=== PATIENT | male | born 1975 | race African-American/Black ===

== ENCOUNTER 2019-10-02 12:00 | Inpatient (IN) | payer SELFPAY ==
[2019-10-02] VITALS (16 sets, daily range): BP systolic 137–164; BP diastolic 86–110; PULSE 107–135; RESP 16–38; TEMP 36.7–37.4; O2SAT 91–99; BMI 24.0
--- NOTE | ~2019-10-02 | XR_ITS ---
EXAMINATION: XR chest 1V portable DATE: 10/13/2019 05:57 INDICATION: Pneumonia. Intubated. TECHNIQUE: A single frontal view of the chest was obtained. COMPARISON: Chest single view 10/12/2019 FINDINGS: There are airspace opacities throughout the lungs bilaterally with sparing of the lateral c ostophrenic angles and lung apices. No pleural effusion or pneumothorax. The heart size is normal. Th e endotracheal tube. There is 4.8 cm above the kellie. The nasogastric tube tip is beyond the inferio r margin of the radiograph, but at least to the stomach. IMPRESSION: 1. Stable diffuse lung disease, most likely pneumocystis pneumonia. Reviewed, dictated and finalized at location A.
--- NOTE | ~2019-10-02 | XR_ITS ---
EXAMINATION: XR chest 1V portable INDICATION: Pneumonia TECHNIQUE: Portable AP chest at 0840 hours COMPARISON: 10/18/2019 FINDINGS: Diffuse bilateral airspace opacities persist with slight improvement in the right mid and l ower lung zones. There is no pleural effusion or pneumothorax. The cardiomediastinal silhouette is no rmal. IMPRESSION: 1. Diffuse lung disease with mild improvement in the right mid and lower lung zones, consistent with pneumocystis pneumonia. Reviewed, dictated and finalized at location A. IMPRESSION: 1. Diffuse lung disease with mild improvement in the right mid and lower lung z ones, consistent with pneumocystis pneumonia.
--- NOTE | ~2019-10-02 | XR_ITS ---
EXAMINATION: XR abdomen obstructive series DATE: 10/15/2019 09:28 INDICATION: Abdominal distention TECHNIQUE: Upright and supine views of the abdomen were obtained. COMPARISON: 10/12/2019 FINDINGS: The nasogastric tube is in the stomach. There are no dilated loops of bowel. No free intrap eritoneal gas is identified. A right-sided femoral catheter ends with its tip projecting in a right c ommon iliac vessel. Diffuse opacities are again noted in the lung bases. IMPRESSION: 1. Nonobstructive bowel gas pattern. Reviewed, dictated and finalized at location A.
--- NOTE | ~2019-10-02 | XR_ITS ---
EXAMINATION: XR chest ET placement DATE: 10/14/2019 00:38 INDICATION: Intubation. TECHNIQUE: A single frontal view of the chest was obtained. COMPARISON: Chest single view 10/13/2019 FINDINGS: There are airspace opacities throughout the lungs with sparing of the lung apices and later al costophrenic angles. No pleural effusion or pneumothorax. The heart size is normal. The endotrache al tube tip is 3.5 cm above the kellie. The nasogastric tube tip is in the stomach. IMPRESSION: 1. Stable diffuse lung disease, most likely pneumocystis pneumonia. Reviewed, dictated and finalized at location A.
--- NOTE | ~2019-10-02 | XR_ITS ---
EXAMINATION: XR chest ET placement, XR abdomen NG/feed tube insert DATE: 10/12/2019 02:57 INDICATION: TECHNIQUE: 1. Frontal view of the chest was obtained. 2. AP view of the abdomen was obtained. COMPARISON: Chest radiograph dated 10/08/2019 FINDINGS: Endotracheal tube tip 4.6 cm above the kellie. Significant worsening of diffuse relatively uniform i nterstitial and hazy airspace opacities also relatively sparing the subpleural lungs consistent with worsening moderate pulmonary edema versus less likely pneumonia. No pleural effusion or pneumothorax. Cardiomediastinal silhouette is normal. Nasogastric tube tip in proximal side port in the body of the stomach. Gas-filled but not frankly dil ated small bowel in the abdomen. IMPRESSION: 1. Worsening moderate pulmonary edema versus less likely pneumonia. 2. Nonspecific bowel gas pattern with gas-filled but not frankly dilated small bowel which could repr esent ileus, early/partial small bowel obstruction or gaseous distention from back mask ventilation i n the appropriate clinical setting. Reviewed, dictated and finalized at location A. IMPRESSION: 1. Worsening moderate pulmonary edema versus less likely pneumonia. 2. Nonspecific bowel gas pattern with gas-filled but not frankly dilated small bowel which could represent ileus, early/partial small bowel obstruction or gas eous distention from back mask ventilation in the appropriate clinical setting.
--- NOTE | ~2019-10-02 | XR_ITS ---
EXAMINATION: XR chest 1V portable DATE: 10/18/2019 05:16 INDICATION: Respiratory failure. TECHNIQUE: A single frontal view of the chest was obtained. COMPARISON: Chest single view 10/17/2019 FINDINGS: There are airspace opacities throughout the lungs bilaterally with sparing of the lateral c ostophrenic angles and lung apices. No pleural effusion or pneumothorax. The heart size is normal. IMPRESSION: 1. Diffuse lung disease with slight improvement on the left, consistent with pneumocystis pneumonia. Reviewed, dictated and finalized at location A. IMPRESSION: 1. Diffuse lung disease with slight improvement on the left, consistent with pn eumocystis pneumonia.
--- NOTE | ~2019-10-02 | XR_ITS ---
EXAMINATION: XR chest 1V portable DATE: 10/16/2019 06:13 INDICATION: Respiratory failure. TECHNIQUE: A single frontal view of the chest was obtained. COMPARISON: Chest single view 10/15/2019 FINDINGS: There are airspace opacities at the lungs bilaterally with sparing of the lateral costophre betty angles and lung apices. No pleural effusion or pneumothorax. The heart size is normal. The endotr acheal tube tip is 4.5 cm above the kellie. The nasogastric tube tip is beyond the inferior margin of the radiograph, but at least to the stomach. IMPRESSION: 1. Stable diffuse lung disease, consistent with pneumocystis pneumonia. Reviewed, dictated and finalized at location A.
--- NOTE | ~2019-10-02 | XR_ITS ---
EXAMINATION: XR chest 1V portable DATE: 10/17/2019 06:12 INDICATION: Respiratory failure. TECHNIQUE: A single frontal view of the chest was obtained. COMPARISON: Chest single view 10/16/2019 FINDINGS: There are airspace opacities throughout the lungs bilaterally with sparing of the lateral c ostophrenic angles and lung apices. No pleural effusion or pneumothorax. The heart size is normal. Th e endotracheal tube tip is 3.8 cm above the kellie. The nasogastric tube tip is in the stomach. IMPRESSION: 1. Diffuse lung disease with slight worsening on the right, consistent with pneumocystis pneumonia. Reviewed, dictated and finalized at location A. IMPRESSION: 1. Diffuse lung disease with slight worsening on the right, consistent with pne umocystis pneumonia.
--- NOTE | ~2019-10-02 | XR_ITS ---
EXAMINATION: XR chest 1V portable DATE: 10/15/2019 06:13 INDICATION: Respiratory failure. TECHNIQUE: A single frontal view of the chest was obtained. COMPARISON: Chest single view 10/14/2019 FINDINGS: There are airspace opacities throughout the lungs bilaterally with sparing of the lateral c ostophrenic angles and lung apices. No pleural effusion or pneumothorax. The heart size is normal. Th e endotracheal tube tip is 4.2 cm above the kellie. The nasogastric tube tip is in the stomach. IMPRESSION: 1. Stable diffuse lung disease, most likely pneumocystis pneumonia. Reviewed, dictated and finalized at location A.
--- NOTE | ~2019-10-02 | CT_ITS ---
EXAMINATION: CTA chest PE protocol DATE: 10/04/2019 11:14 INDICATION: Shortness of breath, hypoxia and tachycardia TECHNIQUE: Computed tomography (CT) pulmonary angiogram of the chest was performed with 100 mL Omnipa que-350 intravenous contrast. Additional 3D reconstructions utilizing coronal maximum intensity proje ction (MIP) were performed. Automated exposure control and iterative reconstruction technique were em ployed. The dose-length product was 233.26 mGy-cm. COMPARISON: None FINDINGS: Excellent contrast opacification of the pulmonary arteries. There is mild streak artifact from dense contrast in the superior vena cava and right atrium. No significant respiratory motion living diagnos tic quality study which demonstrates no pulmonary embolism. Mild paraseptal emphysema at the apices. There are diffuse groundglass opacities throughout both lungs with sparing of the immediate subpleura l lung. No septal line thickening or pleural effusion. Heart size is normal. No pericardial effusion. No pathologically enlarged thoracic lymphadenopathy. Visualized upper abdomen is unremarkable. Mild thoracolumbar dextrocurvature. IMPRESSION: 1. No pulmonary embolism. 2. Diffuse groundglass opacities throughout both lungs sparing the immediate subpleural lung. Differe ntial would include pulmonary edema although there is no septal line thickening to more specifically suggest this, atypical pneumonia (pattern would be atypical for Covid 19 but can be seen with pneumoc ystis jiroveci or other viral pneumonias), hypersensitivity pneumonitis, lymphocytic interstitial pne umonitis or nonspecific interstitial pneumonia which can be drug-induced, autoimmune or connective ti ssue disorder related. 3. Mild emphysema at the apices. Reviewed, dictated and finalized at location A. IMPRESSION: 1. No pulmonary embolism. 2. Diffuse groundglass opacities throughout both lungs sparing the immediate colin bpleural lung. Differential would include pulmonary edema although there is no septal line thickening to more specifically suggest this, atypical pneumonia (p attern would be atypical for Covid 19 but can be seen with pneumocystis jirovec i or other viral pneumonias), hypersensitivity pneumonitis, lymphocytic interst itial pneumonitis or nonspecific interstitial pneumonia which can be drug-induc ed, autoimmune or connective tissue disorder related. 3. Mild emphysema at the apices.
--- NOTE | ~2019-10-02 | XR_ITS ---
EXAMINATION: XR chest 2V DATE: 10/08/2019 14:07 INDICATION: Shortness of breath. Pneumonia. TECHNIQUE: Frontal and lateral views of the chest were obtained. COMPARISON: Chest single view 10/02/2019, chest CT 10/04/2019 FINDINGS: There are hazy airspace opacities throughout the lungs bilaterally with sparing of the cost ophrenic angles. No pleural effusion or pneumothorax. The heart size is normal. IMPRESSION: 1. Stable diffuse lung disease, most likely pneumocystis pneumonia. Reviewed, dictated and finalized at location B.
--- NOTE | ~2019-10-02 | XR_ITS ---
EXAMINATION: XR chest 1V portable INDICATION: Cough TECHNIQUE: Portable AP chest at 1243 hours COMPARISON: None available FINDINGS: There are diffuse bilateral airspace opacities. No pleural effusion or pneumothorax is iden tified. The cardiomediastinal silhouette is normal. The visualized osseous structures are unremarkabl e. IMPRESSION: 1. Diffuse lung disease, likely pneumonia. Distribution of disease is concerning for COVID 19 pneumon ia. Reviewed, dictated and finalized at location A. IMPRESSION: 1. Diffuse lung disease, likely pneumonia. Distribution of disease is concernin g for COVID 19 pneumonia.
--- NOTE | ~2019-10-02 | XR_ITS ---
EXAMINATION: XR chest 1V portable DATE: 10/13/2019 08:37 INDICATION: Respiratory failure. TECHNIQUE: A single frontal view of the chest was obtained. COMPARISON: Chest single view at 5:39 AM FINDINGS: There are airspace opacities throughout the lungs bilaterally with sparing of the lateral c ostophrenic angles and lung apices. No pleural effusion or pneumothorax. The heart size is normal. Th e endotracheal tube tip is 4.0 cm above the kellie. The nasogastric tube tip is beyond the inferior m argin of the radiograph, but at least to the stomach. IMPRESSION: 1. Stable diffuse lung disease, most likely pneumocystis pneumonia. Reviewed, dictated and finalized at location A.
--- NOTE | 2019-10-02 12:08 | ECG_ITS ---
Measurements Intervals [place] Rate: 118 P: 59 [place]: 112 QRS: 67 QRSD: 84 T: 61 QT: 304 QTc: 426 Interpretive Statements SINUS TACHYCARDIA ABNORMAL ECG Electronically Signed On 10-02-2019 12:54:14 CDT by Daniel Ngo D.O.
[2019-10-02 12:38] LABS: Basophils Percent Auto 0.2 % (0.2-1.2); Eosinophils Absolute Auto 0.1 K/mm3 (0-0.3); Eosinophils Percent Auto 0.4 % (0-4.4); Hematocrit 45.3 % (42.0-52.0); Hemoglobin 15.4 g/dL (14.0-18.0); Immature Granulocyte Absolute 0.28 K/mm3 (0.00-0.031); Immature Granulocyte Percent A 1.8 % (0-0.5); Lymphocytes Absolute Auto 1.73 K/mm3 (0.9-3.2); Lymphocytes Percent Auto 11.1 % (18.3-44.2); Mean Corpuscular Hemoglobin 29.4 pg (26-34); Mean Corpuscular Volume 86.5 fl (80-100); Monocytes Absolute Auto 0.9 K/mm3 (0.1-0.6); Neutrophils Absolute Auto 12.5 K/mm3 (1.3-6.7); Neutrophils Percent Auto 80.5 % (45.5-73.1); Platelet Count Result 431 k/mm3 (150-375); Red Blood Count 5.24 M/mm3 (4.6-6.20); Red Cell Distribution Width 11.9 % (11.5-14.5); White Blood Count 15.6 K/mm3 (4.5-10.0)
[2019-10-02 13:04] LABS: Anion Gap 11.6 mmol/L (7-16); Blood Urea Nitrogen 17 mg/dL (9-20); Calcium 9.4 mg/dL (8.4-10.2); Carbon Dioxide 25 mmol/L (22-30); Chloride 100 mmol/L (98-107); Estimated CRCL calculation 97 ml/min; Estimated Glomerular Filt Rate > 60; Glucose 100 mg/dL (75-110); Potassium 4.6 mmol/L (3.4-5.0); Sodium 132 mmol/L (137-145)
[2019-10-02] MEDS: SODIUM CHLORIDE 0.9% IV 1,000 ML 999 ML IV CONT (13:09)
[2019-10-02 13:10] LABS: Lactic Acid Reflex 1.3 mmol/L (0.7-2.1)
[2019-10-02 13:15] LABS: Alanine Aminotransferase 16 U/L (4-50); Albumin Level 3.4 g/dL (3.5-5.1); Alkaline Phosphatase 86 U/L (38-126); Aspartate Amino Transferase 44 U/L (17-59); Bilirubin,Total 0.3 mg/dL (0.2-1.3)
[2019-10-02 13:29] LABS: CRP 23.5 mg/dL (<1.0)
[2019-10-02 13:36] LABS: D Dimer 0.31 ug/mL (<0.48)
--- NOTE | 2019-10-02 14:06 | ED.SOB ---
HPI - SOB/Dyspnea General Chief Complaint: Shortness of Breath/Dyspnea <BARBARA Cantrell Last Filed: 10/02/19 14:12> Stated Complaint: cough, trouble breathing <BARBARA Cantrell Last Filed: 10/02/19 14:12> Time Seen by Provider: 10/02/19 12:19 <BARBARA Cantrell Last Filed: 10/02/19 14:12> Source: patient and family <BARBARA Cantrell Last Filed: 10/02/19 14:12> Mode of arrival: ambulatory <BARBARA Cantrell Last Filed: 10/02/19 14:12> Limitations: no limitations <BARBARA Cantrell Filed: 10/02/19 14:12> History of Present Illness HPI Narrative: Patient is a 44-year-old male who presents to emergency department for evaluation of upper respiratory symptoms and shortness of breath patient notes sick contact with COVID positive individual patient notes that the symptoms have been present for the last 10 days and have progressed patient denies vomiting does note dyspnea worse with activity and movement <BARBARA Cantrell Last Filed: 10/02/19 14:12> Related Data Home Medications: Home Medications Medication Instructions Recorded Confirmed ascorbic acid (vitamin C) 500 mg PO DAILY 10/02/19 10/02/19 fish [id number]-5-vit C-vit E 1 g PO DAILY 10/02/19 10/02/19 ginseng 250 mg PO DAILY 10/02/19 10/02/19 vitamin B complex [B 1 tablet PO DAILY 10/02/19 10/02/19 Complex-Vitamin B12] vitamin E 1,000 unit PO DAILY 10/02/19 10/02/19 <BARBARA Cantrell Last Filed: 10/02/19 14:12> Allergies/Adverse Reactions: Allergies Allergy/AdvReac Type Severity Reaction Status Date / Time strawberry Allergy Swelling Verified 10/02/19 14:02 of Lip/Tongue/Throat tomato Allergy Swelling Verified 10/02/19 14:03 of Lip/Tongue/Throat zinc Allergy Rash Verified 10/02/19 14:02 <BARBARA Cantrell Last Filed: 10/02/19 14:12> Review of Systems Review of Systems: All systems reviewed & are unremarkable except as noted in HPI and below <Griffin Munoz PA-C - Last Filed: 10/02/19 14:12> PMFSH Family History Family History: Family History (Updated 10/02/19 @ 16:05 by Keke Harris RN) Mother Cancer COVID-19 Father COVID-19 Sibling Diabetes mellitus Hypertension <Griffin Munoz PA-C - Last Filed: 10/02/19 14:12> Social History Social History: Social History (Updated 10/02/19 @ 14:07 by Griffin Munoz PA-C) Years smoked: 5 Smoking status: Former smoker Tobacco type: cigars Smoking end date: 09/18/19 Additional smoking assessment comments: 1 cigar per day Alcohol intake: current Substance use type: marijuana Other substance usage details: medical marijuana, social drinker Gender identity (if verbalized by the patient): Male Spiritual care concerns: No <Griffin Munoz PA-C - Last Filed: 10/02/19 14:12> Exam Narrative: Exam Narrative: GENERAL: Well-appearing, well-nourished, and in no acute distress. HEAD: Normocephalic, atraumatic. EYES: PERRLA and EOMI. ENT: Nares clear, no rhinorrhea or epistaxis. Mucous membranes moist. Oropharynx without tonsillar hypertrophy exudate or other lesions. Bilateral TMs pearly lane nonbulging NECK: Supple. No adenopathy or masses. CHEST: Coarse breath sounds on auscultation auscultation. No respiratory distress. No wheezes rales or rhonchi HEART: Regular rate and rhythm. No murmur heard. EXTREMITIES: Normal range of motion. No edema. SKIN: Warm, dry, no rash. NEURO: No focal deficits. Alert and oriented x3. PSYCH: Normal mood and affect. <Griffin Munoz PA-C - Last Filed: 10/02/19 14:12> Course Course Emergency Course: Patient in the room at this time aware of case findings treatment plan and will be admitted to the hospital due to hypoxemia and pneumonia likely attributed to COVID which she was tested for patient given antibiotics and fluids in the emergency department. . <Griffin Quispe
[2019-10-02] MEDS: KETOROLAC 30 MG/ML VIAL (*BKC) IV PUSH (15:12)
[2019-10-02] MEDS: LACTATED RINGERS 1,000 ML 125 ML IV CONT ×2 (15:19→22:49)
--- NOTE | 2019-10-02 15:45 | ADMGEN ---
This patient, Kirt Ramos, was admitted to [facility] Surg Room 331-01. Patient/family oriented to hospital policies and general routines including ID bracelet, bed and alarms, visiting hours, pain management, procedures, bathroom and other care routines, personal items, smoking policy, room service/diet, and visiting hours. Valuables list has been completed. Information on how to activate the Rapid Response Team has been discussed. Patient/Family are encouraged to report perceived risks to care and to ask questions if they do not understand what they are told or what they should do.
[2019-10-02] MEDS: hydrALAZINE HCL 20 MG/ML VIAL 10 MG IV PUSH (18:30)
[2019-10-02] MEDS: FAMOTIDINE 20 MG/2 ML VIAL IV PUSH (20:00)
[2019-10-02] MEDS: LABETALOL HCL INJ 100 MG/20 ML VIAL 20 MG IV PUSH (20:50)
[2019-10-02] MEDS: MELATONIN 5 MG TABLET PO (22:46)
[2019-10-03] VITALS (31 sets, daily range): BP systolic 154–170; BP diastolic 90–110; PULSE 116–155; RESP 18–24; TEMP 37–39.4; O2SAT 86–100; BMI 24.0
[2019-10-03 00:24] LABS: SARS-CoV-2 RNA PCR Negative
[2019-10-03] MEDS: BENZOCAINE 20% HEMORRHOIDAL OINTMENT 28 GM 1 APPLIC TOPICAL (01:15)
--- NOTE | 2019-10-03 03:18 | ECG_ITS ---
Measurements Intervals [place] Rate: 136 P: 46 ID: 150 QRS: 41 QRSD: 85 T: 14 QT: 268 QTc: 404 Interpretive Statements SINUS TACHYCARDIA NONSPECIFIC T-WAVE ABNORMALITY- INFERIOR LEADS ABNORMAL ECG Electronically Signed On 10-03-2019 7:04:34 CDT by Daniel Ngo D.O.
[2019-10-03 06:09] LABS: Basophils Percent Auto 0.2 % (0.2-1.2); Eosinophils Absolute Auto 0.1 K/mm3 (0-0.3); Eosinophils Percent Auto 0.5 % (0-4.4); Hematocrit 39.6 % (42.0-52.0); Hemoglobin 13.6 g/dL (14.0-18.0); Immature Granulocyte Absolute 0.16 K/mm3 (0.00-0.031); Immature Granulocyte Percent A 1.3 % (0-0.5); Lymphocytes Absolute Auto 1.31 K/mm3 (0.9-3.2); Lymphocytes Percent Auto 10.7 % (18.3-44.2); Mean Corpuscular HGB Conc 34.3 g/dl (32-36); Mean Corpuscular Hemoglobin 29.3 pg (26-34); Mean Corpuscular Volume 85.3 fl (80-100); Mean Platelet Volume 9.5 fl (7.4-10.4); Monocytes Absolute Auto 0.9 K/mm3 (0.1-0.6); Neutrophils Absolute Auto 9.9 K/mm3 (1.3-6.7); Neutrophils Percent Auto 80.3 % (45.5-73.1); Platelet Count Result 429 k/mm3 (150-375); Red Blood Count 4.64 M/mm3 (4.6-6.20); Red Cell Distribution Width 11.7 % (11.5-14.5); White Blood Count 12.3 K/mm3 (4.5-10.0)
[2019-10-03] MEDS: LACTATED RINGERS 1,000 ML 125 ML IV CONT (06:13)
[2019-10-03 06:28] LABS: Alanine Aminotransferase 16 U/L (4-50); Alkaline Phosphatase 76 U/L (38-126); Anion Gap 9.6 mmol/L (7-16); Aspartate Amino Transferase 41 U/L (17-59); Bilirubin,Total 0.1 mg/dL (0.2-1.3); Blood Urea Nitrogen 12 mg/dL (9-20); Calcium 8.6 mg/dL (8.4-10.2); Carbon Dioxide 29 mmol/L (22-30); Chloride 101 mmol/L (98-107); Estimated CRCL calculation 97 ml/min; Estimated Glomerular Filt Rate > 60; Glucose 104 mg/dL (75-110); Potassium 4.6 mmol/L (3.4-5.0); Sodium 135 mmol/L (137-145)
[2019-10-03] MEDS: hydrALAZINE HCL 20 MG/ML VIAL 10 MG IV PUSH ×2 (06:48→20:07)
--- NOTE | 2019-10-03 07:36 | PC.NURSE ---
Called and notified Jolene CARRILLO that patient COIVD test was negative.
[2019-10-03] MEDS: FAMOTIDINE 20 MG/2 ML VIAL IV PUSH ×2 (08:20→20:07)
[2019-10-03 09:39] LABS: Creatine Kinase 22 U/L (55-170); Lactate Dehydrogenase 1160 U/L (313-618)
[2019-10-03] MEDS: guaiFENesin 12 HR 600 MG TABCR PO ×2 (10:00→20:07)
[2019-10-03] MEDS: ALBUTEROL SULFATE (*SP) INHALER 1 PUFF (12:07)
[2019-10-03] MEDS: ALBUTEROL SULFATE (*SP) AEROSOL 1 PUFF 2 PUFF INHALATION ×2 (12:07→16:05)
--- NOTE | 2019-10-03 13:24 | PM.IMHP ---
H&P: HPI History of Present Illness Date/Time: 10/03/19 13:24 <Jolene Clarke PA-C - Last Filed: 10/03/19 20:30> Chief complaint: pneumonia,hyoxemia <Jolene Clarke PA-C - Last Filed: 10/03/19 20:30> Narrative: Date of admission: 10/02/2019 Date of service: 10/03/2019 Kirt Ramos is a healthy 44 year old male with no significant past medical history who presented to the emergency department on 10/02/2019 with complaints of shortness of breath. He had been having symptoms of shortness of breath and congestion for approximately 2 weeks along with subjective fevers (although he did not check his temperature), chills, cough, and weakness. He had been taking Sudafed and NyQuil at home. His symptoms persisted and he felt very short of breath while walking around at work yesterday, and therefore he felt he needed to seek emergency care. He complains of productive cough with yellow to clear sputum as well as dyspnea on exertion with short distances. He denied any chest pain, wheezing, palpitations, sore throat. He did complain of chest congestion. He had not had nausea or vomiting. He feels fatigued and run down. He has poor appetite but denies loss of taste or smell. He also has a mild headache. 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 His mom, dad, brother, and uncle have all tested positive for COVID, but he denies any direct contact with them. He has not traveled. Additionally, he complains of 10/10 rectal pain secondary to a hemorrhoid. He noticed this about 1.5 weeks ago and he believes it is due to straining. He also noted that he has had looser stools the past week. <Jolene Clarke PA-C - Last Filed: 10/03/19 20:30> Review of Systems Review of Systems: Narrative: He 12 point review of systems was reviewed with pertinent positives and negatives as per HPI. Additionally, he denies any dizziness, lightheadedness, confusion, visual changes, dysphagia, dysuria, hematuria, bleeding, bruising, anxiety, or depression. <Jolene Clarke PA-C - Last Filed: 10/03/19 20:30> [facility] Past Medical History Medical History: Medical History Healthy adult male Hemorrhoids Unspecified asthma in childhood <Jolene Clarke PA-C - Last Filed: 10/03/19 20:30> Family History Family History: Family History Mother COVID-19 Carcinoma of colon Breast cancer Father , Oct 05, 2019 at [facility] an hour after intubation, age 68 COVID-19 Sibling Diabetes mellitus Hypertension <Jolene Clarke PA-C - Last Filed: 10/03/19 20:30> Social History Social History: Social History Social History: Mr. Ramos lives in an apartment with his aunt. 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 He designates his mom, Zeina, as his surrogate decision maker. He would like to be a full code. Years smoked: 4 Smoking status: Former smoker Tobacco type: cigars Smoking end date: 09/18/19 Additional smoking assessment comments: Smokes 2 cigars per day. Stopped 2 weeks ago when he became SOB. No vaping. 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 Gender identity (if verbalized by the patient): Male Spiritual care concerns: No <Jolene Clarke PA-C - Last Filed: 10/03/19 20:30> Meds Home Medications and Allergies Home medications: Home Medications Medication Instructions Recorded Confirmed Type ascorbic acid (vitamin C) 500 mg PO DAILY 10/02/19 10/02/19 History fish [id number]-[id number]-9-vit C-vit E 1 g PO DAILY 10/02/19 10/02/19 History ginsen
[2019-10-03] MEDS: METOPROLOL TARTRATE INJ 5 MG/5 ML VIAL IV PUSH (14:03)
[2019-10-03] MEDS: amLODIPine BESYLATE 5 MG TABLET PO (14:04)
[2019-10-03] MEDS: HYDROCORTISONE ACETATE 25 MG SUPPOSITORY RECTAL (14:31)
[2019-10-03] MEDS: ACETAMINOPHEN 325 MG TABLET 650 MG PO (14:31)
[2019-10-03 18:52] LABS: SARS-CoV-2 RNA PCR Negative
[2019-10-03] MEDS: DOCUSATE SODIUM 100 MG CAPSULE PO (20:07)
[2019-10-03] MEDS: MELATONIN 5 MG TABLET PO (20:09)
--- NOTE | 2019-10-03 22:01 | PM.EVENT ---
Event Note Event Note Event Note: The patient is desatting. So we put him on 6 L any still continue to saturate in 80s. We tried high-flow oxygen needs now 100%. The patient is diaphoretic and has a fever of 103. His blood pressure is up in his heart rate is up. With I ordered labetalol for him due to the high blood pressure and heart rate. I also ordered him IV Tylenol as a feel that his heart rate may go down once the temperature comes down. I discussed intubating the patient due to his tachypnea and the patient stated he does not want to be intubated. We will continue with the high-flow for now. But if he drops any further we may have to moved to the intensive care unit. I spoke with my collaborative so that he may monitor him closely through the night.
[2019-10-03] MEDS: LABETALOL HCL INJ 100 MG/20 ML VIAL IV PUSH (22:05)
[2019-10-03] MEDS: cloNIDine HCL 0.2 MG TABLET PO (23:23)
[2019-10-04] VITALS (15 sets, daily range): BP systolic 133–143; BP diastolic 75–103; PULSE 106–127; RESP 16–107; TEMP 36.8–37.9; O2SAT 90–96
[2019-10-04] MEDS: ACETAMINOPHEN 325 MG TABLET 650 MG PO (02:35)
[2019-10-04 07:21] LABS: Hematocrit 43.7 % (42.0-52.0); Hemoglobin 14.6 g/dL (14.0-18.0); Mean Corpuscular HGB Conc 33.4 g/dl (32-36); Mean Corpuscular Hemoglobin 29.3 pg (26-34); Mean Corpuscular Volume 87.8 fl (80-100); Platelet Count Result 448 k/mm3 (150-375); Red Blood Count 4.98 M/mm3 (4.6-6.20); Red Cell Distribution Width 11.9 % (11.5-14.5); White Blood Count 10.8 K/mm3 (4.5-10.0)
[2019-10-04 07:30] LABS: D Dimer 0.53 ug/mL (<0.48)
[2019-10-04 07:35] LABS: Alanine Aminotransferase 22 U/L (4-50); Albumin Level 3.1 g/dL (3.5-5.1); Alkaline Phosphatase 78 U/L (38-126); Anion Gap 11.5 mmol/L (7-16); Aspartate Amino Transferase 46 U/L (17-59); Bilirubin,Total 0.3 mg/dL (0.2-1.3); Blood Urea Nitrogen 16 mg/dL (9-20); Calcium 9.1 mg/dL (8.4-10.2); Carbon Dioxide 29 mmol/L (22-30); Chloride 97 mmol/L (98-107); Estimated CRCL calculation 86 ml/min; Estimated Glomerular Filt Rate > 60; Glucose 157 mg/dL (75-110); Lactate Dehydrogenase 1167 U/L (313-618); Potassium 4.5 mmol/L (3.4-5.0); Sodium 133 mmol/L (137-145)
--- NOTE | 2019-10-04 07:48 | PC.NURSE ---
Both of patient's covid tests have resulted as negative. Patient moved from rm [address] Gibson approved for patient to come off of isolation.
[2019-10-04 08:14] LABS: CRP 21.7 mg/dL (<1.0)
[2019-10-04] MEDS: ALBUTEROL SULFATE (*SP) AEROSOL 1 PUFF 2 PUFF INHALATION ×5 (08:55→19:50)
[2019-10-04] MEDS: amLODIPine BESYLATE 5 MG TABLET PO (09:39)
[2019-10-04] MEDS: DOCUSATE SODIUM 100 MG CAPSULE PO ×2 (09:39→21:22)
[2019-10-04] MEDS: FAMOTIDINE 20 MG/2 ML VIAL IV PUSH ×2 (09:39→21:22)
[2019-10-04] MEDS: guaiFENesin 12 HR 600 MG TABCR PO ×2 (09:40→21:22)
[2019-10-04 09:46] LABS: HIV 1/2 Ab P24 Ag 451
[2019-10-04 09:49] LABS: HIV 1/2 Ab P24 Ag Result Reactive (Negative)
--- NOTE | 2019-10-04 10:08 | PM.IMPN ---
Progress Note: A&P Assessment and Plan (1) Pneumonia: Qualifiers: Pneumonia type: due to unspecified organism Code(s): J18.9 - Pneumonia, unspecified organism Status: Acute Assessment and Plan: CXR shows diffuse lung disease, likely pneumonia. Initial CXR, labs, and clinical picture were highly suggestive of COVID-19, however patient had 2 negative tests. His symptoms have been ongoing approximately 2 weeks. His O2 requirements increased overnight to 6L high flow NC. He is now maintaining adequate oxygention on 2L high flow NC. Tmax 103.0. Continue IV rocephin Supportive care with supplemental O2, bronchodilators, incentive spirometer, cornet, mucinex, and acetaminophen as needed for fever. Monitor continuous pulse ox HIV screen drawn to evaluate for possible pneumonocystis pneumonia; found to be reactive Consult to infectious disease and recommendations are greatly appreciated. Sputum culture was inadequate for collection. Will attempt repeat sputum culture as well as fungal culture (2) Sinus tachycardia: Code(s): R00.0 - Tachycardia, unspecified Status: Acute Assessment and Plan: Review of telemetry reveals sinus tachycardia. On 10/01, HR elevated 120-130 and increased to 150s overnight. May be secondary to fever, infectious etiology, or pain. PE is considered given tachypnea, SOB, and hypoxia. TSH is wnl. HR is better controlled today in the 100-110s. He is not orthostatic. Continue to monitor HR on telemetry Chest CTA obtained today. Will await results. Continue Lovenox at this time. (3) Hypertension: Qualifiers: Hypertension type: essential hypertension Qualified Code(s): I10 - Essential (primary) hypertension Code(s): I10 - Essential (primary) hypertension Status: Acute Assessment and Plan: Blood pressure has been quite elevated since admission. He received IV hydralazine and labetalol with little improvement. He has no documented history of HTN but has not been evaluated in some time. Elevation may be exacerbated by pain. Continue amlodipine Continue prn hydralazine. Monitor blood pressures closely (4) Hemorrhoids: Qualifiers: Hemorrhoid type: unspecified Qualified Code(s): K64.9 - Unspecified hemorrhoids Code(s): K64.9 - Unspecified hemorrhoids Status: Acute Assessment and Plan: Secondary to straining. He has associated rectal pain but no rectal bleeding. Begin anusol suppository Begin colace to soften stool Continue benzocaine cream (5) Concern about sexually transmitted disease in male without diagnosis: Code(s): Z71.1 - Person with feared health complaint in whom no diagnosis is made Status: Acute Assessment and Plan: Reactive HIV screening 10/03. Patient has both receptive and penetrative sex with males. Approximately 8 months ago, he had protected sex using a condom with an HIV positive male who he reports had undetectable viral load. Reactive screening has been discussed with him. Check HIV RNA quantitative PCR, will await results Infectious disease consulted Subjective Date/time seen: 10/04/19 10:08 Interval history: Date of service: 10/04/2019 He is feeling better today. He has been coughing up clear sputum and feels that he is able to cough more readily. He got up and walked around his room this morning and did not have any HARRISON. He feels comfortable at rest. He felt feverish overnight but denies any fever or chills today. His appetite has been good. He denies dizziness, lightheadedness, weakness, chest pain, palpitations, abdominal pain, nausea, or vomiting. His pain related to his hemorrhoid has improved today. He had a soft BM this morning. Review of Systems Review of Systems: Narrative: A 12 point review of systems was reviewed with pertinent positives and negatives as per HPI. Exam Narrative: Exam Narrative: Mr. Ramos is ex
[2019-10-04] MEDS: ENOXAPARIN 60 MG/0.6 ML SYRINGE SUB-Q (10:30)
--- NOTE | 2019-10-04 14:04 | WPDINFPN2 ---
Progress Note: A&P Assessment and Plan (1) Concern about sexually transmitted disease in male without diagnosis: Code(s): Z71.1 - Person with feared health complaint in whom no diagnosis is made Status: Acute Assessment and Plan: + HIV screen, not a confirmed diagnosis, no AIDS. CAP REC Ctx and azithro. Await viral load confirmation Subjective Date/time seen: 10/04/19 14:04 Objective Data Vital Signs Vital Signs: Vital Signs - 24 hr 10/03/19 14:31 10/03/19 15:31 10/03/19 15:49 Temperature 38.7 C H 38.7 C H 38.2 C H Pulse Rate 123 H Respiratory Rate Blood Pressure 162/90 H Pulse Oximetry 10/03/19 16:00 10/03/19 18:00 10/03/19 20:00 Temperature 37.0 C 38.7 C H Pulse Rate 127 H 131 H 137 H Respiratory Rate 24 H 22 H Blood Pressure 160/100 H 164/109 H Pulse Oximetry 94 100 10/03/19 21:00 10/03/19 21:15 10/03/19 21:30 Temperature Pulse Rate 152 H 150 H Respiratory Rate Blood Pressure Pulse Oximetry 90 10/03/19 21:40 10/03/19 21:50 10/03/19 22:05 Temperature 39.4 C H Pulse Rate 150 H 150 H Respiratory Rate Blood Pressure Pulse Oximetry 100 86 L 100 10/03/19 22:06 10/03/19 22:36 10/03/19 23:00 Temperature 39.4 C H 38.7 C H Pulse Rate Respiratory Rate Blood Pressure 164/109 H Pulse Oximetry 10/03/19 23:20 10/04/19 00:00 10/04/19 02:35 Temperature 37.9 C H 37.6 C H Pulse Rate 127 H Respiratory Rate 18 Blood Pressure 138/75 Pulse Oximetry 96 96 10/04/19 03:35 10/04/19 04:00 10/04/19 04:02 Temperature 36.8 C 36.8 C Pulse Rate 106 H Respiratory Rate 20 107 H Blood Pressure 133/83 143/88 H Pulse Oximetry 96 10/04/19 04:04 10/04/19 06:19 10/04/19 08:00 Temperature 36.9 C Pulse Rate 108 H 110 H Respiratory Rate 18 Blood Pressure 143/90 H 137/103 H Pulse Oximetry 91 94 10/04/19 08:59 10/04/19 12:00 Temperature 37.1 C Pulse Rate 107 H Respiratory Rate 16 Blood Pressure 142/96 H Pulse Oximetry 94 94 Intake/Output Intake/Output: Intake & Output 10/01/19 10/02/19 10/03/19 10/04/19 23:59 23:59 23:59 23:59 Intake Total 2560 2180 150 Output Total 2400 500 Balance 2560 -220 -350 Meds/Results Medications: Active Medications Generic Name Dose Route Start Last Admin Trade Name Freq PRN Reason Stop Dose Admin Acetaminophen 650 mg 10/03/19 08:41 10/04/19 02:35 Tylenol Tablet PO 650 mg Q4H PRN Administration Fever, pain 1-3, OR MINER Albuterol 2 puff 10/03/19 12:00 10/04/19 08:58 Proventil Hfa INHALATION 2 puff QIDRT RASHAWN Administration Amlodipine Besylate 5 mg 10/03/19 13:20 10/04/19 09:39 Norvasc PO 5 mg QAM RASHAWN Administration Benzocaine 1 applic 10/03/19 01:09 10/03/19 01:15 Americaine Hemorrhoidal Ointment TOPICAL 1 applic Q4H PRN Administration Rectal Pain Docusate Sodium 100 mg 10/03/19 21:00 10/04/19 09:39 Colace Capsule PO 100 mg Q12HR RASHAWN Administration Enoxaparin Sodium 60 mg 10/04/19 09:00 Lovenox SUB-Q DAILY RASHAWN Famotidine 20 mg 10/02/19 21:00 10/04/19 09:39 Pepcid Iv IV PUSH 20 mg Q12HR RASHAWN Administration Guaifenesin 600 mg 10/03/19 09:00 10/04/19 09:40 Mucinex 12 Hr Tab PO 600 mg Q12HR RASHAWN Administration Hydralazine HCl 10 mg 10/03/19 19:41 10/03/19 20:07 Apresoline Hcl Inj IV PUSH 10 mg Q8H PRN Administration SBP >160 or DBP >105 Hydrocortisone Acetate 25 mg 10/03/19 13:44 10/03/19 14:31 Anusol-Hc Suppository RECTAL 25 mg Q12HR PRN Administration rectal pain Ceftriaxone Sodium/Dextrose 1 gm in 50 mls @ 100 mls/hr 10/03/19 15:00 10/03/19 14:46 Rocephin 1 Gm/D5w 50 Ml IVPB Infused Q24H RASHAWN Infusion Melatonin 5 mg 10/02/19 21:00 10/03/19 20:09 Melatonin PO 5 mg HS RASHAWN Administration Ondansetron HCl 4 mg 10/02/19 14:15 Zofran Inj IV PUSH Q4H PRN Nausea Radiology Results: ITS I
--- NOTE | 2019-10-04 15:18 | CONS_ITS ---
DATE OF CONSULTATION: 10/04/2019 REASON FOR CONSULTATION: Positive HIV screen. HISTORY OF PRESENT ILLNESS: The patient is a 44-year-old male who has had several sexual partners in the past. He reports a negative HIV screen about 4 months ago done just for his own reassurance and not due to any particular exposures. He is homosexual. He has never received blood transfusions, did not work in the healthcare field. His most recent sexual contact was with HIV-positive person, who reportedly was undetectable viral load. He began feeling ill about 2 weeks before admission with shortness of breath, nonproductive cough, followed by myalgias, fever sensation and generalized weakness. He presented to the emergency room and was admitted on the . His screen is not positive. Consultation requested. He has been on ceftriaxone and azithromycin is now being added. No other recent antibiotics. He has no pets at home. No wild animal exposures. No ill household contacts, although both parents have recently come down with drummond virus, but they have not been in contact with the patient. ALLERGIES: NO KNOWN DRUG ALLERGIES. HABITS: Stopped smoking at onset of his illness. Social drinker. PRESENT MEDICATIONS: As above. No immunosuppressants. PAST MEDICAL HISTORY: Denies any chronic medical illnesses. FAMILY HISTORY: Multiple cancers in his mother, also hypertension, diabetes. SOCIAL HISTORY: He is single. 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 REVIEW OF SYSTEMS: Constitutional, allergic, immunologic, respiratory, GI, and skin otherwise negative. PHYSICAL EXAMINATION: GENERAL: This is a middle-aged male, who appears his actual age, in no respiratory distress on supplemental O2. VITAL SIGNS: His temperature on arrival was normal. T-max yesterday afternoon up to 38.7 and lasting up to 39.4. 142/96, 107, 16, 94%. SKIN: No generalized rashes. EENT: The conjunctivae are normal. Oropharynx, oral mucosa normal, though nonspecific coating over his tongue, not suggestive of thrush. NECK: No masses. NODES: He has no axillary or cervical adenopathy. LUNGS: Clear to auscultation and percussion. CARDIAC: Tachycardic. Regular. No murmurs or gallops. ABDOMEN: Nontender, soft, scaphoid. No organomegaly. EXTREMITIES: Well perfused. No clubbing, cyanosis, edema. LABORATORY DATA: His HIV screen is as above. His white count was 12.3, now 10.8, hemoglobin 14.6, platelets are 448. Earlier differential showed minimal left shift. Sodium 133, down from 135. His glucose 137, but yesterday was 104. Ferritin is high. LDH 1167. CRP is 22. His COVID essay was nonreactive and urine Legionella pneumococcal antigens are in process. RADIOLOGY: I personally reviewed his chest x-ray, which shows a focal interstitial infiltrate in the right middle lobe. I also reviewed radiologist reading of his chest x-ray and chest CT. ASSESSMENT: 1. Dyspnea, cough, fever due to community-acquired pneumonia. His high ferritin does raise the possibility of drummond virus infection, although he has had a negative screen. 2. Positive HIV antibody, unconfirmed for diagnosis. Low suspicion for AIDS as a direct cause of #1. RECOMMENDATIONS: 1. Tobacco cessation. 2. Ceftriaxone and azithromycin. 3. Await viral load for the HIV before proceeding further. Thank you very much for asking me to see him. YAHAIRA DAVIS M.D. WEB OPERATIONS MANAGER WEB OPERATIONS MANAGER D I MT: Terri
[2019-10-04] MEDS: MELATONIN 5 MG TABLET PO (21:22)
[2019-10-04] MEDS: HYDROCORTISONE ACETATE 25 MG SUPPOSITORY RECTAL (21:22)
[2019-10-05] VITALS (17 sets, daily range): BP systolic 127–145; BP diastolic 77–98; PULSE 109–142; RESP 18–22; TEMP 37.1–37.8; O2SAT 84–99
[2019-10-05] MEDS: IBUPROFEN 600 MG TABLET PO ×2 (03:47→15:30)
[2019-10-05 06:10] LABS: Basophils Percent Auto 0.3 % (0.2-1.2); Eosinophils Percent Auto 0.3 % (0-4.4); Hematocrit 42.7 % (42.0-52.0); Hemoglobin 14.3 g/dL (14.0-18.0); Immature Granulocyte Absolute 0.29 K/mm3 (0.00-0.031); Immature Granulocyte Percent A 1.9 % (0-0.5); Lymphocytes Absolute Auto 1.45 K/mm3 (0.9-3.2); Lymphocytes Percent Auto 9.3 % (18.3-44.2); Mean Corpuscular HGB Conc 33.5 g/dl (32-36); Mean Corpuscular Hemoglobin 29.1 pg (26-34); Mean Platelet Volume 9.8 fl (7.4-10.4); Monocytes Absolute Auto 0.9 K/mm3 (0.1-0.6); Neutrophils Absolute Auto 12.9 K/mm3 (1.3-6.7); Neutrophils Percent Auto 82.2 % (45.5-73.1); Platelet Count Result 504 k/mm3 (150-375); Red Blood Count 4.91 M/mm3 (4.6-6.20); Red Cell Distribution Width 11.9 % (11.5-14.5); White Blood Count 15.6 K/mm3 (4.5-10.0)
[2019-10-05 06:28] LABS: Anion Gap 9.5 mmol/L (7-16); Blood Urea Nitrogen 23 mg/dL (9-20); CRP 8.1 mg/dL (<1.0); Calcium 9.2 mg/dL (8.4-10.2); Carbon Dioxide 29 mmol/L (22-30); Chloride 99 mmol/L (98-107); Estimated CRCL calculation 70 ml/min; Estimated Glomerular Filt Rate > 60; Glucose 116 mg/dL (75-110); Lactate Dehydrogenase 995 U/L (313-618); Potassium 4.5 mmol/L (3.4-5.0); Sodium 133 mmol/L (137-145)
[2019-10-05] MEDS: amLODIPine BESYLATE 5 MG TABLET PO (09:00)
[2019-10-05] MEDS: DOCUSATE SODIUM 100 MG CAPSULE PO ×2 (09:00→20:59)
[2019-10-05] MEDS: guaiFENesin 12 HR 600 MG TABCR PO ×2 (09:00→20:59)
[2019-10-05] MEDS: FAMOTIDINE 20 MG/2 ML VIAL IV PUSH ×2 (09:00→20:59)
[2019-10-05] MEDS: ENOXAPARIN 40 MG/0.4 ML SYRINGE SUB-Q (09:52)
[2019-10-05] MEDS: ALBUTEROL SULFATE (*SP) AEROSOL 1 PUFF 2 PUFF INHALATION ×4 (09:54→19:49)
[2019-10-05] MEDS: LORazepam 0.5 MG TABLET PO ×2 (10:16→20:59)
--- NOTE | 2019-10-05 11:25 | PM.IMPN ---
Progress Note: A&P Assessment and Plan (1) Pneumonia: Qualifiers: Pneumonia type: due to unspecified organism Code(s): J18.9 - Pneumonia, unspecified organism Status: Acute Assessment and Plan: CXR shows diffuse lung disease, likely pneumonia. Initial CXR, labs, and clinical picture were highly suggestive of COVID-19, however patient had 2 negative tests. His symptoms have been ongoing approximately 2 weeks. His O2 requirements have again increased overnight to 6L high flow NC. He has been fluctuating between 2-[address] showed diffuse groundglass opacities throughout bilateral lung jackman. Tmax 103.0. WBC 15.6. Continue IV rocephin and Azithromycin per ID recs Supportive care with supplemental O2, bronchodilators, incentive spirometer, cornet, mucinex, and acetaminophen as needed for fever. Monitor continuous pulse ox HIV screen drawn to evaluate for possible pneumonocystis pneumonia; found to be reactive Consult to infectious disease and recommendations are greatly appreciated. Sputum culture was inadequate for collection. Will attempt repeat sputum culture. Fungal culture and acid fast bacilli culture are pending. (2) Concern about sexually transmitted disease in male without diagnosis: Code(s): Z71.1 - Person with feared health complaint in whom no diagnosis is made Status: Acute Assessment and Plan: Reactive HIV screening 10/03. Patient has both receptive and penetrative sex with males. Approximately 8 months ago, he had protected sex using a condom with an HIV positive male who he reports had undetectable viral load. Reactive screening has been discussed with him. Check HIV RNA quantitative PCR, will await results Infectious disease consulted Will proceed with testing for additional STDs including hepatitis, gonorrhea, chlamydia, HSV, and RPR for syphilis (3) Sinus tachycardia: Code(s): R00.0 - Tachycardia, unspecified Status: Acute Assessment and Plan: Review of telemetry reveals sinus tachycardia. On 10/01, HR increased to 150s. Likely multifactorial given fever, infection, and pain. PE is considered given tachypnea, SOB, and hypoxia. TSH is wnl. HR is better controlled today in the 110s. He is not orthostatic. No pulmonary embolism seen on CTA. Continue to monitor HR on telemetry (4) Hypertension: Qualifiers: Hypertension type: essential hypertension Qualified Code(s): I10 - Essential (primary) hypertension Code(s): I10 - Essential (primary) hypertension Status: Acute Assessment and Plan: Blood pressure has been quite elevated since admission. He received IV hydralazine and labetalol with little improvement. He has no documented history of HTN but has not been evaluated in some time. BP seems to be improving with medication Continue amlodipine Continue prn hydralazine. He has not required any doses since 10/02. Monitor blood pressures closely (5) Hemorrhoids: Qualifiers: Hemorrhoid type: unspecified Qualified Code(s): K64.9 - Unspecified hemorrhoids Code(s): K64.9 - Unspecified hemorrhoids Status: Acute Assessment and Plan: Secondary to straining. He has associated rectal pain but no rectal bleeding. No evidence for thrombosis, abscess, or fissure. He has been having soft stools daily. Continue anusol suppository and benzocaine cream Continue colace to soften stool Will add lidocaine jelly (6) Emotional stress: Code(s): R45.7 - State of emotional shock and stress, unspecified Status: Acute Assessment and Plan: Unfortunately the patient's father today due to complications of COVID-19. The patient was informed by his family this morning. He feels sad but is handling the news as well as could be expected. Denies feeling depressed, hopeless, or suicidal ideation. He has spoken with his calender machine operator helper for support. He does feel this infor
[2019-10-05 11:56] LABS: Hepatitis B Surface Antigen Negative (Negative)
[2019-10-05 12:01] LABS: HAV RESULT Negative (Negative); Hepatitis B Core IgM Result Negative (Negative)
[2019-10-05 12:12] LABS: Hepatitis C Virus Antibody Reactive (Negative)
--- NOTE | 2019-10-05 14:15 | WPDINFPN2 ---
Progress Note: A&P Assessment and Plan (1) Concern about sexually transmitted disease in male without diagnosis: Code(s): Z71.1 - Person with feared health complaint in whom no diagnosis is made Status: Acute Assessment and Plan: 1. + HIV screen, not a confirmed diagnosis, no AIDS. 2. Hemorrhoids, with pain 3. CAP, still on O2, no + micro. 4. Hep C Ab + REC Ctx #4, and azithro #2, continue. Reorder ibuprofen for pain, and continue hydrocortisone suppository. Await viral load confirmation for both the HIV and the Hep C. Per patient wishes relayed to RN this AM, I did not discuss any personal health information with him today, due to visitors in the room. Subjective Date/time seen: 10/05/19 14:15 Interval history: hemorrhoid pain, not relieved with Tucks. Exam Narrative: Exam Narrative: afebrile Const: General: no acute distress Eyes: General: appearance normal, both eyes and all related structures Resp: Effort & Inspection: normal respiratory effort Auscultation: clear to auscultation bilaterally Cardio: Rate: regular rate Rhythm: regular rhythm Heart sounds: no murmurs GI: Inspection: non-distended GI Palp: Yes Soft to palpation and No Tenderness to palpation present (GI) Objective Data Vital Signs Vital Signs: Vital Signs - 24 hr 10/04/19 16:00 10/04/19 19:53 10/04/19 20:00 Temperature Pulse Rate 110 H 110 H Respiratory Rate 18 Blood Pressure Pulse Oximetry 90 94 10/04/19 22:00 10/05/19 00:00 10/05/19 02:00 Temperature 37.8 C H 37.7 C H Pulse Rate 110 H 114 H 115 H Respiratory Rate 18 18 Blood Pressure 140/90 145/96 H Pulse Oximetry 94 91 10/05/19 04:00 10/05/19 06:00 10/05/19 08:00 Temperature 37.2 C Pulse Rate 115 H 116 H 116 H Respiratory Rate 18 18 Blood Pressure 127/77 Pulse Oximetry 93 93 10/05/19 09:56 10/05/19 10:00 Temperature Pulse Rate Respiratory Rate Blood Pressure Pulse Oximetry 84 L 93 Intake/Output Intake/Output: Intake & Output 10/02/19 10/03/19 10/04/19 10/05/19 23:59 23:59 23:59 23:59 Intake Total 2560 2180 560 475 Output Total 2400 750 Balance 3571 -842 -334 335 Meds/Results Medications: Active Medications Generic Name Dose Route Start Last Admin Trade Name Freq PRN Reason Stop Dose Admin Acetaminophen 650 mg 10/03/19 08:41 10/04/19 02:35 Tylenol Tablet PO 650 mg Q4H PRN Administration Fever, pain 1-3, OR MINER Albuterol 2 puff 10/03/19 12:00 10/05/19 12:47 Proventil Hfa INHALATION 2 puff QIDRT RASHAWN Administration Amlodipine Besylate 5 mg 10/03/19 13:20 10/04/19 09:39 Norvasc PO 5 mg QAM RASHAWN Administration Benzocaine 1 applic 10/03/19 01:09 10/03/19 01:15 Americaine Hemorrhoidal Ointment TOPICAL 1 applic Q4H PRN Administration Rectal Pain Docusate Sodium 100 mg 10/03/19 21:00 10/04/19 21:22 Colace Capsule PO 100 mg Q12HR RASHAWN Administration Enoxaparin Sodium 40 mg 10/05/19 09:00 Lovenox SUB-Q DAILY RASHAWN Famotidine 20 mg 10/02/19 21:00 10/04/19 21:22 Pepcid Iv IV PUSH 20 mg Q12HR RASHAWN Administration Guaifenesin 600 mg 10/03/19 09:00 10/04/19 21:22 Mucinex 12 Hr Tab PO 600 mg Q12HR RASHAWN Administration Hydralazine HCl 10 mg 10/03/19 19:41 10/03/19 20:07 Apresoline Hcl Inj IV PUSH 10 mg Q8H PRN Administration SBP >160 or DBP >105 Hydrocortisone Acetate 25 mg 10/03/19 13:44 10/04/19 21:22 Anusol-Hc Suppository RECTAL 25 mg Q12HR PRN Administration rectal pain Ceftriaxone Sodium/Dextrose 1 gm in 50 mls @ 100 mls/hr 10/03/19 15:00 10/04/19 16:40 Rocephin 1 Gm/D5w 50 Ml IVPB Infused Q24H RASHAWN Infusion Azithromycin 500 mg in 250 mls @ 250 mls/hr 10/05/19 12:00 Zithromax IVPB Q24H RASHAWN Lidocaine HCl 1 applic 10/05/19 11:55 Lidocaine Jelly 2% MUCOUS MEM Q6H PRN Rectal pain Lorazepam 0.5 mg 10/05/19 09:41 10/05/19 10:16 Ativan T
[2019-10-05] MEDS: LIDOCAINE HCL 2% JELLY 30 ML TUBE 1 APPLIC MUCOUS MEM (15:55)
[2019-10-05] MEDS: MELATONIN 5 MG TABLET PO (20:59)
[2019-10-05] MEDS: ACETAMINOPHEN 325 MG TABLET 650 MG PO (21:00)
[2019-10-06] VITALS (13 sets, daily range): BP systolic 115–180; BP diastolic 57–108; PULSE 90–149; RESP 18–22; TEMP 36.7–38.7; O2SAT 90–97
--- NOTE | 2019-10-06 | ECHO_ITS ---
Patient Info Name: Kirt Ramos Age: 44 years : 1975 Gender: Male Ht: 64 in Wt: 139 lbs BSA: 1.70 m2 HR: 127 bpm BP: 120 / 62 mmHg Heart Rhythm: Tachycardia, Sinus Rhythm Technical Quality: Good Exam Date: 10/06/2019 7:09 AM Exam Location: [facility] Pul[facility] Patient Status: Inpatient Admit Date: 10/04/2019 Staff Ordering Physician: Le Bray DO Gear Cutter: Lauren Osman RDCS Attending Provider: Jolene Clarke PA-C Referring Physician: Asa GENAO; Exam Type: CA echo doppler color flow Study Info Complete two-dimensional, color flow and Doppler transthoracic echocardiogram is performed. Summary 1. Left ventricular systolic function is hyperdynamic, estimated at >70%, with cavity obliteration of the mid and distal left ventricle during systole. No focal wall motion abnormalities. Normal size with severe concentric hypertrophy. Diastolic dysfunction grade 1 is present. 2. There is elevated intraventricular velocity of 2.5 m/sec, up to 3 m/sec w/ Valsalva maneuver, with a corresponding gradient of 36 mmHg. This is consistent with outflow tract obstruction and possible HOCM, though can be seen with LVH + tachycardia + intravascular volume depletion. 3. Right ventricular size and function are normal. Right ventricular hypertrophy is present. 4. Mild pulmonary hypertension, estimated pulmonary arterial systolic pressure is 41 mmHg. 5. No significant valve disease. 6. A small atrial septal aneurysm is noted. 7. Sinus tachycardia present. Recommendations * Repeat Echo when pt is no longer tachycardic to re-evaluate for HOCM. Left Ventricle Left ventricular chamber dimension is normal. Left ventricular systolic function is hyperdynamic, estimated at >70%, with cavity obliteration of the mid and distal left ventricle during systole. No focal wall motion abnormalities. Normal size with severe concentric hypertrophy. Diastolic dysfunction grade 1 is present. There is severe concentric increased left ventricular wall thickness. Left ventricular septal wall motion is normal. The left ventricular diastolic function is grade I diastolic dysfunction. Right Ventricle Right ventricular size and function are normal. Right ventricular hypertrophy is present. Right ventricular systolic function is normal. Left Atria Left atrial chamber dimension is normal. Right Atria Right atrial chamber dimension is normal. Aortic Valve The aortic valve is trileaflet. There is no aortic valve sclerosis. There is no aortic valve stenosis. There is no aortic valve regurgitation. Pulmonic Valve The pulmonic valve is normal. There is no pulmonic valve stenosis. There is trace pulmonic regurgitation. Mitral Valve The mitral valve has normal leaflets. There is no mitral valve stenosis. There is trace mitral valve regurgitation. Tricuspid Valve The tricuspid valve leaflets are normal. There is no significant tricuspid valve stenosis. There is trace tricuspid valve regurgitation. Mild pulmonary hypertension, estimated pulmonary arterial systolic pressure is 41 mmHg. Pericardium/Pleural The pericardium appears normal. There is trivial pericardial effusion. Inferior Vena Cava Normal inferior vena cava with >50% collapse upon inspiration consistent with Empty right atrial pressure, 5 mmHg. Aorta The aortic root size at the sinus of Valsalva is normal. The prox ascending aorta size is normal. Left Ventricular Outflow Tract
[2019-10-06] MEDS: hydrALAZINE HCL 20 MG/ML VIAL 10 MG IV PUSH (01:50)
[2019-10-06] MEDS: ACETAMINOPHEN 325 MG TABLET 650 MG PO ×3 (01:50→23:41)
[2019-10-06] MEDS: IBUPROFEN 600 MG TABLET PO ×2 (02:00→18:53)
[2019-10-06] MEDS: SODIUM CHLORIDE 0.9% IV 1,000 ML 999 ML IV CONT (03:23)
--- NOTE | 2019-10-06 04:47 | ECG_ITS ---
Measurements Intervals [place] Rate: 126 P: 45 WV: 147 QRS: 27 QRSD: 84 T: 43 QT: 280 QTc: 407 Interpretive Statements SINUS TACHYCARDIA PEAKED T WAVES- CONSIDER HYPERKALEMIA OR ISCHEMIA ABNORMAL ECG Electronically Signed On 10-06-2019 8:10:12 CDT by Daniel Ngo D.O.
[2019-10-06] MEDS: SODIUM CHLORIDE 0.9% IV 1,000 ML 500 ML IV CONT (04:50)
[2019-10-06 06:35] LABS: Basophils Absolute Auto 0.1 K/mm3 (0.0-0.1); Basophils Percent Auto 0.3 % (0.2-1.2); Eosinophils Absolute Auto 0.1 K/mm3 (0-0.3); Eosinophils Percent Auto 0.5 % (0-4.4); Hematocrit 41.2 % (42.0-52.0); Hemoglobin 13.8 g/dL (14.0-18.0); Immature Granulocyte Absolute 0.35 K/mm3 (0.00-0.031); Immature Granulocyte Percent A 2.4 % (0-0.5); Lymphocytes Absolute Auto 1.39 K/mm3 (0.9-3.2); Lymphocytes Percent Auto 9.5 % (18.3-44.2); Mean Corpuscular HGB Conc 33.5 g/dl (32-36); Mean Corpuscular Hemoglobin 28.9 pg (26-34); Mean Corpuscular Volume 86.4 fl (80-100); Mean Platelet Volume 9.7 fl (7.4-10.4); Monocytes Absolute Auto 0.8 K/mm3 (0.1-0.6); Monocytes Percent Auto 5.6 % (2.6-8.5); Neutrophils Absolute Auto 11.9 K/mm3 (1.3-6.7); Neutrophils Percent Auto 81.7 % (45.5-73.1); Platelet Count Result 468 k/mm3 (150-375); Red Blood Count 4.77 M/mm3 (4.6-6.20); Red Cell Distribution Width 11.6 % (11.5-14.5); White Blood Count 14.6 K/mm3 (4.5-10.0)
[2019-10-06 07:02] LABS: D Dimer 0.58 ug/mL (<0.48)
[2019-10-06 07:04] LABS: Anion Gap 5 mmol/L (8-16); Blood Urea Nitrogen 18 mg/dL (9-20); CRP 12.6 mg/dL (<1.0); Calcium 8.4 mg/dL (8.4-10.2); Carbon Dioxide 27 mmol/L (22-30); Chloride 101 mmol/L (98-107); Estimated CRCL calculation 86 ml/min; Estimated Glomerular Filt Rate > 60; Glucose 108 mg/dL (75-110); Lactate Dehydrogenase 1196 U/L (313-618); Potassium 4.4 mmol/L (3.4-5.0); Sodium 133 mmol/L (137-145)
[2019-10-06] MEDS: ALBUTEROL SULFATE (*SP) AEROSOL 1 PUFF 2 PUFF INHALATION (08:47)
--- NOTE | 2019-10-06 09:48 | PM.IMPN ---
Progress Note: A&P Assessment and Plan (1) Pneumonia: Qualifiers: Pneumonia type: due to unspecified organism Laterality: bilateral Lung location: unspecified part of lung Qualified Code(s): J18.9 - Pneumonia, unspecified organism Code(s): J18.9 - Pneumonia, unspecified organism Status: Acute Assessment and Plan: CXR shows diffuse lung disease, likely pneumonia. Initial CXR, labs, and clinical picture were highly suggestive of COVID-19, however patient had 2 negative tests. His symptoms have been ongoing approximately 2 weeks. His O2 requirements have increased overnight to 7L high flow NC. He has been fluctuating between 2-[address] showed diffuse groundglass opacities throughout bilateral lung jackman. Tmax 103.0. WBC 14.6. Continue IV rocephin and Azithromycin per ID recs Supportive care with supplemental O2, bronchodilators, incentive spirometer, cornet, mucinex, and acetaminophen as needed for fever. Monitor continuous pulse ox HIV screen drawn to evaluate for possible pneumonocystis pneumonia; found to be reactive Consult to infectious disease and recommendations are greatly appreciated. Sputum culture was inadequate for collection. Will attempt repeat sputum culture. Fungal culture and acid fast bacilli culture are pending. Urine pneumococcal antigen not detected. (2) Concern about sexually transmitted disease in male without diagnosis: Code(s): Z71.1 - Person with feared health complaint in whom no diagnosis is made Status: Acute Assessment and Plan: Reactive HIV screening 10/03. Patient has both receptive and penetrative sex with males. Approximately 8 months ago, he had protected sex using a condom with an HIV positive male who he reports had undetectable viral load. Reactive screening has been discussed with him. Check HIV RNA quantitative PCR, will await results Infectious disease consulted Will proceed with testing for additional STDs including hepatitis, gonorrhea, chlamydia, HSV, and RPR for syphilis Hepatitis C was found to be reactive. Viral load pending. (3) Sinus tachycardia: Code(s): R00.0 - Tachycardia, unspecified Status: Acute Assessment and Plan: Review of telemetry reveals sinus tachycardia. On 10/01, HR increased to 150s. Likely multifactorial given fever, infection, and pain. PE is considered given tachypnea, SOB, and hypoxia. TSH is wnl. HR has increased today to the 130-140s. He is not orthostatic. No pulmonary embolism seen on CTA. Continue to monitor HR on telemetry Echo has been performed and will await results Begin cardizem 30 mg PO q6 (4) Hypertension: Qualifiers: Hypertension type: essential hypertension Qualified Code(s): I10 - Essential (primary) hypertension Code(s): I10 - Essential (primary) hypertension Status: Acute Assessment and Plan: Blood pressure has been quite elevated since admission. He received IV hydralazine and labetalol with little improvement. He has no documented history of HTN but has not been evaluated in some time. BP seems to be improving with medication Continue amlodipine Continue prn hydralazine. Monitor blood pressures closely (5) Hemorrhoids: Qualifiers: Hemorrhoid type: unspecified Qualified Code(s): K64.9 - Unspecified hemorrhoids Code(s): K64.9 - Unspecified hemorrhoids Status: Acute Assessment and Plan: Secondary to straining. He has associated rectal pain but no rectal bleeding. No evidence for thrombosis, abscess, or fissure. He has been having soft stools daily. Continue anusol suppository, benzocaine cream, and lidocaine jelly Continue colace to soften stool Acetaminophen as needed for pain (6) Emotional stress: Code(s): R45.7 - State of emotional shock and stress, unspecified Status: Acute Assessment and Plan: Unfortunately the patient's father yesterday due
[2019-10-06] MEDS: ENOXAPARIN 40 MG/0.4 ML SYRINGE SUB-Q (10:09)
[2019-10-06] MEDS: amLODIPine BESYLATE 5 MG TABLET PO (10:10)
[2019-10-06] MEDS: guaiFENesin 12 HR 600 MG TABCR PO ×2 (10:11→20:11)
[2019-10-06] MEDS: FAMOTIDINE 20 MG/2 ML VIAL IV PUSH ×2 (10:11→20:10)
[2019-10-06] MEDS: DOCUSATE SODIUM 100 MG CAPSULE PO ×2 (10:11→20:10)
[2019-10-06] MEDS: dilTIAZem HCL 30 MG TABLET PO ×3 (12:31→23:42)
[2019-10-06] MEDS: LEVALBUTEROL HFA (*SP) 15 GM INHALER 2 PUFF INHALATION ×2 (14:24→20:36)
[2019-10-06 14:52] LABS: Pneumococcal Antigen Urine Not Detected (Not Detected)
[2019-10-06 17:19] LABS: HIV 1 2 Ag Ab 4th Gen w Rflxs Reactive (Non-reactive); HIV 1 Ab Chg Test Yes; HIV 1 Antibody Positive (Negative); HIV 2 Ab Chg Test Yes; HIV 2 Antibody Negative (Negative)
--- NOTE | 2019-10-06 18:00 | PC.NURSE ---
Patient has been complaining of hemorrhoids all day, pain meds have been given. Patients finger has been in rectum upon every room round and med pass.
[2019-10-06] MEDS: MELATONIN 5 MG TABLET PO (20:11)
[2019-10-06] MEDS: LORazepam 0.5 MG TABLET PO (23:45)
[2019-10-06] MEDS: LIDOCAINE HCL 2% JELLY 30 ML TUBE 1 APPLIC MUCOUS MEM (23:47)
[2019-10-07] VITALS (18 sets, daily range): BP systolic 120–190; BP diastolic 75–98; PULSE 102–136; RESP 20–24; TEMP 37.1–38.5; O2SAT 90–98
[2019-10-07] MEDS: LEVALBUTEROL HFA (*SP) 15 GM INHALER 2 PUFF INHALATION ×4 (02:26→20:51)
[2019-10-07] MEDS: IBUPROFEN 600 MG TABLET PO ×3 (04:21→22:03)
[2019-10-07] MEDS: hydrALAZINE HCL 20 MG/ML VIAL 10 MG IV PUSH (04:44)
[2019-10-07] MEDS: dilTIAZem HCL 30 MG TABLET PO ×3 (05:06→17:41)
[2019-10-07] MEDS: SALINE 0.65% NAS SOLN 44 ML BTL 1 SPRAY NASAL (05:07)
[2019-10-07 06:32] LABS: Basophils Percent Auto 0.3 % (0.2-1.2); Eosinophils Absolute Auto 0.1 K/mm3 (0-0.3); Eosinophils Percent Auto 0.5 % (0-4.4); Hematocrit 39.2 % (42.0-52.0); Hemoglobin 13.1 g/dL (14.0-18.0); Immature Granulocyte Absolute 0.35 K/mm3 (0.00-0.031); Immature Granulocyte Percent A 2.3 % (0-0.5); Lymphocytes Absolute Auto 0.79 K/mm3 (0.9-3.2); Lymphocytes Percent Auto 5.1 % (18.3-44.2); Mean Corpuscular HGB Conc 33.4 g/dl (32-36); Mean Corpuscular Hemoglobin 28.6 pg (26-34); Mean Corpuscular Volume 85.6 fl (80-100); Mean Platelet Volume 9.8 fl (7.4-10.4); Monocytes Absolute Auto 0.6 K/mm3 (0.1-0.6); Monocytes Percent Auto 3.8 % (2.6-8.5); Neutrophils Absolute Auto 13.5 K/mm3 (1.3-6.7); Platelet Count Result 462 k/mm3 (150-375); Red Blood Count 4.58 M/mm3 (4.6-6.20); Red Cell Distribution Width 11.8 % (11.5-14.5); White Blood Count 15.4 K/mm3 (4.5-10.0)
[2019-10-07 07:24] LABS: Anion Gap 7 mmol/L (8-16); Blood Urea Nitrogen 15 mg/dL (9-20); CRP 24.7 mg/dL (<1.0); Calcium 8.8 mg/dL (8.4-10.2); Carbon Dioxide 25 mmol/L (22-30); Chloride 99 mmol/L (98-107); Estimated CRCL calculation 97 ml/min; Estimated Glomerular Filt Rate > 60; Glucose 102 mg/dL (75-110); Potassium 4.3 mmol/L (3.4-5.0); Sodium 131 mmol/L (137-145)
--- NOTE | 2019-10-07 07:24 | PC.NURSE ---
Rn walked in the room this morning to find the patient sitting with his finger placed in his rectum. Patient says that it makes it feel better
[2019-10-07] MEDS: ENOXAPARIN 40 MG/0.4 ML SYRINGE SUB-Q (08:09)
[2019-10-07] MEDS: amLODIPine BESYLATE 5 MG TABLET PO (08:09)
[2019-10-07] MEDS: FAMOTIDINE 20 MG/2 ML VIAL IV PUSH ×2 (08:09→21:52)
[2019-10-07] MEDS: DOCUSATE SODIUM 100 MG CAPSULE PO ×2 (08:09→21:52)
[2019-10-07] MEDS: guaiFENesin 12 HR 600 MG TABCR PO ×2 (08:09→21:52)
[2019-10-07] MEDS: ACETAMINOPHEN 325 MG TABLET 650 MG PO ×2 (08:16→17:44)
--- NOTE | 2019-10-07 12:18 | PM.IMPN ---
Progress Note: A&P Assessment and Plan (1) Pneumonia: Qualifiers: Laterality: bilateral Lung location: unspecified part of lung Pneumonia type: due to unspecified organism Qualified Code(s): J18.9 - Pneumonia, unspecified organism <Jolene CowanEsteban Clarke PA-C - Last Filed: 10/08/19 11:21> Code(s): J18.9 - Pneumonia, unspecified organism <Jolene Cagle AYSHA ClarkeC - Last Filed: 10/08/19 11:21> Status: Acute <Jolene AndrewsLORENA sanchez-C - Last Filed: 10/08/19 11:21> Assessment and Plan: CXR shows diffuse lung disease, likely pneumonia. Initial CXR, labs, and clinical picture were highly suggestive of COVID-19, however patient had 2 negative tests. His symptoms have been ongoing approximately 2 weeks. His O2 requirements remain at 7L high flow NC. CT showed diffuse groundglass opacities throughout bilateral lung jackman. Tmax 103.0. WBC 15.4. Continue IV rocephin and Azithromycin per ID recs Supportive care with supplemental O2, bronchodilators, incentive spirometer, cornet, mucinex, and acetaminophen as needed for fever. Monitor continuous pulse ox HIV screen drawn to evaluate for possible pneumonocystis pneumonia; found to be reactive Consult to infectious disease and recommendations are greatly appreciated. Sputum culture was inadequate for collection. Repeat sputum culture is pending. Aacid fast bacilli culture are pending. Urine pneumococcal antigen not detected. Fungal culture with Poonam albicans. Will obtain repeat chest x-ray. <Jolene CowanEsteban Clarke PA-C - Last Filed: 10/08/19 11:21> (2) Concern about sexually transmitted disease in male without diagnosis: Code(s): Z71.1 - Person with feared health complaint in whom no diagnosis is made <AYSHA BabbC - Last Filed: 10/08/19 11:21> Status: Acute <Jolene JEsteban Clarke PA-C - Last Filed: 10/08/19 11:21> Assessment and Plan: Reactive HIV screening 10/03. Patient has both receptive and penetrative sex with males. Approximately 8 months ago, he had protected sex using a condom with an HIV positive male who he reports had undetectable viral load. Reactive screening has been discussed with him. Check HIV RNA quantitative PCR, will await results. HIV 1 antibodies are positive. Infectious disease consulted Will proceed with testing for additional STDs including hepatitis, gonorrhea, chlamydia, HSV, and RPR for syphilis Hepatitis C was found to be reactive. Viral load pending. <Jolene CowanEsteban Clarke PA-C - Last Filed: 10/08/19 11:21> (3) Sinus tachycardia: Code(s): R00.0 - Tachycardia, unspecified <Jolene CowanEsteban Clarke PA-C - Last Filed: 10/08/19 11:21> Status: Acute <Jolene CowanEsteban DarrylBARBARA sanchez - Last Filed: 10/08/19 11:21> Assessment and Plan: Review of telemetry reveals sinus tachycardia. Likely multifactorial given fever, infection, and pain. PE is considered given tachypnea, SOB, and hypoxia. TSH is wnl. HR has increased today to the 130-140s. He is not orthostatic. No pulmonary embolism seen on CTA. Echo performed on 10/05 with EF >70%, no wall abnormality, severe concentric hypertrophy, and possible HOCM. Continue to monitor HR on telemetry Cardizem 30 mg PO q6 He will need repeat echo upon resolution of tachycardia to re-evaluate for HOCM per cardiology recs on echo <Jolene Clarke PA-C - Last Filed: 10/08/19 11:21> (4) Hypertension: Qualifiers: Hypertension type: essential hypertension Qualified Code(s): I10 - Essential (primary) hypertension <Jolene Clarke PA-C - Last Filed: 10/08/19 11:21> Code(s): I10 - Essential (primary) hypertension <Jolene Clarke PA-C - Last Filed: 10/08/19 11:21> Status: Acute <Jolene Clarke PA-C - Last Filed: 10/08/19 11:21> Assessment and Plan: Blood pressure has been quite elevated since admission. He received IV hydralazine and labetalol with lit
[2019-10-07] MEDS: MELATONIN 5 MG TABLET PO (21:52)
[2019-10-07] MEDS: LORazepam 0.5 MG TABLET PO (22:39)
[2019-10-08] VITALS (15 sets, daily range): BP systolic 133–160; BP diastolic 70–94; PULSE 105–144; RESP 20–24; TEMP 36.9–39.2; O2SAT 90–96
[2019-10-08] MEDS: dilTIAZem HCL 30 MG TABLET PO ×4 (00:16→19:01)
[2019-10-08] MEDS: IBUPROFEN 600 MG TABLET PO ×2 (05:40→15:30)
[2019-10-08 06:18] LABS: Basophils Percent Auto 0.2 % (0.2-1.2); Eosinophils Absolute Auto 0.1 K/mm3 (0-0.3); Eosinophils Percent Auto 0.5 % (0-4.4); Hematocrit 41.9 % (42.0-52.0); Hemoglobin 14.1 g/dL (14.0-18.0); Immature Granulocyte Absolute 0.28 K/mm3 (0.00-0.031); Immature Granulocyte Percent A 1.6 % (0-0.5); Lymphocytes Absolute Auto 0.86 K/mm3 (0.9-3.2); Mean Corpuscular HGB Conc 33.7 g/dl (32-36); Mean Corpuscular Hemoglobin 28.8 pg (26-34); Mean Corpuscular Volume 85.7 fl (80-100); Monocytes Absolute Auto 0.6 K/mm3 (0.1-0.6); Monocytes Percent Auto 3.4 % (2.6-8.5); Neutrophils Absolute Auto 15.4 K/mm3 (1.3-6.7); Neutrophils Percent Auto 89.3 % (45.5-73.1); Platelet Count Result 500 k/mm3 (150-375); Red Blood Count 4.89 M/mm3 (4.6-6.20); Red Cell Distribution Width 11.9 % (11.5-14.5); White Blood Count 17.3 K/mm3 (4.5-10.0)
[2019-10-08 06:31] LABS: Alanine Aminotransferase 20 U/L (4-50); Alkaline Phosphatase 86 U/L (38-126); Anion Gap 7 mmol/L (8-16); Aspartate Amino Transferase 42 U/L (17-59); Bilirubin,Total 0.2 mg/dL (0.2-1.3); Blood Urea Nitrogen 19 mg/dL (9-20); Calcium 8.9 mg/dL (8.4-10.2); Carbon Dioxide 27 mmol/L (22-30); Chloride 98 mmol/L (98-107); Estimated CRCL calculation 97 ml/min; Estimated Glomerular Filt Rate > 60; Glucose 109 mg/dL (75-110); Potassium 4.4 mmol/L (3.4-5.0); Sodium 132 mmol/L (137-145)
[2019-10-08] MEDS: LEVALBUTEROL HFA (*SP) 15 GM INHALER 2 PUFF INHALATION ×2 (08:08→21:20)
[2019-10-08] MEDS: amLODIPine BESYLATE 5 MG TABLET PO (09:02)
[2019-10-08] MEDS: ACETAMINOPHEN 325 MG TABLET 650 MG PO ×2 (09:02→19:00)
[2019-10-08] MEDS: guaiFENesin 12 HR 600 MG TABCR PO ×2 (09:02→20:16)
[2019-10-08] MEDS: DOCUSATE SODIUM 100 MG CAPSULE PO ×2 (09:02→20:16)
[2019-10-08] MEDS: FAMOTIDINE 20 MG/2 ML VIAL IV PUSH ×2 (09:06→20:16)
[2019-10-08] MEDS: ENOXAPARIN 40 MG/0.4 ML SYRINGE SUB-Q (09:06)
[2019-10-08 10:03] LABS: Rapid Plasma Reagin Non-Reactive (NonReactive)
--- NOTE | 2019-10-08 11:09 | PCNFU ---
Nutrition Follow-Up Complete: Inadequate Oral Intake as related to pneumonia as evidenced by poor po intake and weight loss of 23 ibs. Goal: Adequate Intake of at least 75% of meals/supplements Patient had met current goal. No new goal. Pt current nutrition is Regular. Nutrition recommendation: Agree Last recorded weight is 63.4 kg. Bowel Motility:+BM reported 10/04 Labs Reviewed:Na 132,Alb 3.0 Meds Noted:Lovenox, Pepcid Additional Notes:Patient seen today for nutrition follow up. Oral Intake has been good 75-100% of meals. Agree with regular diet orders. Patient also has diet supplements of Ensure Compact BID providing an additional 220 kcals and 9 gms protein. No further nutritional interventions needed. Monitoring: Will monitor every 7 days.
--- NOTE | 2019-10-08 11:21 | PM.IMPN ---
Progress Note: A&P Assessment and Plan (1) Pneumonia: Qualifiers: Laterality: bilateral Lung location: unspecified part of lung Pneumonia type: due to unspecified organism Qualified Code(s): J18.9 - Pneumonia, unspecified organism <Jolene Clarke PA-C - Last Filed: 10/08/19 17:04> Code(s): J18.9 - Pneumonia, unspecified organism <AYSHA BbabC - Last Filed: 10/08/19 17:04> Status: Acute <LORENA Babb-C - Last Filed: 10/08/19 17:04> Assessment and Plan: CXR shows diffuse lung disease, likely pneumonia. Initial CXR, labs, and clinical picture were highly suggestive of COVID-19, however patient had 2 negative tests. His symptoms had been ongoing approximately [address] showed diffuse groundglass opacities throughout bilateral lung jackman. HIV screen drawn to evaluate for possible pneumonocystis pneumonia; found to be reactive. Tmax 103.0. WBC increased to 17.3 today. Repeat CXR shows stable diffuse lung disease concerning for pneumocystis pneumonia. Will begin IV Bactrim 5 mg/kg q6h (TMP). Discussed with ID. Continue IV Rocephin and Azithromycin per ID recs Supportive care with supplemental O2, bronchodilators, incentive spirometer, cornet, mucinex, and acetaminophen as needed for fever. Monitor continuous pulse ox Consult to infectious disease and recommendations are greatly appreciated. Repeat preliminary sputum culture shows mixed bacterial kinsey. Acid fast bacilli culture are negative. Urine pneumococcal antigen not detected. Fungal culture with Poonam albicans. O2 requirements increased to 8L high flow. Will check ABG to ensure no CO2 retention. <Jolene Clarke PA-C - Last Filed: 10/08/19 17:04> (2) Concern about sexually transmitted disease in male without diagnosis: Code(s): Z71.1 - Person with feared health complaint in whom no diagnosis is made <Jolene Clarke PA-C - Last Filed: 10/08/19 17:04> Status: Acute <AYSHA BabbC - Last Filed: 10/08/19 17:04> Assessment and Plan: Reactive HIV screening 10/03. Patient has both receptive and penetrative sex with males. Approximately 8 months ago, he had protected sex using a condom with an HIV positive male who he reports had undetectable viral load. Reactive screening has been discussed with him. Check HIV RNA quantitative PCR, will await results. HIV 1 antibodies are positive. Infectious disease consulted he was evaluated for additional STDs. RPR nonreactive. HSV not detected. Will repeat gonorrhea and chlamydia testing as these were not collected for unknown reason. Hepatitis C was found to be reactive. Viral load pending. <Jolene Clarke PA-C - Last Filed: 10/08/19 17:04> (3) Sinus tachycardia: Code(s): R00.0 - Tachycardia, unspecified <Jolene Clarke PA-C - Last Filed: 10/08/19 17:04> Status: Acute <Jolene Clarke PA-C - Last Filed: 10/08/19 17:04> Assessment and Plan: Review of telemetry reveals sinus tachycardia. Likely multifactorial given fever, infection, and pain. TSH is wnl. He is not orthostatic. No pulmonary embolism seen on CTA. Echo performed on 10/05 with EF >70%, no wall abnormality, severe concentric hypertrophy, and possible HOCM. Continue to monitor HR on telemetry Cardizem 30 mg PO q6 He will need repeat echo upon resolution of tachycardia to re-evaluate for HOCM per cardiology recs on echo <Jolene Clarke PA-C - Last Filed: 10/08/19 17:04> (4) Hypertension: Qualifiers: Hypertension type: essential hypertension Qualified Code(s): I10 - Essential (primary) hypertension <Jolene Clarke PA-C - Last Filed: 10/08/19 17:04> Code(s): I10 - Essential (primary) hypertension <Jolene Clarke PA-C - Last Filed: 10/08/19 17:04> Status: Acute <Jolene Clarke PA-C - Last Filed: 10/08/19 17:04> Assessment and Plan:
[2019-10-08 12:19] LABS: Herpes Simplex Type 1 DNA PCR Not Detected (Not Detected); Herpes Simplex Type 2 DNA PCR Not Detected (Not Detected)
[2019-10-08 17:13] LABS: Base Excess ABG 2.7 mEq/l (+/-2.0); Fractional Inspired Oxygen 60 %; HCO3 ABG 25.9 mEq/l (22.0-26.0); Oxygen Content ABG 18.5 %vol (16.0-22.0); Oxygen Saturation ABG 95.3 % (95.0-100.0); Oxyhemoglobin 92.7 % THb (90.0-100.0); PCO2 ABG 35.7 mmHg (35.0-45.0); PO2 ABG 70.5 mmHg (80.0-100.0); PO2 FiO2 Ratio Arterial Blood 1.17 %; Total Hemoglobin 14.2 g/dL (12.0-18.0); pH ABG 7.479 (7.350-7.450)
[2019-10-08 17:17] LABS: Device HIGH FLOW NASAL CANN; Site Drawn LEFT BRACHIAL
[2019-10-08 20:18] LABS: Legionella pneumophila Ag Ur Not Detected (Not Detected)
[2019-10-08] MEDS: MELATONIN 5 MG TABLET PO (21:41)
[2019-10-09] VITALS (22 sets, daily range): BP systolic 128–154; BP diastolic 67–81; PULSE 102–139; RESP 18–34; TEMP 36.6–39.1; O2SAT 72–100
[2019-10-09] MEDS: dilTIAZem HCL 30 MG TABLET PO ×5 (00:14→22:52)
[2019-10-09] MEDS: LEVALBUTEROL HFA (*SP) 15 GM INHALER 2 PUFF INHALATION ×4 (02:15→20:41)
[2019-10-09] MEDS: IBUPROFEN 600 MG TABLET PO ×2 (06:12→22:04)
[2019-10-09 06:14] LABS: Basophils Absolute Auto 0.1 K/mm3 (0.0-0.1); Basophils Percent Auto 0.5 % (0.2-1.2); Eosinophils Absolute Auto 0.2 K/mm3 (0-0.3); Eosinophils Percent Auto 1.3 % (0-4.4); Hematocrit 40.6 % (42.0-52.0); Hemoglobin 13.8 g/dL (14.0-18.0); Immature Granulocyte Absolute 0.26 K/mm3 (0.00-0.031); Lymphocytes Absolute Auto 1.51 K/mm3 (0.9-3.2); Lymphocytes Percent Auto 11.5 % (18.3-44.2); Mean Corpuscular Hemoglobin 28.9 pg (26-34); Mean Corpuscular Volume 85.1 fl (80-100); Mean Platelet Volume 10.4 fl (7.4-10.4); Monocytes Absolute Auto 0.5 K/mm3 (0.1-0.6); Monocytes Percent Auto 3.9 % (2.6-8.5); Neutrophils Absolute Auto 10.6 K/mm3 (1.3-6.7); Neutrophils Percent Auto 80.8 % (45.5-73.1); Platelet Count Result 498 k/mm3 (150-375); Red Blood Count 4.77 M/mm3 (4.6-6.20); Red Cell Distribution Width 11.7 % (11.5-14.5); White Blood Count 13.1 K/mm3 (4.5-10.0)
[2019-10-09 06:33] LABS: Potassium 4.2 mmol/L (3.4-5.0)
[2019-10-09 07:19] LABS: Alanine Aminotransferase 19 U/L (4-50); Albumin Level 2.9 g/dL (3.5-5.1); Alkaline Phosphatase 83 U/L (38-126); Anion Gap 6 mmol/L (8-16); Aspartate Amino Transferase 48 U/L (17-59); Bilirubin,Total 0.1 mg/dL (0.2-1.3); Blood Urea Nitrogen 17 mg/dL (9-20); CRP 17.4 mg/dL (<1.0); Calcium 8.8 mg/dL (8.4-10.2); Carbon Dioxide 29 mmol/L (22-30); Chloride 95 mmol/L (98-107); Estimated CRCL calculation 86 ml/min; Estimated Glomerular Filt Rate > 60; Glucose 107 mg/dL (75-110); Sodium 130 mmol/L (137-145)
[2019-10-09] MEDS: guaiFENesin 12 HR 600 MG TABCR PO ×2 (08:23→22:05)
[2019-10-09] MEDS: FAMOTIDINE 20 MG/2 ML VIAL IV PUSH ×2 (08:23→22:05)
[2019-10-09] MEDS: amLODIPine BESYLATE 5 MG TABLET PO (08:23)
[2019-10-09] MEDS: DOCUSATE SODIUM 100 MG CAPSULE PO ×2 (08:23→22:05)
[2019-10-09] MEDS: ENOXAPARIN 40 MG/0.4 ML SYRINGE SUB-Q (08:24)
--- NOTE | 2019-10-09 09:23 | PM.IMPN ---
Progress Note: A&P Assessment and Plan (1) Pneumonia: Qualifiers: Laterality: bilateral Lung location: unspecified part of lung Pneumonia type: due to unspecified organism Qualified Code(s): J18.9 - Pneumonia, unspecified organism Code(s): J18.9 - Pneumonia, unspecified organism Status: Acute Assessment and Plan: CXR shows diffuse lung disease, likely pneumonia. Initial CXR, labs, and clinical picture were highly suggestive of COVID-19, however patient had 2 negative tests. His symptoms had been ongoing approximately [address] showed diffuse groundglass opacities throughout bilateral lung jackman. HIV screen drawn to evaluate for possible pneumonocystis pneumonia; found to be reactive. Tmax 103.0. WBC down to 13.1k today. Repeat CXR yesterday shows stable diffuse lung disease concerning for pneumocystis pneumonia. Will begin IV Bactrim 5 mg/kg q6h (TMP). Discussed with ID. Continue IV Rocephin and Azithromycin per ID recs Supportive care with supplemental O2, bronchodilators, incentive spirometer, cornet, mucinex, and acetaminophen as needed for fever. Monitor continuous pulse ox Consult to infectious disease and recommendations are greatly appreciated. Repeat preliminary sputum culture shows mixed bacterial kinsey. Acid fast bacilli culture are negative. Urine pneumococcal antigen not detected. Fungal culture with Poonam albicans. O2 requirements down to 7L high flow (2) Concern about sexually transmitted disease in male without diagnosis: Code(s): Z71.1 - Person with feared health complaint in whom no diagnosis is made Status: Acute Assessment and Plan: Reactive HIV screening 10/03. Patient has both receptive and penetrative sex with males. Approximately 8 months ago, he had protected sex using a condom with an HIV positive male who he reports had undetectable viral load. Reactive screening has been discussed with him. Check HIV RNA quantitative PCR, will await results. HIV 1 antibodies are positive. Infectious disease consulted He was evaluated for additional STDs. RPR nonreactive. HSV not detected. Will repeat gonorrhea and chlamydia testing pending Hepatitis C was found to be reactive. Viral load pending. (3) Sinus tachycardia: Code(s): R00.0 - Tachycardia, unspecified Status: Acute Assessment and Plan: Review of telemetry reveals sinus tachycardia, short run of vent bigeminy this morning, although asymptomatic. Likely multifactorial given fever, infection, and pain. TSH is wnl. He is not orthostatic. No pulmonary embolism seen on CTA. Echo performed on 10/05 with EF >70%, no wall abnormality, severe concentric hypertrophy, and possible HOCM. Continue to monitor HR on telemetry Cardizem 30 mg PO q6 He will need repeat echo upon resolution of tachycardia to re-evaluate for HOCM per cardiology recs on echo (4) Hypertension: Qualifiers: Hypertension type: essential hypertension Qualified Code(s): I10 - Essential (primary) hypertension Code(s): I10 - Essential (primary) hypertension Status: Acute Assessment and Plan: Blood pressure has been quite elevated since admission. He received IV hydralazine and labetalol with little improvement. He has no documented history of HTN but has not been evaluated in some time. BP seems to be improving with medication. He has had episodes of elevation which may correspond with episodes of pain; patient believes this is the case. Continue amlodipine, cardizem Continue prn hydralazine. Monitor blood pressures closely (5) Hemorrhoids: Qualifiers: Hemorrhoid type: unspecified Qualified Code(s): K64.9 - Unspecified hemorrhoids Code(s): K64.9 - Unspecified hemorrhoids Status: Acute Assessment
--- NOTE | 2019-10-09 13:33 | WPDINFPN2 ---
Progress Note: A&P Assessment and Plan (1) Concern about sexually transmitted disease in male without diagnosis: Code(s): Z71.1 - Person with feared health complaint in whom no diagnosis is made Status: Acute Assessment and Plan: 1. + HIV screen, not a confirmed diagnosis, no AIDS. 2. Hemorrhoids 3. CAP, on higher flow O2, no + micro. I personally reviewed his CXR: very overpenetrated film, thus I cannot make a reasonable comparison to prior film. I think his current Xray shoes no infiltrates, but I also note the radiologist interpretation. 4. Hep C Ab + REC Ctx #8, and azithro #5, also on empiric TMP-SMX IV #2, continue. His HIV viral load was mishandled, and it appears the entire order was canceled (should have been re-drawn without a new order). Will thus reorder. CD4 panel in process, especially since his total lymph count has dropped markedly. Await viral load confirmation for the Hep C. Per his wishes, I did not provide him a comprehensive update on the above, due to a visitor in the room. Subjective Date/time seen: 10/09/19 13:33 Interval history: more dyspneic Exam Narrative: Exam Narrative: afebrile Const: General: no acute distress Resp: Effort & Inspection: normal respiratory effort Auscultation: clear to auscultation bilaterally and diminished lung sounds Cardio: Rate: regular rate Rhythm: regular rhythm Heart sounds: no murmurs GI: Inspection: non-distended GI Palp: Yes Soft to palpation and No Tenderness to palpation present (GI) Skin: General skin exam: normal color and no rashes or lesions noted Objective Data Vital Signs Vital Signs: Vital Signs - 24 hr 10/08/19 14:00 10/08/19 15:17 10/08/19 19:40 Temperature 37.1 C Pulse Rate 130 H Respiratory Rate 24 H Blood Pressure 139/94 H Pulse Oximetry 91 91 91 10/08/19 20:00 10/08/19 21:21 10/08/19 22:00 Temperature 36.9 C Pulse Rate 113 H 105 H Respiratory Rate 22 H Blood Pressure 133/75 Pulse Oximetry 90 90 10/09/19 00:00 10/09/19 04:00 10/09/19 06:00 Temperature 38.6 C H Pulse Rate 102 H 116 H 139 H Respiratory Rate 20 Blood Pressure 147/80 H Pulse Oximetry 100 10/09/19 06:12 10/09/19 07:10 10/09/19 07:56 Temperature 38.6 C H 39.1 C H Pulse Rate 128 H Respiratory Rate 20 Blood Pressure Pulse Oximetry 92 10/09/19 08:00 10/09/19 10:47 10/09/19 12:00 Temperature 37.1 C Pulse Rate 128 H 109 H Respiratory Rate Blood Pressure Pulse Oximetry 92 Intake/Output Intake/Output: Intake & Output 10/06/19 10/07/19 10/08/19 10/09/19 23:59 23:59 23:59 23:59 Intake Total 2200 880 1959 1288 Output Total 800 1150 1050 400 Balance 1400 -270 909 888 Meds/Results Medications: Active Medications Generic Name Dose Route Start Last Admin Trade Name Freq PRN Reason Stop Dose Admin Acetaminophen 650 mg 10/03/19 08:41 10/08/19 19:00 Tylenol Tablet PO 650 mg Q4H PRN Administration Fever, pain 1-3, OR MINER Amlodipine Besylate 5 mg 10/03/19 13:20 10/09/19 08:23 Norvasc PO 5 mg QAM RASHAWN Administration Benzocaine 1 applic 10/03/19 01:09 10/03/19 01:15 [place] Hemorrhoidal Ointment TOPICAL 1 applic Q4H PRN Administration Rectal Pain Diltiazem HCl 30 mg 10/06/19 10:10 10/09/19 12:21 Cardizem Tab PO 30 mg Q6HR RASHAWN Administration Docusate Sodium 100 mg 10/03/19 21:00 10/09/19 08:23 Colace Capsule PO 100 mg Q12HR RASHAWN Administration Enoxaparin Sodium 40 mg 10/05/19 09:00 10/09/19 08:24 Lovenox SUB-Q 40 mg DAILY RASHAWN Administration Famotidine 20 mg 10/02/19 21:00 10/09/19 08:23 Pepcid Iv IV PUSH 20 mg Q12HR RASHAWN Administration Guaifenesin 600 mg 10/03/19 09:00 10/09/19 08:23 Mucinex 12 Hr Tab PO 600 mg Q12HR RASHAWN Administration Hydralazine HCl 10 mg 10/03/19 19:41 10/07/19 04:44 Apresoline Hcl Inj IV PUSH 10 mg Q8H PRN Administration SBP >160 or DBP >105
--- NOTE | 2019-10-09 17:55 | PC.NURSE ---
Pt has been encouraged multiple times in the last two days I have had him as a pt, to sit up, get out of bed, and try to do tasks for himself. Pt refuses to sit up in a chair or even on the side of the bed. Pt does not try to help himself complete daily tasks.
[2019-10-09 20:52] LABS: Alveolar/Arterial O2 Gradient 614.8 mmHg; Base Excess ABG 0.9 mEq/l (+/-2.0); Fractional Inspired Oxygen 100 %; HCO3 ABG 23.3 mEq/l (22.0-26.0); Oxygen Content ABG 17.7 %vol (16.0-22.0); Oxygen Saturation ABG 95.1 % (95.0-100.0); Oxyhemoglobin 91.6 % THb (90.0-100.0); PCO2 ABG 30.7 mmHg (35.0-45.0); PO2 ABG 67.5 mmHg (80.0-100.0); PO2 FiO2 Ratio Arterial Blood 0.68 %; Total Hemoglobin 13.7 g/dL (12.0-18.0); pH ABG 7.498 (7.350-7.450)
[2019-10-09 20:53] LABS: Device NON-REBREATHER MASK; Modified Allen's Test Pass; Site Drawn LEFT RADIAL
--- NOTE | 2019-10-09 21:12 | PC.NURSE ---
2034 pt's spo2 dropped to 71% on 8l hi flow o2, increased to 10 liters and notified RT. RT to bedside placed pt on nonrebreather and gave neb treatment, RRR called team arrives, abgs ordered and sent. pt is alert, calm, and cooperative. lung sounds are clear and diminished throughout. no cough present, states i just felt like i couldn't breathe . pt feels better now and plan to move to IMU once abg results back.
--- NOTE | 2019-10-09 21:31 | PM.CCN ---
Critical Care Event Note Summary Code activated: No Narrative: 10/09/2019 at 8:40 p.m. Subjective: a rapid response was called as patient was desatting to the mid to low 70s on 7 L high-flow nasal cannula. The patient's high-flow nasal cannula was increased to 10 L and his oxygen saturations still remained in the upper 70s. Patient was switched to a non-rebreather with improvement in his oxygen saturations to the low 90s. GENERAL: Thin body habitus, acutely ill-appearing HEENT: normocephalic atraumatic, pupils are equal and reactive, mucous membranes are tacky CARDIOVASCULAR: sinus tachycardia with heart rates in the 130s, 2+ radial and pedal pulses RESPIRATORY: mild tachypnea, no accessory muscle use, clear to auscultation bilaterally ABDOMEN: soft, nontender, positive bowel sounds INTEGUMENT: no jaundice, no pallor, normal temperature NEUROLOGIC: alert oriented, speech is clear, no facial asymmetry PSYCHIATRIC: appropriate mood and affect, anxious, judgment and insight intact EXTREMITIES: no clubbing, cyanosis or edema 10/08/19 10/09/19 17:06 20:48 Puncture Site Left brachial Left radial ABG pH 7.479 H 7.498 H ABG pCO2 35.7 30.7 L ABG pO2 70.5 L 67.5 L ABG PO2/FiO2 Ratio 1.17 0.68 ABG HCO3 25.9 23.3 ABG O2 Saturation 95.3 95.1 ABG O2 Content 18.5 17.7 ABG Base Excess 2.7 0.9 A-a Gradient 318.0 614.8 Oxyhemoglobin 92.7 91.6 Total Hemoglobin 14.2 13.7 O2 Delivery Device High flow nasal soraya Non-rebreather mask O2 Liters/Min 7.0 15.0 FiO2 60 100 Assessment and plan: 1. 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 The patient now satting 93% on non-rebreather. ABG correlates with the patient's clinical condition. given the patient's continuing deterioration and increasing oxygen demand the patient will be transferred to IMU for closer monitoring. Orders for BiPAP 10/5 have been provided as needed the patient needs more support than non-rebreather. 30 minutes spent in critical care activities. This case had a high probability of a clinically significant, sudden, or life threatening deterioration of this patient's condition which required my full and direct attention, intervention and personal management. Critical care time: 30 - 74 mins
[2019-10-09] MEDS: MELATONIN 5 MG TABLET PO (22:05)
[2019-10-09] MEDS: SODIUM CHLORIDE NASAL GEL 14.1 GM 1 APPLIC NASAL (22:06)
--- NOTE | 2019-10-09 22:22 | PC.NURSE ---
2100 bed assigned [id number], [id number] gave report to meme grover IMU
[2019-10-10] VITALS (18 sets, daily range): BP systolic 125–148; BP diastolic 71–93; PULSE 102–124; RESP 20–26; TEMP 36.4–38.6; O2SAT 94–100
[2019-10-10] MEDS: LEVALBUTEROL HFA (*SP) 15 GM INHALER 2 PUFF INHALATION ×4 (02:42→21:04)
[2019-10-10 04:55] LABS: Basophils Percent Auto 0.3 % (0.2-1.2); Eosinophils Absolute Auto 0.1 K/mm3 (0-0.3); Eosinophils Percent Auto 0.8 % (0-4.4); Hematocrit 36.3 % (42.0-52.0); Hemoglobin 12.8 g/dL (14.0-18.0); Immature Granulocyte Absolute 0.23 K/mm3 (0.00-0.031); Lymphocytes Absolute Auto 1.09 K/mm3 (0.9-3.2); Lymphocytes Percent Auto 9.4 % (18.3-44.2); Mean Corpuscular HGB Conc 35.3 g/dl (32-36); Mean Corpuscular Hemoglobin 29.3 pg (26-34); Mean Corpuscular Volume 83.1 fl (80-100); Mean Platelet Volume 9.9 fl (7.4-10.4); Monocytes Absolute Auto 0.4 K/mm3 (0.1-0.6); Monocytes Percent Auto 3.8 % (2.6-8.5); Neutrophils Absolute Auto 9.7 K/mm3 (1.3-6.7); Neutrophils Percent Auto 83.7 % (45.5-73.1); Platelet Count Result 461 k/mm3 (150-375); Red Blood Count 4.37 M/mm3 (4.6-6.20); Red Cell Distribution Width 11.4 % (11.5-14.5); White Blood Count 11.6 K/mm3 (4.5-10.0)
[2019-10-10 05:21] LABS: Alanine Aminotransferase 21 U/L (4-50); Albumin Level 2.7 g/dL (3.5-5.1); Alkaline Phosphatase 76 U/L (38-126); Anion Gap 8 mmol/L (8-16); Aspartate Amino Transferase 60 U/L (17-59); Bilirubin,Total < 0.1 mg/dL (0.2-1.3); Blood Urea Nitrogen 16 mg/dL (9-20); CRP 12.7 mg/dL (<1.0); Calcium 8.3 mg/dL (8.4-10.2); Carbon Dioxide 26 mmol/L (22-30); Chloride 94 mmol/L (98-107); Estimated CRCL calculation 70 ml/min; Estimated Glomerular Filt Rate > 60; Glucose 103 mg/dL (75-110); Magnesium 1.8 mg/dL (1.6-2.3); Potassium 3.9 mmol/L (3.4-5.0); Sodium 128 mmol/L (137-145)
[2019-10-10] MEDS: dilTIAZem HCL 30 MG TABLET PO ×4 (05:24→23:30)
--- NOTE | 2019-10-10 10:31 | PM.IMPN ---
Progress Note: A&P Assessment and Plan (1) Pneumonia: Qualifiers: Laterality: bilateral Lung location: unspecified part of lung Pneumonia type: due to unspecified organism Qualified Code(s): J18.9 - Pneumonia, unspecified organism Code(s): J18.9 - Pneumonia, unspecified organism Status: Acute Assessment and Plan: Initial CXR shows diffuse lung disease, likely pneumonia. Initial CXR, labs, and clinical picture were highly suggestive of COVID-19, however patient had 2 negative tests. His symptoms had been ongoing approximately [address] showed diffuse groundglass opacities throughout bilateral lung jackman. HIV screen drawn to evaluate for possible pneumonocystis pneumonia; found to be reactive. Tmax 103.0. WBC down to 11.6k today. Afebrile since morning of 10/08. Repeat CXR 10/07 shows stable diffuse lung disease concerning for pneumocystis pneumonia. Continue IV Bactrim 5 mg/kg q6h (TMP), Rocephin, and azithromycin per ID recs. Supportive care with supplemental O2, bronchodilators, incentive spirometer, cornet, mucinex, and acetaminophen as needed for fever. Monitor continuous pulse ox Consult to infectious disease and recommendations are greatly appreciated. Consult to Pulmonology obtained yesterday for evaluation of possible bronchoscopy. Rec greatly appreciated Repeat preliminary sputum culture shows mixed bacterial kinsey. Acid fast bacilli culture are negative. Urine pneumococcal antigen not detected. Fungal culture with Poonam albicans. O2 requirements increased to 14 L nonrebreather; 15L overnight Await further rec from Pulmonology and ID (2) Concern about sexually transmitted disease in male without diagnosis: Code(s): Z71.1 - Person with feared health complaint in whom no diagnosis is made Status: Acute Assessment and Plan: Reactive HIV screening 10/03. Patient has both receptive and penetrative sex with males. Approximately 8 months ago, he had protected sex using a condom with an HIV positive male who he reports had undetectable viral load. Reactive screening has been discussed with him. Check HIV RNA quantitative PCR, will await results. HIV 1 antibodies are positive. Infectious disease consulted He was evaluated for additional STDs. RPR nonreactive. HSV not detected. Will repeat gonorrhea and chlamydia testing pending Hepatitis C was found to be reactive. Viral load pending. (3) Sinus tachycardia: Code(s): R00.0 - Tachycardia, unspecified Status: Acute Assessment and Plan: Review of telemetry reveals sinus tachycardia, short run of vent bigeminy this morning, although asymptomatic. Likely multifactorial given fever, infection, and pain. TSH is wnl. He is not orthostatic. No pulmonary embolism seen on CTA. Echo performed on 10/05 with EF >70%, no wall abnormality, severe concentric hypertrophy, and possible HOCM. Continue to monitor HR on telemetry Cardizem 30 mg PO q6 He will need repeat echo upon resolution of tachycardia to re-evaluate for HOCM per cardiology recs on echo (4) Hypertension: Qualifiers: Hypertension type: essential hypertension Qualified Code(s): I10 - Essential (primary) hypertension Code(s): I10 - Essential (primary) hypertension Status: Acute Assessment and Plan: Blood pressure has been quite elevated since admission. He received IV hydralazine and labetalol with little improvement. He has no documented history of HTN but has not been evaluated in some time. BP seems to be improving with medication. He has had episodes of elevation which may correspond with episodes of pain; patient believes this is the case. Continue amlodipine, cardizem Continue prn hydralazine. Monitor blood pressures closely (5) Hemorrhoids: Qualifier
[2019-10-10] MEDS: guaiFENesin 12 HR 600 MG TABCR PO ×2 (11:44→20:38)
[2019-10-10] MEDS: amLODIPine BESYLATE 5 MG TABLET PO (11:44)
[2019-10-10] MEDS: DOCUSATE SODIUM 100 MG CAPSULE PO ×2 (11:44→20:38)
[2019-10-10] MEDS: FAMOTIDINE 20 MG/2 ML VIAL IV PUSH ×2 (11:45→20:38)
[2019-10-10] MEDS: ENOXAPARIN 40 MG/0.4 ML SYRINGE SUB-Q (11:45)
[2019-10-10] MEDS: WITCH HAZEL 40 PADS 1 PAD TOPICAL (11:45)
[2019-10-10] MEDS: IBUPROFEN 600 MG TABLET PO ×2 (11:47→20:39)
[2019-10-10] MEDS: ACETAMINOPHEN 325 MG TABLET 650 MG PO ×2 (13:09→20:39)
--- NOTE | 2019-10-10 13:37 | PM.CNPUL ---
Assessment and Plan Assessment and plan (1) Pneumonia: Qualifiers: Laterality: bilateral Lung location: unspecified part of lung Pneumonia type: due to unspecified organism Qualified Code(s): J18.9 - Pneumonia, unspecified organism Code(s): J18.9 - Pneumonia, unspecified organism Status: Acute Assessment and Plan: This patient has HIV (+) antibody and pneumonia, being treated with ceftriaxone, azithromycin and sulfamethoxazole for the usual CAP microbes and Pneumocystis jirovecii; he is need ing increased amount of O2, now with a higher A-a gradient overnight. He is able to tolerate being prone with saturation 97% on his stomach. He may benefit by positional therapy to improve V/Q matching, continuing antibiotics. We discussed bronchoscopy. At this point, if he has a bronch, his saturation will likely decrease enough that he might require a short period of vent support due to the usual hypoxemia that is involved with using saline for the lavage. He does not want to take this chance, and does not want to have a bronch at this point. I agree with him. If he worsens and gets intubated, he will already be on a vent, and proceeding with a bronch would not add to his problems. I will continue to follow with you; thanks. Positional therapy does seem to work, and I recommended that he spens 2 hours prone and 1 hour supine or head up; this may improve oxygenation and avoid need for intubation. d/w LORENA Pierre History of Present Illness History of Present Illness Consult date: 10/10/19 Requesting physician: Hever Mohan PA-C Reason for consult: abnormal CXR/CT (pneumonia) Chief complaint: pneumonia,hyoxemia Narrative: NEW: Hever CARRILLO consulted me to see this 44 yo man with HIV with worsening pneumonia, suspected Pneumocystis pneumonia. He worsened last night, was moved from Room 312 to IMU 231.He is now on 100% NRM, sat is 97%. he was just diagnosed with HIV this admission, had sex with condom failure 4 months ago, and had sex 8 months before that. He has had increasing shortness of breath x 3 weeks, increased coughing, and on the day of admission, increased shortness of breath. He does not have sputum. Has had 2 negative COVID tests. CXR has diffuse infiltrates. WBC is high today 11.6, has been as high as 17.3K; high CRP 24.7; increased D-dimer 0.58, A-a gradient increased to 614 overnight, now on 100% with pO2 in the 60s. Had childhood asthma. Not smoking now, quit. No vaping. no history of recurrent infections. Review of Systems Review of Systems: All systems reviewed & are unremarkable except as noted in HPI and below (HPI. weight loss 11 lb in 2 months. ) Eyes: Eyes: Reports no additional eye complaints ENT: Comments: no problems swallowing; Cardiovascular: Cardiovascular: Denies chest pain and Denies pedal edema Respiratory: Respiratory: Reports cough, Denies hemoptysis and Reports dyspnea Gastrointestinal: Gastrointestinal: Denies change in bowel habits, Denies dysphagia and Denies vomiting Genitourinary: Genitourinary: Denies genital pain [facility] Past Medical History Medical History (Updated 10/10/19 @ 14:53 by Corry Antoine MD) Healthy adult male Hemorrhoids Unspecified asthma in childhood Family History Family History (Updated 10/10/19 @ 14:56 by Corry Antoine MD) Mother COVID-19 Carcinoma of colon Breast cancer Father , Oct 05, 2019 at [facility] an hour after intubation, age 68 COVID-19 Sibling Diabetes mellitus Hypertension Social History Social History (Updated 10/10/19 @ 14:55 by Corry Antoine MD) Social History: Mr. Ramos lives in an apartment with his aunt. 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 He designates his mom, Zeina, as his surrogate decision maker. He would like to be a full code. Years smoked: 4 Smoking status: Former smoker Tobacco type: cigars Smoking end date: 09/18/19 Additional smoking assessment co
--- NOTE | 2019-10-10 13:38 | WPDINFPN2 ---
Progress Note: A&P Assessment and Plan (1) Concern about sexually transmitted disease in male without diagnosis: Code(s): Z71.1 - Person with feared health complaint in whom no diagnosis is made Status: Acute Assessment and Plan: 1. + HIV screen, not a confirmed diagnosis, no AIDS. Total lymph count back to to 1090 2. Hemorrhoids 3. CAP, on higher flow O2, no + micro. 4. Hep C Ab + REC Ctx #9, and azithro #6, also on empiric TMP-SMX IV #3, continue. Await viral load and CD4 panel. Await viral load confirmation for the Hep C. Dr. Antoine to see and if she agrees then micro sampling via bronchoscopy would be very helpful (routine fungal afb silver stain histopath) Subjective Date/time seen: 10/10/19 13:38 Interval history: dyspnea, no sputum Exam Narrative: Exam Narrative: t max 38.6 Const: General: no acute distress Neck: Neck: supple Resp: Effort & Inspection: normal respiratory effort Auscultation: rales and no wheezes Cardio: Rate: tachycardic Rhythm: regular rhythm Heart sounds: no murmurs GI: Inspection: non-distended GI Palp: Yes Soft to palpation, No Tenderness to palpation present (GI) and No Guarding due to palpation present (GI) Objective Data Vital Signs Vital Signs: Vital Signs - 24 hr 10/09/19 14:00 10/09/19 14:11 10/09/19 16:00 Temperature 37.0 C Pulse Rate 112 H 107 H 117 H Respiratory Rate 18 20 Blood Pressure 128/70 Pulse Oximetry 91 10/09/19 17:46 10/09/19 20:00 10/09/19 20:30 Temperature 36.9 C Pulse Rate 130 H Respiratory Rate 26 H Blood Pressure 133/81 Pulse Oximetry 85 L 72 L 72 L 10/09/19 20:43 10/09/19 20:44 10/09/19 20:45 Temperature 36.6 C Pulse Rate 128 H 105 H Respiratory Rate 34 H 24 H Blood Pressure 148/77 H Pulse Oximetry 94 97 10/09/19 20:50 10/09/19 22:00 10/09/19 22:45 Temperature 36.9 C 37.0 C Pulse Rate 130 H 131 H Respiratory Rate 25 H 24 H Blood Pressure 154/80 H 149/67 H Pulse Oximetry 94 96 98 10/09/19 23:17 10/10/19 00:00 10/10/19 02:00 Temperature Pulse Rate 131 H 112 H 103 H Respiratory Rate 22 H Blood Pressure Pulse Oximetry 98 10/10/19 02:44 10/10/19 04:00 10/10/19 06:00 Temperature 36.6 C Pulse Rate 104 H 102 H 105 H Respiratory Rate 24 H Blood Pressure 148/77 H Pulse Oximetry 96 97 10/10/19 08:00 10/10/19 09:27 10/10/19 12:00 Temperature 36.4 C L 38.6 C H Pulse Rate 106 H 104 H 122 H Respiratory Rate 22 H 26 H Blood Pressure 128/75 144/93 H Pulse Oximetry 95 96 94 10/10/19 13:09 Temperature 38.6 C H Pulse Rate Respiratory Rate Blood Pressure Pulse Oximetry Intake/Output Intake/Output: Intake & Output 10/07/19 10/08/19 10/09/19 10/10/19 23:59 23:59 23:59 23:59 Intake Total 880 1959 3076 1288 Output Total 1150 1050 1400 525 Balance -891 828 3090 763 Meds/Results Medications: Active Medications Generic Name Dose Route Start Last Admin Trade Name Freq PRN Reason Stop Dose Admin Acetaminophen 650 mg 10/03/19 08:41 10/10/19 13:09 Tylenol Tablet PO 650 mg Q4H PRN Administration Fever, pain 1-3, OR MINER Amlodipine Besylate 5 mg 10/03/19 13:20 10/10/19 11:44 Norvasc PO 5 mg QAM RASHAWN Administration Benzocaine 1 applic 10/03/19 01:09 10/03/19 01:15 Americaine Hemorrhoidal Ointment TOPICAL 1 applic Q4H PRN Administration Rectal Pain Diltiazem HCl 30 mg 10/06/19 10:10 10/10/19 11:44 Cardizem Tab PO 30 mg Q6HR RASHAWN Administration Docusate Sodium 100 mg 10/03/19 21:00 10/10/19 11:44 Colace Capsule PO 100 mg Q12HR RASHAWN Administration Enoxaparin Sodium 40 mg 10/05/19 09:00 10/10/19 11:45 Lovenox SUB-Q 40 mg DAILY RASHAWN Administration Famotidine 20 mg 10/02/19 21:00 10/10/19 11:45 Pepcid Iv IV PUSH 20 mg Q12HR RASHAWN Administration Guaifenesin 600 mg 10/03/19 09:00 10/10/19 11:44 Mucinex 12 Hr Tab PO 600 mg Q12HR RASHAWN Administration Hydralaz
[2019-10-10] MEDS: MELATONIN 5 MG TABLET PO (20:38)
[2019-10-10] MEDS: SODIUM CHLORIDE NASAL GEL 14.1 GM 1 APPLIC NASAL (20:41)
[2019-10-10 22:46] LABS: Absolute CD4 Count 120 cells/uL (490-1740); Lymphocytes, Absolute 769 cells/uL (850-3900); Percent CD4 Cells 16 % (30-61)
[2019-10-11] VITALS (23 sets, daily range): BP systolic 124–167; BP diastolic 64–81; PULSE 100–148; RESP 18–22; TEMP 36.1–37.6; O2SAT 86–99
[2019-10-11] MEDS: ONDANSETRON INJ 4 MG/2 ML VIAL IV PUSH ×2 (00:48→21:28)
[2019-10-11] MEDS: LEVALBUTEROL HFA (*SP) 15 GM INHALER 2 PUFF INHALATION ×4 (02:37→21:22)
[2019-10-11] MEDS: dilTIAZem HCL 30 MG TABLET PO ×2 (05:08→12:53)
[2019-10-11 05:13] LABS: Basophils Percent Auto 0.3 % (0.2-1.2); Eosinophils Absolute Auto 0.1 K/mm3 (0-0.3); Eosinophils Percent Auto 0.7 % (0-4.4); Hematocrit 35.6 % (42.0-52.0); Hemoglobin 12.5 g/dL (14.0-18.0); Immature Granulocyte Absolute 0.27 K/mm3 (0.00-0.031); Immature Granulocyte Percent A 1.8 % (0-0.5); Lymphocytes Absolute Auto 0.98 K/mm3 (0.9-3.2); Lymphocytes Percent Auto 6.6 % (18.3-44.2); Mean Corpuscular HGB Conc 35.1 g/dl (32-36); Mean Corpuscular Hemoglobin 28.9 pg (26-34); Mean Corpuscular Volume 82.2 fl (80-100); Mean Platelet Volume 9.8 fl (7.4-10.4); Monocytes Absolute Auto 0.3 K/mm3 (0.1-0.6); Monocytes Percent Auto 2.2 % (2.6-8.5); Neutrophils Absolute Auto 13.1 K/mm3 (1.3-6.7); Neutrophils Percent Auto 88.4 % (45.5-73.1); Platelet Count Result 507 k/mm3 (150-375); Red Blood Count 4.33 M/mm3 (4.6-6.20); Red Cell Distribution Width 11.3 % (11.5-14.5); White Blood Count 14.8 K/mm3 (4.5-10.0)
[2019-10-11 05:25] LABS: Potassium 4.6 mmol/L (3.4-5.0)
[2019-10-11 05:31] LABS: Alanine Aminotransferase 22 U/L (4-50); Albumin Level 2.7 g/dL (3.5-5.1); Alkaline Phosphatase 93 U/L (38-126); Anion Gap 7 mmol/L (8-16); Aspartate Amino Transferase 65 U/L (17-59); Bilirubin,Total < 0.1 mg/dL (0.2-1.3); Blood Urea Nitrogen 13 mg/dL (9-20); Calcium 8.7 mg/dL (8.4-10.2); Carbon Dioxide 27 mmol/L (22-30); Chloride 92 mmol/L (98-107); Estimated CRCL calculation 86 ml/min; Estimated Glomerular Filt Rate > 60; Glucose 99 mg/dL (75-110); Magnesium 1.9 mg/dL (1.6-2.3); Sodium 126 mmol/L (137-145)
[2019-10-11 05:41] LABS: CRP 17.8 mg/dL (<1.0)
--- NOTE | 2019-10-11 08:45 | PM.IMPN ---
Progress Note: A&P Assessment and Plan (1) Pneumonia: Qualifiers: Laterality: bilateral Lung location: unspecified part of lung Pneumonia type: due to unspecified organism Qualified Code(s): J18.9 - Pneumonia, unspecified organism Code(s): J18.9 - Pneumonia, unspecified organism Status: Acute Assessment and Plan: Initial CXR shows diffuse lung disease, likely pneumonia. Initial CXR, labs, and clinical picture were highly suggestive of COVID-19, however patient had 2 negative tests. His symptoms had been ongoing approximately [address] showed diffuse groundglass opacities throughout bilateral lung jackman. HIV screen drawn to evaluate for possible pneumonocystis pneumonia; found to be reactive. Tmax 103.0. WBC down to 14.8k today. Fever yesterday afternoon, afebrile since then. Repeat CXR 10/07 shows stable diffuse lung disease concerning for pneumocystis pneumonia. Continue IV Bactrim 5 mg/kg q6h (TMP), Rocephin, and azithromycin per ID recs. Supportive care with supplemental O2, bronchodilators, incentive spirometer, cornet, mucinex, and acetaminophen as needed for fever. Monitor continuous pulse ox Consult to infectious disease and recommendations are greatly appreciated. Pulmonology consulted and appreciate recommendations Will continue to have patient prone as tolerated during the day per Pulm recs Repeat preliminary sputum culture shows mixed bacterial kinsey. Acid fast bacilli culture are negative. Urine pneumococcal antigen not detected. Fungal culture with Poonam albicans Await further rec from Pulmonology and ID (2) Concern about sexually transmitted disease in male without diagnosis: Code(s): Z71.1 - Person with feared health complaint in whom no diagnosis is made Status: Acute Assessment and Plan: Reactive HIV screening 10/03. Patient has both receptive and penetrative sex with males. Approximately 8 months ago, he had protected sex using a condom with an HIV positive male who he reports had undetectable viral load. Reactive screening has been discussed with him. CD4 absolute is 120 today. Check HIV RNA quantitative PCR, will await results. HIV 1 antibodies are positive. Infectious disease consulted He was evaluated for additional STDs. RPR nonreactive. HSV not detected. Will repeat gonorrhea and chlamydia testing pending Hepatitis C was found to be reactive. Viral load pending. (3) Sinus tachycardia: Code(s): R00.0 - Tachycardia, unspecified Status: Acute Assessment and Plan: Review of telemetry reveals sinus tachycardia, no alarms overnight; asymptomatic. Likely multifactorial given fever, infection, and pain. TSH is wnl. He is not orthostatic. No pulmonary embolism seen on CTA. Echo performed on 10/05 with EF >70%, no wall abnormality, severe concentric hypertrophy, and possible HOCM. Continue to monitor HR on telemetry Cardizem 30 mg PO q6 He will need repeat echo upon resolution of tachycardia to re-evaluate for HOCM per cardiology recs on echo (4) Hypertension: Qualifiers: Hypertension type: essential hypertension Qualified Code(s): I10 - Essential (primary) hypertension Code(s): I10 - Essential (primary) hypertension Status: Acute Assessment and Plan: Blood pressure more reasonable past 24 hours. He received IV hydralazine and labetalol with little improvement in ER. He has no documented history of HTN but has not been evaluated in some time. BP seems to be improving with medication. He has had episodes of elevation which may correspond with episodes of pain; patient believes this is the case. Continue amlodipine, cardizem Continue prn hydralazine. Monitor blood pressures closely (5) Hemorrhoids: Qualifiers: Hemorrhoid type:
[2019-10-11] MEDS: DOCUSATE SODIUM 100 MG CAPSULE PO ×2 (09:54→23:51)
[2019-10-11] MEDS: guaiFENesin 12 HR 600 MG TABCR PO ×2 (09:54→23:51)
[2019-10-11] MEDS: FAMOTIDINE 20 MG/2 ML VIAL IV PUSH ×2 (09:54→21:27)
[2019-10-11] MEDS: ENOXAPARIN 40 MG/0.4 ML SYRINGE SUB-Q (09:54)
[2019-10-11] MEDS: SODIUM CHLORIDE 0.9% IV 1,000 ML 75 ML IV CONT (09:54)
[2019-10-11] MEDS: amLODIPine BESYLATE 5 MG TABLET PO (09:54)
[2019-10-11] MEDS: IBUPROFEN 600 MG TABLET PO (12:53)
[2019-10-11] MEDS: hydrALAZINE HCL 20 MG/ML VIAL 10 MG IV PUSH ×2 (12:55→23:56)
[2019-10-11] MEDS: BENZOCAINE 20% HEMORRHOIDAL OINTMENT 28 GM 1 APPLIC TOPICAL (12:55)
[2019-10-11] MEDS: LIDOCAINE HCL 2% JELLY 30 ML TUBE 1 APPLIC MUCOUS MEM (12:57)
[2019-10-11] MEDS: WITCH HAZEL 40 PADS 1 PAD TOPICAL (12:58)
[2019-10-11] MEDS: dilTIAZem HCL 60 MG TABLET PO ×2 (18:35→23:51)
[2019-10-11] MEDS: MELATONIN 5 MG TABLET PO (22:26)
[2019-10-12] VITALS (48 sets, daily range): BP systolic 70–213; BP diastolic 43–123; PULSE 70–165; RESP 13–42; TEMP 35.9–40.4; O2SAT 80–100; BMI 24.0
--- NOTE | 2019-10-12 00:51 | PM.EVENT ---
Event Note Event Note Event Note: RAPID RESPONSE NOTE This is a 44 year old male who is being treated for pneumonia who tonight suddenly desaturated down to the 70s. Rapid response was called and on my arrival to bedside the patient was placed on Bipap by respiratory therapist. The patient complains of shortness of breath. Auscultation demonstrated good breath sounds bilaterally with coarse rales+. The patient was given 0.5 mg IV Ativan for anxiety as he was breathing >40 rpm and appeared very anxious. He verbalized to the nursing staff that he does not want to be intubated and placed on mechanical ventilation under any circumstances. He confirmed this with me. The patient's oxgyen saturations came up to 93% on Bipap with an FiO2 of 100%, 15/8 settings. Approximately 45 minutes later the patient alerted the nurses that he felt very short of breath. On my encounter with the patient he decided that he now wants to be intubated and placed on mechanical ventilation. The patient's respiratory rate is now in the 50s and he appears fatigued. We will transfer the patient to the ICU and prepare for emergent rapid sequence intubation and mechanical ventilation. I will consult out Metallurgical Specialist, Dr. Caruso. Total Critical Care time overnight exceeded 32 minutes.
[2019-10-12 01:43] LABS: Alveolar/Arterial O2 Gradient 621.1 mmHg; Base Excess ABG -2.1 mEq/l (+/-2.0); Device NON-INVASIVE VENT; Fractional Inspired Oxygen 100 %; HCO3 ABG 21.8 mEq/l (22.0-26.0); Modified Allen's Test Pass; Oxygen Content ABG 17.2 %vol (16.0-22.0); Oxygen Saturation ABG 90.4 % (95.0-100.0); Oxyhemoglobin 87.3 % THb (90.0-100.0); PCO2 ABG 34.7 mmHg (35.0-45.0); PO2 ABG 57.2 mmHg (80.0-100.0); PO2 FiO2 Ratio Arterial Blood 0.57 %; Site Drawn LEFT RADIAL; pH ABG 7.416 (7.350-7.450)
[2019-10-12 01:44] LABS: Non-Invasive Expiratory Pressure 8 CMH2O; Non-Invasive Inspiratory Pressure 15 CMH2O; Non-Invasive Vent Rate 4 /MIN
--- NOTE | 2019-10-12 03:01 | ADMIMU ---
10/12/19 0230 -This patient, Kirt Ramos, was transferred to ICU-12 Patient/family oriented to hospital policies and general routines including ID bracelet, bed and alarms, visiting hours, pain management, procedures, bathroom and other care routines, personal items, smoking policy, room service/diet, and visiting hours. Valuables list has been completed. Report given to MELODIE Nunez. Information on how to activate the Rapid Response Team has been discussed. Patient/Family are encouraged to report perceived risks to care and to ask questions if they do not understand what they are told or what they should do. 10/12/19 0245-Pt's brother, Kyung called and updated with the Pt's condition and the need for ICU transfer for intubation.
[2019-10-12] MEDS: ROCURONIUM BROMIDE 50 MG/5 ML VIAL 30 MG IV PUSH (03:07)
[2019-10-12] MEDS: MIDAZOLAM HCL 2 MG/2 ML VIAL IV PUSH ×2 (03:07→13:24)
[2019-10-12] MEDS: PROPOFOL IV EMULSION 100 ML 1.9 MG IV CONT (03:10)
--- NOTE | 2019-10-12 03:44 | WPDPROCEDUR ---
Procedures Intubation Intubation Date: 10/12/19 Intubation Time: 02:15 A pre-procedural Time-Out was completed immediately before starting the procedure and confirmed: Patient Identification, Site, Procedure, Patient Position and the Availability of Requisite Equipment: Yes Sedative: etomidate Mg given: 15 Paralytic: succinylcholine Mg given: 100 Laryngoscope: fiber optic video scope ET tube size: 8 Tube secured depth (cm): 25 Tube secured location: teeth Tube placement confirmation: visualized tube passing through cords, equal breath sounds bilaterally, no breath sounds over epigastrium and confirmation by capnometry Patient tolerated procedure: well Intubation complications: none Additional comments: Date of service was 10/12/2019 at 02:15 hrs.
[2019-10-12] MEDS: KETOROLAC 30 MG/ML VIAL (*BKC) IV PUSH (03:52)
[2019-10-12 04:28] LABS: Alveolar/Arterial O2 Gradient 387.7 mmHg; Base Excess ABG -1.6 mEq/l (+/-2.0); Carboxyhemoglobin 0.3 % THb (0-2.0); Fractional Inspired Oxygen 90 %; HCO3 ABG 23.1 mEq/l (22.0-26.0); Oxygen Content ABG 17.3 %vol (16.0-22.0); Oxygen Saturation ABG 99.4 % (95.0-100.0); Oxyhemoglobin 97.2 % THb (90.0-100.0); PCO2 ABG 38.7 mmHg (35.0-45.0); PO2 ABG 214.3 mmHg (80.0-100.0); PO2 FiO2 Ratio Arterial Blood 2.38 %; Reduced Hemoglobin 1.5 %THb (0-5.0); Total Hemoglobin 12.3 g/dL (12.0-18.0); pH ABG 7.393 (7.350-7.450)
[2019-10-12 04:29] LABS: Arterial Blood Gas PEEP 10 cmH2O; Arterial Blood Gas Tidal Volume 500 ml; Arterial Blood Gas Vent Mode CMV; Arterial Blood Gas Ventilator rate 15 /MIN; Device VENTILATOR; Modified Allen's Test Pass; Site Drawn RIGHT RADIAL
[2019-10-12 04:38] LABS: Basophils Absolute Auto 0.1 K/mm3 (0.0-0.1); Basophils Percent Auto 0.3 % (0.2-1.2); Eosinophils Percent Auto 0.1 % (0-4.4); Hematocrit 32.3 % (42.0-52.0); Hemoglobin 11.3 g/dL (14.0-18.0); Immature Granulocyte Absolute 0.39 K/mm3 (0.00-0.031); Immature Granulocyte Percent A 2.5 % (0-0.5); Lymphocytes Percent Auto 1.3 % (18.3-44.2); Mean Corpuscular Hemoglobin 29.4 pg (26-34); Mean Corpuscular Volume 83.9 fl (80-100); Mean Platelet Volume 9.9 fl (7.4-10.4); Monocytes Absolute Auto 0.3 K/mm3 (0.1-0.6); Monocytes Percent Auto 1.6 % (2.6-8.5); Neutrophils Absolute Auto 14.9 K/mm3 (1.3-6.7); Neutrophils Percent Auto 94.2 % (45.5-73.1); Platelet Count Result 510 k/mm3 (150-375); Red Blood Count 3.85 M/mm3 (4.6-6.20); Red Cell Distribution Width 11.8 % (11.5-14.5); White Blood Count 15.8 K/mm3 (4.5-10.0)
[2019-10-12] MEDS: SODIUM CHLORIDE 0.9% IV 500 ML IV CONT (05:00)
[2019-10-12 05:09] LABS: Alanine Aminotransferase 20 U/L (4-50); Albumin Level 2.5 g/dL (3.5-5.1); Alkaline Phosphatase 87 U/L (38-126); Anion Gap 8 mmol/L (8-16); Aspartate Amino Transferase 76 U/L (17-59); Bilirubin,Total < 0.1 mg/dL (0.2-1.3); Blood Urea Nitrogen 19 mg/dL (9-20); Calcium 8.3 mg/dL (8.4-10.2); Carbon Dioxide 25 mmol/L (22-30); Chloride 90 mmol/L (98-107); Estimated CRCL calculation 54 ml/min; Estimated Glomerular Filt Rate > 60; Glucose 110 mg/dL (75-110); Magnesium 1.8 mg/dL (1.6-2.3); Potassium 4.9 mmol/L (3.4-5.0); Sodium 123 mmol/L (137-145)
--- NOTE | 2019-10-12 05:12 | PC.NURSE ---
This patient, Kirt Ramos, was received from [IMU Room 231 ] on 10/12/19 at 0230. Personal belongings list checked and signed. Patient/family oriented to unit policies and routines
[2019-10-12 05:31] LABS: CRP 16.6 mg/dL (<1.0)
[2019-10-12] MEDS: NOREPINEPHRINE 8 MG/D5W 250 ML 8 MG/250 ML BAG 9.4 MG IV CONT (06:45)
--- NOTE | 2019-10-12 06:50 | WPDPROCEDUR ---
Procedures Central Line Placement Right Femoral: Central Line Date: 10/12/19 Central Line Time: 06:50 Discussed w/ the patient/family/POA,the placement of a central venous catheter, including its clinical necessity/indication & associated potential risks, benifits and alternatives.: Yes Time Out Performed: Yes Patient Position: supine Patient placed on monitor/pulse ox: Yes Provider Prep: mask, sterile gown, sterile gloves, Max. sterile barrier precautions, cap, hand hygiene with conventional soap/water or alcohol based hand rub and emergent ? sterile barriers not used Central line prep: 2% Chlorhexidine scrub and sterile full body sheet applied Local anesthesia used: lidocaine 1% Amount of anesthesia used (ml): 5 Sterile US Technique with sterile gel/sterile probe covers: Yes Central line lumen inserted: triple Pashto: 7 Length (cm): 20 Depth of Insertion (cm): 20 Post procedure: sutured in place, good blood return, all ports aspirated, flushed, capped, tegaderm, hemostatic disc, antimicrobial disc and aseptic technique maintained throughout procedure Patient tolerated procedure: well Complications: none Additional comments: Date of service of procedure was 10/12/2019 at 06:30 hrs.
[2019-10-12 07:44] LABS: Glucose Point of Care 99 (65-105)
[2019-10-12] MEDS: ENOXAPARIN 40 MG/0.4 ML SYRINGE SUB-Q (08:54)
[2019-10-12] MEDS: amLODIPine BESYLATE 5 MG TABLET PO (08:55)
[2019-10-12] MEDS: FAMOTIDINE 20 MG/2 ML VIAL IV PUSH ×2 (08:55→22:06)
[2019-10-12] MEDS: guaiFENesin 12 HR 600 MG TABCR PO (08:56)
[2019-10-12] MEDS: SODIUM CHLORIDE 0.9% IV 1,000 ML 75 ML IV CONT (09:15)
--- NOTE | 2019-10-12 10:54 | PCDIET ---
Nutrition Follow-Up Complete: Nutrition Diagnosis: Inadequate oral intake related to pneumonia as evidenced by poor po intake and weight loss of 23 lbs. Nutrition Goal: Intake of at least 75% of meals/supplements Goal not met, as patient transferred to ICU and intubated. Plan for bronchoscopy later today, then possible start on tube feedings. KUB noted. Would suggest slow advancement of enteral feedings in the event patient does have early obstruction or ileus: Vital 1.5 beginning at 20mL/hr and advancing by 10mL/hr every 8 hours, as tolerated, to goal of 50mL/hr. This will provide 1650kcal (1750kcal with Propofol at current rate), 74g protein and 840mL free water over 22 hours daily. Recommend 30mL water flush every 4-6 hours. If medically appropriate, would also consider medication to promote BM. Last recorded weight is 63.4 kg. Recommend daily weights. Bowel Motility: Last BM on 10/05/19? OG to suction without significant reported output, per RN. Labs Reviewed: Hgb (11.3), Hct (32.3), Na (123), Alb (2.5), Molly Ca (9.5) Meds Noted: Colace, Pepcid, Zofran, NS at 75mL/hr, Zithromax, Fentanyl, Versed, Propofol (rate of 3.8mL/hr), Rocephin, Xopenex, Septra Additional Notes: No documented skin breakdown. Will continue to monitor with same goal. Nutrition Monitoring and Evaluation: Follow up in 3 days.
--- NOTE | 2019-10-12 11:16 | WPDCNINT ---
Assessment and Plan Assessment and plan (1) Acute respiratory failure with hypoxia: Code(s): J96.01 - Acute respiratory failure with hypoxia Status: Acute Assessment and Plan: Acute Respiratory failure secondary to pneumonia in an immunocompromised patient, ?PJP pneumonia Continue full mechanical ventilation support to prevent hypoxemia/hypercarbia and end organ damage. ABG and PCXR reviewed and will repeat in am. Ventilator settings reviewed Bronchodilators Discussed with Dr. Antoine and requested a bronchoscopy for Gram stain and culture. She will plan to do it today patient on empiric Bactrim, azithromycin and Rocephin per Infectious Disease specialist (2) Pneumonia: Qualifiers: Laterality: bilateral Lung location: unspecified part of lung Pneumonia type: due to unspecified organism Qualified Code(s): J18.9 - Pneumonia, unspecified organism Code(s): J18.9 - Pneumonia, unspecified organism Status: Acute (3) Septic shock: Code(s): A41.9 - Sepsis, unspecified organism; R65.21 - Severe sepsis with septic shock Status: Acute Assessment and Plan: patient has received significant amount of fluid since admission continue cautious amount IV fluid Levophed infusion to maintain mean arterial pressure more than 65 add stress dose hydrocortisone (4) Suspected COVID-19 virus infection: Code(s): Z20.828 - Contact with and (suspected) exposure to other viral communicable diseases Status: Acute Assessment and Plan: COVID-19 ruled out. SARS-CoV-2 PCR was negative x 2 Patient was on Airborne, Droplet and Contact Isolation which now has been discontinued. (5) AIDS: Code(s): B20 - Human immunodeficiency virus [HIV] disease Status: Acute Assessment and Plan: New diagnosis HIV antibody screen positive viral load is pending CD4 count is 120 Per infectious disease (6) DVT prophylaxis: Code(s): Z29.9 - Encounter for prophylactic measures, unspecified Status: Acute Assessment and Plan: Lovenox Additional Plan DVT prophylaxis - Lovenox subcutaneous Stress ulcer prophylaxis - Pepcid Nutrition - will start Tube Feeds after bronchoscope Code Status - Full Code No family at bedside. I called Dr. Antoine this morning and discussed case with her Total Critical Care Time - 40 minutes Due to a high probability of clinically significant, life threatening deterioration, the patient required my highest level of preparedness to intervene emergently and I personally spent this critical care time directly and personally managing the patient. This critical care time included obtaining a history; examining the patient; pulse oximetry; ordering and review of studies; arranging urgent treatment with development of a management plan; evaluation of patient's response to treatment; frequent reassessment; and discussions with other providers. It was exclusive of separately billable procedures and treating other patients and teaching time. Please see Assessment and Plan section and the rest of the note for further information on patient assessment and treatment [employer] Consult Note Consult date: 10/12/19 Time Seen: 11:20 HPI: Kirt Ramos is a 44 year old male with no significant past medical history who presented to the emergency department on 10/02/2019 with complaints of shortness of breath. he was having symptoms for 2 weeks prior to presentation. He also complained of productive cough on presentation. It had relatives who were tested positive for COVID but denied any direct contact with them at that time. chest x-ray showed diffuse bilateral infiltrates. He was admitted as a COVID-19 PUI and was later tested twice and was negative. COVID-19 PCR 10/01 and 10/02 Negative CTA 10/03 IMPRESSION: 1. No pulmonary embolism. 2. Diffuse groundglass opacities throughout both lungs sparing the immediate subpleural lung. Different
--- NOTE | 2019-10-12 11:49 | WPDINFPN2 ---
Progress Note: A&P Assessment and Plan (1) Concern about sexually transmitted disease in male without diagnosis: Code(s): Z71.1 - Person with feared health complaint in whom no diagnosis is made Status: Acute Assessment and Plan: 1. + HIV screen, very likely AIDS with depressed CD4. But his CD4 may be depressed due to his acute illness, and his baseline CD4 may in fact be much higher. Still await viral load 2. Hemorrhoids 3. CAP, usual bacterial pathogens or PJP. 4. Hep C Ab + 5. Resp. failure. 6. R femoral TLC placed 10/11 REC Ctx #11, and azithro #8, also on empiric TMP-SMX IV #5, continue. Appreciate Dr. Antoine's assistance. Await viral load confirmation for the Hep C. 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 Subjective Date/time seen: 10/12/19 11:49 Interval history: events noted Exam Narrative: Exam Narrative: t max 40.4 Const: General: no acute distress Resp: Effort & Inspection: normal respiratory effort Auscultation: clear to auscultation bilaterally and diminished lung sounds Cardio: Rate: regular rate Rhythm: regular rhythm Heart sounds: no gallops and no murmurs GI: Inspection: non-distended GI Palp: Yes Soft to palpation and No Tenderness to palpation present (GI) Urinary Catheter: Urinary Catheter: patent and draining Skin: General skin exam: normal color and no rashes or lesions noted Objective Data Vital Signs Vital Signs: Vital Signs - 24 hr 10/11/19 12:00 10/11/19 13:07 10/11/19 13:15 Temperature 37.6 C H Pulse Rate 126 H 128 H Respiratory Rate 18 Blood Pressure 167/81 H Pulse Oximetry 98 93 10/11/19 14:00 10/11/19 15:28 10/11/19 16:00 Temperature Pulse Rate 132 H 148 H 143 H Respiratory Rate Blood Pressure Pulse Oximetry 10/11/19 17:19 10/11/19 18:00 10/11/19 19:28 Temperature 36.2 C L 36.5 C Pulse Rate 125 H 108 H 109 H Respiratory Rate 20 20 Blood Pressure 124/64 129/68 Pulse Oximetry 94 97 10/11/19 20:00 10/11/19 22:00 10/11/19 23:47 Temperature 36.1 C L Pulse Rate 109 H 105 H 114 H Respiratory Rate 20 20 Blood Pressure 162/69 H Pulse Oximetry 97 97 10/12/19 00:00 10/12/19 02:00 10/12/19 02:25 Temperature Pulse Rate 114 H 159 H 159 H Respiratory Rate 25 H Blood Pressure Pulse Oximetry 97 99 10/12/19 02:30 10/12/19 02:45 10/12/19 02:46 Temperature 39.1 C H Pulse Rate 157 H 165 H 165 H Respiratory Rate 28 H 37 H 35 H Blood Pressure 213/123 H Pulse Oximetry 80 L 10/12/19 03:00 10/12/19 03:08 10/12/19 03:10 Temperature 39.1 C H Pulse Rate 165 H 164 H Respiratory Rate 13 15 Blood Pressure 148/93 H Pulse Oximetry 98 10/12/19 03:30 10/12/19 04:00 10/12/19 04:30 Temperature 40.4 C H 40.4 C H 40.2 C H Pulse Rate 159 H 135 H 126 H Respiratory Rate 30 H 25 H 21 H Blood Pressure 133/85 92/79 L 77/51 L Pulse Oximetry 99 99 98 10/12/19 04:33 10/12/19 04:50 10/12/19 05:00 Temperature 39.6 C H Pulse Rate 131 H 130 H 114 H Respiratory Rate 24 H 21 H Blood Pressure 70/43 L Pulse Oximetry 99 99 10/12/19 05:30 10/12/19 06:00 10/12/19 06:30 Temperature 39.5 C H 38.3 C H 37.8 C H Pulse Rate 102 H 99 97 Respiratory Rate 19 18 20 Blood Pressure 76/44 L 81/47 L 99/53 L Pulse Oximetry 99 98 97 10/12/19 06:45 10/12/19 07:15 10/12/19 07:30 Temperature Pulse Rate 91 84 83 Respiratory Rate 18 Blood Pressure 85/49 L 88/51 L Pulse Oximetry 10/12/19 07:45 10/12/19 08:00 10/12/19 08:15 Temperature 37.0 C Pulse Rate 80 80 80 Respiratory Rate 18 18 Blood Pressure 89/51 L 90/53 L Pulse Oximetry 98 10/12/19 08:24 10/12/19 09:15 10/12/19 10:00 Temperature Pulse Rate 80 77 74 Respiratory Rate 15 18 Blood Pressure 90/53 L Pulse Oximetry 98 98 10/12/19 10:31 Temperature Pulse Rate 77 Respiratory Rate Blood Pressure Pulse Oximetry 98 Intake/Output Intake
[2019-10-12 12:21] LABS: Glucose Point of Care 105 (65-105)
--- NOTE | 2019-10-12 14:20 | PM.OP ---
Procedure Note - Brief Procedure Note - Brief Date of procedure: 10/12/19 Pre-op diagnosis: pneumonia,hyoxemia Surgeon: Bronchoscopy job #[id number] Indication: persistent pneumonia, HIV, failure to respond to treatment please see report Endoprose was not working at the time, so dictation was required to complete documentation, Corry Antoine MD
[2019-10-12] MEDS: LIDOCAINE HCL 2% LOCAL INJ 20 ML VIAL 4 ML INFILTRATE (14:31)
[2019-10-12] MEDS: HYDROCORTISONE SODIUM SUCCINATE 100 MG/2 ML VIAL IV PUSH ×2 (14:32→22:07)
[2019-10-12 15:18] LABS: Hepatitis C RNA, Quant PCR 412000 IU/mL
--- NOTE | 2019-10-12 15:55 | OP_ITS ---
DATE OF PROCEDURE: 10/12/2019 REASON FOR THE BRONCHOSCOPY: Persistent infiltrate, HIV patient, now with respiratory failure. HISTORY: This patient is a 44-year-old gentleman recently admitted with progressive bilateral pneumonia. He has been covered with multiple antibiotics and is failing to respond. Overnight, he was intubated in the intensive care unit. Dr. Caruso, called me about performing a bronchoscopy. I did speak with the patient about a bronchoscopy, but he did not want to do it unless he did compensate and was already on a ventilator for fear that he would get worse, that has now happened. Informed consent was obtained from his family members. Risks, benefits, alternatives, and complications were discussed and they agreed for us to proceed. The patient was in ICU room 12 on mechanical ventilator. Time-out was performed. A bronchoscope was inserted through an adapter through the endotracheal tube. The kellie was sharp with clear mild secretions. The left lung was entered first. BAL was performed in the lateral segment of the left lower lobe. A total of 150 mL of saline was instilled and 72 mL return. This was cloudy with small white particles. All the airways were inspected and they were patent. Next, the right lung was inspected. He had some foamy light nonviscous secretions. These were suctioned. Small amounts of saline were used to cleanse and aspirate these airway segments. The patient tolerated the procedure well. Start time 1321. End time 1330. The patient tolerated procedure well. He was given Versed 2 mg and fentanyl 50 mcg IV push, and he was on IV sedation simultaneously. D I MT: Terri
--- NOTE | 2019-10-12 17:26 | PM.IMPN ---
Progress Note: A&P Assessment and Plan (1) Pneumonia: Qualifiers: Laterality: bilateral Lung location: unspecified part of lung Pneumonia type: due to unspecified organism Qualified Code(s): J18.9 - Pneumonia, unspecified organism Code(s): J18.9 - Pneumonia, unspecified organism Status: Acute Assessment and Plan: Initial CXR shows diffuse lung disease, likely pneumonia. Initial CXR, labs, and clinical picture were highly suggestive of COVID-19, however patient had 2 negative tests. His symptoms had been ongoing approximately [address] showed diffuse groundglass opacities throughout bilateral lung jackman. HIV screen drawn to evaluate for possible pneumonocystis pneumonia; found to be reactive. fever, elevated wcc. Repeat CXR 10/07 shows stable diffuse lung disease concerning for pneumocystis pneumonia. from previous notes unfortunately pt intubated last night due to respiratory failure. Sp bronchoschopy today. wcc high fever coming down (2) Concern about sexually transmitted disease in male without diagnosis: Code(s): Z71.1 - Person with feared health complaint in whom no diagnosis is made Status: Acute Assessment and Plan: Reactive HIV screening 10/03. Patient has both receptive and penetrative sex with males. Approximately 8 months ago, he had protected sex using a condom with an HIV positive male who he reports had undetectable viral load. Reactive screening has been discussed with him. CD4 absolute is 120. (3) Sinus tachycardia: Code(s): R00.0 - Tachycardia, unspecified Status: Acute Assessment and Plan: Review of telemetry reveals sinus tachycardia, no alarms overnight; asymptomatic. Likely multifactorial given fever, infection, and pain. TSH is wnl. He is not orthostatic. No pulmonary embolism seen on CTA. Echo performed on 10/05 with EF >70%, no wall abnormality, severe concentric hypertrophy, and possible HOCM. (4) Hypertension: Qualifiers: Hypertension type: essential hypertension Qualified Code(s): I10 - Essential (primary) hypertension Code(s): I10 - Essential (primary) hypertension Status: Acute Assessment and Plan: Monitor blood pressures closely (5) Hemorrhoids: Qualifiers: Hemorrhoid type: unspecified Qualified Code(s): K64.9 - Unspecified hemorrhoids Code(s): K64.9 - Unspecified hemorrhoids Status: Acute Assessment and Plan: Secondary to straining. (6) Emotional stress: Code(s): R45.7 - State of emotional shock and stress, unspecified Status: Acute Assessment and Plan: Unfortunately the patient's father on 10/04 due to complications of COVID-19 and he was informed by his family while hospitalized. depressed breavement. Subjective Date/time seen: 10/12/19 17:26 Interval history: Patient is a 44 yo M with history of hemorrhoids who is here for likely PCP PNA and reactive HIV ab, and CD4 of 120. pt intubated due to respiratory failure, pt had bronchoscopy today Review of Systems Review of Systems: ROS unobtainable: Yes unobtainable due to endotracheal tube Exam Narrative: Exam Narrative: younger male sedated on ventilator abdo soft legs non edematous Objective Data Vital Signs Vital Signs: Vital Signs - 24 hr 10/11/19 18:00 10/11/19 19:28 10/11/19 20:00 Temperature 36.5 C Pulse Rate 108 H 109 H 109 H Respiratory Rate 20 20 Blood Pressure 129/68 Pulse Oximetry 97 97 10/11/19 22:00 10/11/19 23:47 10/12/19 00:00 Temperature 36.1 C L Pulse Rate 105 H 114 H 114 H Respiratory Rate 20 25 H Blood Pressure 162/69 H Pulse Oximetry 97 97 10/12/19 02:00 10/12/19 02:25 08
--- NOTE | 2019-10-12 17:52 | PM.PNPUL ---
Progress Note: A&P Assessment and Plan (1) Pneumonia: Qualifiers: Laterality: bilateral Lung location: unspecified part of lung Pneumonia type: due to unspecified organism Qualified Code(s): J18.9 - Pneumonia, unspecified organism Code(s): J18.9 - Pneumonia, unspecified organism Status: Acute Assessment and Plan: Her has persistent infiltrates, HIV (+) antibody, on treatment with ceftriaxone, azithromycin and sulfamethoxazole for the usual community acquired microbes and Pneumocystis jirovecii; He worsened, required intubation overnight, and completed bronch today with a good yield on BAL, 150 ml instilled, 72 ml returned, so a 50% return consistent with an alveolar filling process. his FiO2 was stable at 60%; we will await his BAL samples which were sent for cell count, Gram stain C&S, fungal and AFB. Continue antibiotics. (2) Acute respiratory failure with hypoxia: Code(s): J96.01 - Acute respiratory failure with hypoxia Status: Acute Assessment and Plan: As above, intubated overnight; O2 requirement is still significant with 60% and PEEP 10 cm. Acid base status is normal. Subjective Date/time seen: 10/12/19 17:52 Hospital day # 9; ICU day #1 Admitted October 02 with increased shortness of breath This 44 yo man was seen earlier today in ICU Room 12 when he underwent bronchoscopy for persistent infiltrates with HIV, failure to respond to treatment. He was intubated overnight, required a central line for shock. Initially, he said that he did not want to proceed with a bronchoscopy if he might deteriorate, however since intubation, he was stable to proceed without risk of making him any worse. He is comfortably sedated on Versed & Fentanyl;, not in distress. ABG: after intubation on 90% pH 7.39 / 38.7 / 214 /23 /97% TV 500 90%/PEEP 10 Hep C antibody (+) Low Total lymphocyte count 769. Low % CD4 is 16%. Low CD4 count 120. WBC = 15.3K today, Na+ 123 low, CXR today 10/11 1. Worsening moderate pulmonary edema versus less likely pneumonia. 2. Nonspecific bowel gas pattern with gas-filled but not frankly dilated small bowel which could represent ileus, early/partial small bowel obstruction or gaseous distention from back mask ventilation in the appropriate clinical setting. Review of Systems Review of Systems: ROS unobtainable: Yes unobtainable due to endotracheal tube Exam Narrative: Exam Narrative: Febrile 38.6 C Const: General: no acute distress (intubated) HENMT: Head: normal to inspection General nose exam: Normal external nose present Face and sinus: normal facial exam Eyes: General: appearance normal, both eyes and all related structures Neck: Neck: no JVD Lymphatic: lymphadenopathy not noted Resp: Auscultation: diminished lung sounds Cardio: Rate: regular rate Rhythm: regular rhythm Heart sounds: S1 normal heart sound present, S2 normal heart sound present, no gallops, no murmurs and no rubs GI: Auscultation: Hypoactive bowel sounds present Skin: General skin exam: normal color and no rashes or lesions noted Psych: Mental Status: other ( sedated, nonverbal) Objective Data Vital Signs Vital Signs: Vital Signs - 24 hr 10/11/19 18:00 10/11/19 19:28 10/11/19 20:00 Temperature 36.5 C Pulse Rate 108 H 109 H 109 H Respiratory Rate 20 20 Blood Pressure 129/68 Pulse Oximetry 97 97 10/11/19 22:00 10/11/19 23:47 10/12/19 00:00 Temperature 36.1 C L Pulse Rate 105 H 114 H 114 H Respiratory Rate 20 25 H Blood Pressure 162/69 H Pulse Oximetry 97 97 10/12/19 02:00 10/12/19 02:25 10/12/19 02:30 Temperature 39.1 C H Pulse Rate 159 H 159 H 157 H Respiratory Rate 28 H Blood Pressure 213/123 H Pulse Oximetry 99 80 L 10/12/19 02:45 10/12/19 02:46 10/12/19 03:00 Temperature Pulse Ra
[2019-10-12 18:42] LABS: Source Bronchial Fluid Bronchial Washings
[2019-10-12 18:43] LABS: Appearance Bronchial Fluid Hazy; Color Bronchial Fluid Colorless; Lymphocytes Bronchial Fluid 49 %; Monocytes Bronchial Fluid 3 %; Neutrophils Bronchial Fluid 48 %
[2019-10-12 18:44] LABS: Eosinophils Bronchial Fluid 0 %; Macrophages Bronchial Fluid 0; Other Cells Bronchial Fluid 0 %
[2019-10-12] MEDS: NOREPINEPHRINE 8 MG/D5W 250 ML 8 MG/250 ML BAG 7.5 MG IV CONT (22:04)
[2019-10-13] VITALS (32 sets, daily range): BP systolic 102–127; BP diastolic 64–84; PULSE 78–93; RESP 18–20; TEMP 36.4–37.3; O2SAT 96–100
[2019-10-13] MEDS: SODIUM CHLORIDE 0.9% IV 1,000 ML 75 ML IV CONT (02:22)
[2019-10-13 05:39] LABS: Alveolar/Arterial O2 Gradient 193.5 mmHg; Base Excess ABG -0.1 mEq/l (+/-2.0); Carboxyhemoglobin 0.5 % THb (0-2.0); Fractional Inspired Oxygen 45 %; HCO3 ABG 25.1 mEq/l (22.0-26.0); Methemoglobin ABG 0.4 %THb (0-1.5); Oxygen Content ABG 16.6 %vol (16.0-22.0); Oxygen Saturation ABG 95.5 % (95.0-100.0); Oxyhemoglobin 93.2 % THb (90.0-100.0); PCO2 ABG 42.8 mmHg (35.0-45.0); PO2 ABG 78.7 mmHg (80.0-100.0); PO2 FiO2 Ratio Arterial Blood 1.75 %; Reduced Hemoglobin 5.9 %THb (0-5.0); Total Hemoglobin 12.6 g/dL (12.0-18.0); pH ABG 7.386 (7.350-7.450)
[2019-10-13 05:40] LABS: Arterial Blood Gas Vent Mode CMV; Arterial Blood Gas Ventilator rate 18 /MIN; Device VENTILATOR; Modified Allen's Test Pass; Site Drawn LEFT RADIAL
[2019-10-13 05:41] LABS: Arterial Blood Gas PEEP 10 cmH2O; Arterial Blood Gas Tidal Volume 500 ml
[2019-10-13] MEDS: HYDROCORTISONE SODIUM SUCCINATE 100 MG/2 ML VIAL IV PUSH ×2 (06:12→18:46)
[2019-10-13 06:19] LABS: Glucose Point of Care 116 (65-105)
[2019-10-13] MEDS: FAMOTIDINE 20 MG/2 ML VIAL IV PUSH ×2 (08:06→20:24)
[2019-10-13] MEDS: ENOXAPARIN 40 MG/0.4 ML SYRINGE SUB-Q (08:06)
--- NOTE | 2019-10-13 09:00 | WPDINTPN ---
Progress Note: A&P Assessment and Plan (1) Acute respiratory failure with hypoxia: Code(s): J96.01 - Acute respiratory failure with hypoxia Status: Acute Assessment and Plan: Acute Respiratory failure secondary to pneumonia in an immunocompromised patient, ?PJP pneumonia Continue full mechanical ventilation support to prevent hypoxemia/hypercarbia and end organ damage. ABG and PCXR reviewed and will repeat in am. Ventilator settings reviewed. Decrease PEEP to 8 Bronchodilators Patient underwent diagnostic bronchoscopy yesterday which she tolerated well. BAL was collected and sent for stains and culture patient on empiric Bactrim, azithromycin and Rocephin per Infectious Disease specialist PJP smear was sent yesterday and is pending but since patient has confirmed AIDS, I will start empiric steroids to supplement Bactrim treatment (2) Pneumonia: Qualifiers: Laterality: bilateral Lung location: unspecified part of lung Pneumonia type: due to unspecified organism Qualified Code(s): J18.9 - Pneumonia, unspecified organism Code(s): J18.9 - Pneumonia, unspecified organism Status: Acute (3) Septic shock: Code(s): A41.9 - Sepsis, unspecified organism; R65.21 - Severe sepsis with septic shock Status: Acute Assessment and Plan: patient has received significant amount of fluid since admission patient fairly positive on his balance hence will discontinue further fluids Levophed infusion to maintain mean arterial pressure more than 65. turned off this morning Wean stress dose hydrocortisone (4) Suspected COVID-19 virus infection: Code(s): Z20.828 - Contact with and (suspected) exposure to other viral communicable diseases Status: Acute Assessment and Plan: COVID-19 ruled out. SARS-CoV-2 PCR was negative x 2 Patient was on Airborne, Droplet and Contact Isolation which now has been discontinued. (5) AIDS: Code(s): B20 - Human immunodeficiency virus [HIV] disease Status: Acute Assessment and Plan: New diagnosis HIV antibody screen positive viral load 412K CD4 count is 120 Per infectious disease (6) DVT prophylaxis: Code(s): Z29.9 - Encounter for prophylactic measures, unspecified Status: Acute Assessment and Plan: Lovenox Additional Plan DVT prophylaxis - Lovenox subcutaneous Stress ulcer prophylaxis - Pepcid Nutrition - Start tube Feeds Code Status - Full Code No family at bedside. Total Critical Care Time - 30 minutes Due to a high probability of clinically significant, life threatening deterioration, the patient required my highest level of preparedness to intervene emergently and I personally spent this critical care time directly and personally managing the patient. This critical care time included obtaining a history; examining the patient; pulse oximetry; ordering and review of studies; arranging urgent treatment with development of a management plan; evaluation of patient's response to treatment; frequent reassessment; and discussions with other providers. It was exclusive of separately billable procedures and treating other patients and teaching time. Please see Assessment and Plan section and the rest of the note for further information on patient assessment and treatment Subjective Date/time seen: 10/13/19 0830 Overnight events reviewed Afebrile Continues to be on mechanical ventilation Levophed was weaned off this morning Vitals acceptable Propofol discontinued and patient on Versed and fentanyl infusions Patient had diagnostic bronchoscopy done yesterday Review of Systems Review of Systems: ROS unobtainable: Yes unobtainable due to endotracheal tube Exam Narrative: Exam Narrative: General: Pt is sedated, intubated and on mechanical ventilation Lungs/Chest: Trachea central Coarse BS B/L, No crackles or wheezing. Cardiac: RRR. Normal S1 S2. No murmurs Circulation:
--- NOTE | 2019-10-13 10:18 | PM.EVENT ---
Event Note Event Note Event Note: spoke to microbiology lab and I was told that Pneumocystis smear is a send out test and will not be back for 7-10 days. I have requested pneumocystis PCR which may come back earlier as per [employer] labor relations director. I have placed the order in the chart and have confirmed that they have sample from yesterday which they will send out.
[2019-10-13 10:44] LABS: Basophils Percent Auto 0.2 % (0.2-1.2); Hematocrit 28.5 % (42.0-52.0); Immature Granulocyte Absolute 0.11 K/mm3 (0.00-0.031); Immature Granulocyte Percent A 1.8 % (0-0.5); Lymphocytes Absolute Auto 0.57 K/mm3 (0.9-3.2); Lymphocytes Percent Auto 9.5 % (18.3-44.2); Mean Corpuscular HGB Conc 35.1 g/dl (32-36); Mean Corpuscular Hemoglobin 29.2 pg (26-34); Mean Corpuscular Volume 83.3 fl (80-100); Mean Platelet Volume 9.7 fl (7.4-10.4); Monocytes Absolute Auto 0.1 K/mm3 (0.1-0.6); Monocytes Percent Auto 2.2 % (2.6-8.5); Neutrophils Absolute Auto 5.2 K/mm3 (1.3-6.7); Neutrophils Percent Auto 86.3 % (45.5-73.1); Platelet Count Result 430 k/mm3 (150-375); Red Blood Count 3.42 M/mm3 (4.6-6.20); Red Cell Distribution Width 11.9 % (11.5-14.5)
[2019-10-13] MEDS: methylPREDNISolone SOD SUCC 40 MG VIAL 30 MG IV PUSH ×2 (10:49→20:23)
[2019-10-13 10:57] LABS: Alanine Aminotransferase 17 U/L (4-50); Albumin Level 2.3 g/dL (3.5-5.1); Alkaline Phosphatase 77 U/L (38-126); Anion Gap 5 mmol/L (8-16); Aspartate Amino Transferase 47 U/L (17-59); Bilirubin,Total 0.1 mg/dL (0.2-1.3); Blood Urea Nitrogen 15 mg/dL (9-20); Calcium 8.1 mg/dL (8.4-10.2); Carbon Dioxide 26 mmol/L (22-30); Chloride 93 mmol/L (98-107); Estimated CRCL calculation 77 ml/min; Estimated Glomerular Filt Rate > 60; Glucose 100 mg/dL (75-110); Potassium 5.1 mmol/L (3.4-5.0); Sodium 124 mmol/L (137-145)
--- NOTE | 2019-10-13 16:12 | PM.PNPUL ---
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 FiO2 is lower, 45%, PEEP 8, Appreciate Dr Caruso sending PCP PCR; other specimens are pending. Samples which were sent for cell count, Gram stain C&S, fungal and AFB. Continue antibiotics. (2) Acute respiratory failure with hypoxia: Code(s): J96.01 - Acute respiratory failure with hypoxia Status: Acute Assessment and Plan: As above, O2 requirement is still significant with 45% and PEEP 8 cm. Acid base status is normal. A-a gradient is better. He is turning the corner and may be able to extubate tomorrow. Subjective Date/time seen: 10/13/19 16:12 This 44 yo man is seen in follow up for bilateral pneumonia with progressive hypoxemic respiratory failure, bronch yesterday, lower FiO2 requirements today. He had tube feeds started today Vital 1.5. His WBC is now normal, no fever, O2 requirements are lower. His bronch washings are unremarkable, clear, half neutrophils, half lymphocytes and smears for fungus, AFB pending. PCP PCR was requested today by Dr Caruso. Review of Systems Review of Systems: ROS unobtainable: Yes unobtainable due to endotracheal tube Exam Narrative: Exam Narrative: lightly sedated, responds to voice, opens his eyes Const: General: no acute distress (intubated) Orientation/consciousness: patient oriented x3 HENMT: Head: normal to inspection Face and sinus: normal facial exam Mouth: Yes Normal oral and palatal mucosa present Eyes: General: appearance normal, both eyes and all related structures Neck: Neck: no JVD Lymphatic: lymphadenopathy not noted Resp: Auscultation: diminished lung sounds Cardio: Rate: regular rate Rhythm: regular rhythm Heart sounds: S1 normal heart sound present, S2 normal heart sound present, no gallops, no murmurs and no rubs GI: Auscultation: Hypoactive bowel sounds present Skin: General skin exam: normal color and no rashes or lesions noted Extrem: General: no clubbing, cyanosis or edema Psych: Mental Status: other ( sedated, nonverbal) Objective Data Vital Signs Vital Signs: Vital Signs - 24 hr 10/12/19 17:14 10/12/19 18:00 10/12/19 18:07 Temperature 37.1 C =99.6 F Pulse Rate 90 90 90 Respiratory Rate 18 18 Blood Pressure 113/69 113/69 Pulse Oximetry 98 98 10/12/19 18:41 10/12/19 20:00 10/12/19 20:16 Temperature 37.1 C Pulse Rate 89 92 90 Respiratory Rate 18 Blood Pressure 112/70 111/66 Pulse Oximetry 99 99 10/12/19 22:00 10/12/19 22:04 10/12/19 22:52 Temperature Pulse Rate 85 87 88 Respiratory Rate 18 Blood Pressure 109/70 101/67 Pulse Oximetry 99 100 10/13/19 00:00 10/13/19 00:22 10/13/19 00:27 Temperature 37.3 C = 99.14 Pulse Rate 89 90 88 Respiratory Rate 18 18 Blood Pressure 112/73 110/69 Pulse Oximetry 100 10/13/19 01:52 10/13/19 02:00 10/13/19 02:20 Temperature 36.8 C Pulse Rate 85 85 85 Respiratory Rate 18 18 Blood Pressure 112/68 Pulse Oximetry 99 98 10/13/19 04:00 10/13/19 04:45 08/15/20 05:15 Temperature 36.6 C Pulse Rate 79 81 91 Respiratory Rate 18 Blood Pressure 113/74 127/81 Pulse Oximetry 99 96 10/13/19 06:00 08
--- NOTE | 2019-10-13 18:35 | PM.IMPN ---
Progress Note: A&P Assessment and Plan (1) Pneumonia: Qualifiers: Laterality: bilateral Lung location: unspecified part of lung Pneumonia type: due to unspecified organism Qualified Code(s): J18.9 - Pneumonia, unspecified organism Code(s): J18.9 - Pneumonia, unspecified organism Status: Acute Assessment and Plan: Initial CXR shows diffuse lung disease, likely pneumonia. Initial CXR, labs, and clinical picture were highly suggestive of COVID-19, however patient had 2 negative tests. His symptoms had been ongoing approximately [address] showed diffuse groundglass opacities throughout bilateral lung jackman. HIV screen drawn to evaluate for possible pneumonocystis pneumonia; found to be reactive. fever, elevated wcc. Repeat CXR 10/07 shows stable diffuse lung disease concerning for pneumocystis pneumonia. from previous notes unfortunately pt intubated last night due to respiratory failure. Sp bronchoschopy yesterday. wcc high fever coming down, weaning off the vent possible extubation tomorrow. pt is on IV rocephin, bactri and IV azithromycin (2) Concern about sexually transmitted disease in male without diagnosis: Code(s): Z71.1 - Person with feared health complaint in whom no diagnosis is made Status: Acute Assessment and Plan: Reactive HIV screening 10/03. Patient has both receptive and penetrative sex with males. Approximately 8 months ago, he had protected sex using a condom with an HIV positive male who he reports had undetectable viral load. Reactive screening has been discussed with him. CD4 absolute is 120. (3) Sinus tachycardia: Code(s): R00.0 - Tachycardia, unspecified Status: Acute Assessment and Plan: Review of telemetry reveals sinus tachycardia, no alarms overnight; asymptomatic. Likely multifactorial given fever, infection, and pain. TSH is wnl. He is not orthostatic. No pulmonary embolism seen on CTA. Echo performed on 10/05 with EF >70%, no wall abnormality, severe concentric hypertrophy, and possible HOCM. (4) Hypertension: Qualifiers: Hypertension type: essential hypertension Qualified Code(s): I10 - Essential (primary) hypertension Code(s): I10 - Essential (primary) hypertension Status: Acute Assessment and Plan: Monitor blood pressures closely (5) Hemorrhoids: Qualifiers: Hemorrhoid type: unspecified Qualified Code(s): K64.9 - Unspecified hemorrhoids Code(s): K64.9 - Unspecified hemorrhoids Status: Acute Assessment and Plan: Secondary to straining. (6) Emotional stress: Code(s): R45.7 - State of emotional shock and stress, unspecified Status: Acute Assessment and Plan: Unfortunately the patient's father on 10/04 due to complications of COVID-19 and he was informed by his family while hospitalized. depressed breavement. Subjective Date/time seen: 10/13/19 18:35 Interval history: Patient is a 44 yo M with history of hemorrhoids who is here for likely PCP PNA and reactive HIV ab, and CD4 of 120. pt intubated due to respiratory failure, pt had bronchoscopy yesterday, doing better no fever, weaning off the vent possible extubation tomorrow. Review of Systems Review of Systems: ROS unobtainable: Yes unobtainable due to endotracheal tube Exam Narrative: Exam Narrative: younger male sedated on ventilator abdo soft legs non edematous Objective Data Vital Signs Vital Signs: Vital Signs - 24 hr 10/12/19 18:41 10/12/19 20:00 10/12/19 20:16 Temperature 37.1 C Pulse Rate 89 92 90 Respiratory Rate 18 Blood Pressure 112/70 111/66 Pulse Oximetry 99 99 10/12/19 22:00 10/12/19 22:04
[2019-10-13 19:09] LABS: HIV 1 RNA PCR 187000 Copies/mL; HIV 1 RNA PCR 5.27 Log cps/mL
[2019-10-13] MEDS: IPRATROPIUM BR 0.02% INH SOLN 0.5 MG/2.5 ML VIAL INHALATION (20:48)
[2019-10-13] MEDS: ALBUTEROL SULFATE NEB 2.5 MG/0.5 ML INH INHALATION (20:49)
[2019-10-13 23:53] LABS: Glucose Point of Care 121 (65-105)
[2019-10-14] VITALS (37 sets, daily range): BP systolic 104–136; BP diastolic 64–93; PULSE 78–102; RESP 17–19; TEMP 36.2–36.8; O2SAT 91–100
[2019-10-14] MEDS: ROCURONIUM BROMIDE 50 MG/5 ML VIAL 30 MG IV PUSH (00:05)
[2019-10-14] MEDS: MIDAZOLAM HCL 2 MG/2 ML VIAL IV PUSH ×2 (00:08)
--- NOTE | 2019-10-14 00:50 | P.PCNBED_ITS ---
Procedures Intubation Intubation Date: 10/14/19 Intubation Time: 00:10 A pre-procedural Time-Out was completed immediately before starting the procedure and confirmed: Patient Identification, Site, Procedure, Patient Position and the Availability of Requisite Equipment: Yes Sedative: versed Mg given: 2 Paralytic: rocuronium Mg given: 30 Laryngoscope: fiber optic video scope Assist device used: Bougie ET tube size: 8 Tube secured depth (cm): 26 Tube secured location: teeth Tube placement confirmation: visualized tube passing through cords, equal breath sounds bilaterally, no breath sounds over epigastrium and confirmation by capnom etry Patient tolerated procedure: well Intubation complications: none Additional comments: ETT tube was changed out secondary to a blown cuff. Date of service was 10/14/2019 at 00:10 hrs.
[2019-10-14] MEDS: GLYCOPYRROLATE INJ (*SP) 0.2 MG/ML VIAL IV PUSH (01:56)
[2019-10-14 04:32] LABS: Alveolar/Arterial O2 Gradient 139.3 mmHg; Base Excess ABG 1.5 mEq/l (+/-2.0); Carboxyhemoglobin 0.1 % THb (0-2.0); Fractional Inspired Oxygen 40 %; Methemoglobin ABG 0.5 %THb (0-1.5); Oxygen Content ABG 17.7 %vol (16.0-22.0); Oxygen Saturation ABG 97.6 % (95.0-100.0); Oxyhemoglobin 96.1 % THb (90.0-100.0); PCO2 ABG 40.5 mmHg (35.0-45.0); PO2 ABG 99.3 mmHg (80.0-100.0); PO2 FiO2 Ratio Arterial Blood 2.48 %; Reduced Hemoglobin 3.3 %THb (0-5.0); pH ABG 7.425 (7.350-7.450)
[2019-10-14 04:33] LABS: Arterial Blood Gas PEEP 8 cmH2O; Arterial Blood Gas Vent Mode CMV; Arterial Blood Gas Ventilator rate 18 /MIN; Device VENTILATOR; Site Drawn LEFT BRACHIAL
[2019-10-14 04:34] LABS: Arterial Blood Gas Tidal Volume 500 ml
[2019-10-14] MEDS: HYDROCORTISONE SODIUM SUCCINATE 100 MG/2 ML VIAL IV PUSH (05:43)
[2019-10-14 06:04] LABS: Hematocrit 29.3 % (42.0-52.0); Hemoglobin 10.2 g/dL (14.0-18.0); Mean Corpuscular HGB Conc 34.8 g/dl (32-36); Mean Corpuscular Hemoglobin 29.1 pg (26-34); Mean Corpuscular Volume 83.7 fl (80-100); Mean Platelet Volume 9.7 fl (7.4-10.4); Platelet Count Result 475 k/mm3 (150-375); White Blood Count 7.5 K/mm3 (4.5-10.0)
[2019-10-14 06:18] LABS: Alanine Aminotransferase 22 U/L (4-50); Albumin Level 2.3 g/dL (3.5-5.1); Alkaline Phosphatase 79 U/L (38-126); Anion Gap 6 mmol/L (8-16); Aspartate Amino Transferase 46 U/L (17-59); Bilirubin,Total < 0.1 mg/dL (0.2-1.3); Blood Urea Nitrogen 16 mg/dL (9-20); Calcium 8.3 mg/dL (8.4-10.2); Carbon Dioxide 28 mmol/L (22-30); Chloride 93 mmol/L (98-107); Estimated CRCL calculation 86 ml/min; Estimated Glomerular Filt Rate > 60; Glucose 131 mg/dL (75-110); Potassium 4.6 mmol/L (3.4-5.0); Sodium 127 mmol/L (137-145)
--- NOTE | 2019-10-14 07:00 | WPDINTPN ---
Progress Note: A&P Assessment and Plan (1) Acute respiratory failure with hypoxia: Code(s): J96.01 - Acute respiratory failure with hypoxia Status: Acute Assessment and Plan: Acute Respiratory failure secondary to pneumonia in an immunocompromised patient, ?PJP pneumonia Continue full mechanical ventilation support to prevent hypoxemia/hypercarbia and end organ damage. ABG and PCXR reviewed and will repeat in am. Chest x-ray continues to show diffuse bilateral infiltrates hypoxia has improved significantly with FiO2 down to 40% will decrease PEEP to 5 Ventilator settings reviewed. continue Bronchodilators Lasix 20 mg IV x1 Patient underwent diagnostic bronchoscopy 10/11. BAL was collected and sent for stains and culture PJP smear and PCR pending continue empiric Bactrim, azithromycin and Rocephin per Infectious Disease specialist Solu-Medrol started 10/12 (2) Pneumonia: Qualifiers: Laterality: bilateral Lung location: unspecified part of lung Pneumonia type: due to unspecified organism Qualified Code(s): J18.9 - Pneumonia, unspecified organism Code(s): J18.9 - Pneumonia, unspecified organism Status: Acute Assessment and Plan: see above (3) Septic shock: Code(s): A41.9 - Sepsis, unspecified organism; R65.21 - Severe sepsis with septic shock Status: Acute Assessment and Plan: resolved and now off of Levophed IV fluids discontinue as patient has received significant amount of fluid since admission patient fairly positive on his balance hence will discontinue further fluids Wean stress dose hydrocortisone (4) Suspected COVID-19 virus infection: Code(s): Z20.828 - Contact with and (suspected) exposure to other viral communicable diseases Status: Acute Assessment and Plan: COVID-19 ruled out. SARS-CoV-2 PCR was negative x 2 Patient was on Airborne, Droplet and Contact Isolation which now has been discontinued. (5) AIDS: Code(s): B20 - Human immunodeficiency virus [HIV] disease Status: Acute Assessment and Plan: New diagnosis HIV antibody screen positive Viral load 187K CD4 count is 120 Patient also positive for hepatitis-C Management per infectious disease (6) DVT prophylaxis: Code(s): Z29.9 - Encounter for prophylactic measures, unspecified Status: Acute Assessment and Plan: Lovenox Additional Plan DVT prophylaxis - Lovenox subcutaneous Stress ulcer prophylaxis - Pepcid Nutrition - continue tube Feeds Code Status - Full Code No family at bedside. Total Critical Care Time - 31 minutes Due to a high probability of clinically significant, life threatening deterioration, the patient required my highest level of preparedness to intervene emergently and I personally spent this critical care time directly and personally managing the patient. This critical care time included obtaining a history; examining the patient; pulse oximetry; ordering and review of studies; arranging urgent treatment with development of a management plan; evaluation of patient's response to treatment; frequent reassessment; and discussions with other providers. It was exclusive of separately billable procedures and treating other patients and teaching time. Please see Assessment and Plan section and the rest of the note for further information on patient assessment and treatment Subjective Date/time seen: 10/14/19 0700 Overnight events reviewed. ET tube was changed due to blown cuff Afebrile Continues to be on mechanical ventilation Continues to be on vasopressors Vitals acceptable Review of Systems Review of Systems: ROS unobtainable: Yes unobtainable due to endotracheal tube Exam Narrative: Exam Narrative: General: Pt is sedated, intubated and on mechanical ventilation Lungs/Chest: Trachea central Coarse BS B/L, No crackles or wheezing. Cardiac: RRR. Normal S1 S2. No murmurs Circulati
[2019-10-14] MEDS: FUROSEMIDE INJ 40 MG/4 ML VIAL 20 MG IV PUSH (07:58)
[2019-10-14] MEDS: FAMOTIDINE 20 MG/2 ML VIAL IV PUSH ×2 (08:07→21:11)
[2019-10-14] MEDS: ENOXAPARIN 40 MG/0.4 ML SYRINGE SUB-Q (08:07)
[2019-10-14] MEDS: methylPREDNISolone SOD SUCC 40 MG VIAL 30 MG IV PUSH ×2 (08:08→21:10)
[2019-10-14 13:30] LABS: Glucose Point of Care 147 (65-105)
--- NOTE | 2019-10-14 17:02 | PM.IMPN ---
Progress Note: A&P Assessment and Plan (1) Pneumonia: Qualifiers: Laterality: bilateral Lung location: unspecified part of lung Pneumonia type: due to unspecified organism Qualified Code(s): J18.9 - Pneumonia, unspecified organism Code(s): J18.9 - Pneumonia, unspecified organism Status: Acute Assessment and Plan: Initial CXR shows diffuse lung disease, likely pneumonia. Initial CXR, labs, and clinical picture were highly suggestive of COVID-19, however patient had 2 negative tests. His symptoms had been ongoing approximately [address] showed diffuse groundglass opacities throughout bilateral lung jackman. HIV screen drawn to evaluate for possible pneumonocystis pneumonia; found to be reactive. fever, elevated wcc. Repeat CXR 10/07 shows stable diffuse lung disease concerning for pneumocystis pneumonia. from previous notes unfortunately pt intubated last night due to respiratory failure. Sp bronchoschopy. reintubated yesterday pt is on IV rocephin and IV azithromycin. IV bactrim. Iv steroids and vasopressors (2) Concern about sexually transmitted disease in male without diagnosis: Code(s): Z71.1 - Person with feared health complaint in whom no diagnosis is made Status: Acute Assessment and Plan: Reactive HIV screening 10/03. Patient has both receptive and penetrative sex with males. Approximately 8 months ago, he had protected sex using a condom with an HIV positive male who he reports had undetectable viral load. Reactive screening has been discussed with him. CD4 absolute is 120. (3) Sinus tachycardia: Code(s): R00.0 - Tachycardia, unspecified Status: Acute Assessment and Plan: Review of telemetry reveals sinus tachycardia, no alarms overnight; asymptomatic. Likely multifactorial given fever, infection, and pain. TSH is wnl. He is not orthostatic. No pulmonary embolism seen on CTA. Echo performed on 10/05 with EF >70%, no wall abnormality, severe concentric hypertrophy, and possible HOCM. (4) Hypertension: Qualifiers: Hypertension type: essential hypertension Qualified Code(s): I10 - Essential (primary) hypertension Code(s): I10 - Essential (primary) hypertension Status: Acute Assessment and Plan: Monitor blood pressures closely (5) Hemorrhoids: Qualifiers: Hemorrhoid type: unspecified Qualified Code(s): K64.9 - Unspecified hemorrhoids Code(s): K64.9 - Unspecified hemorrhoids Status: Acute Assessment and Plan: Secondary to straining. (6) Emotional stress: Code(s): R45.7 - State of emotional shock and stress, unspecified Status: Acute Assessment and Plan: Unfortunately the patient's father on 10/04 due to complications of COVID-19 and he was informed by his family while hospitalized. depressed breavement. Subjective Date/time seen: 10/14/19 17:02 Interval history: Patient is a 44 yo M with history of hemorrhoids who is here for likely PCP PNA and reactive HIV ab, and CD4 of 120. pt intubated due to respiratory failure, pt had bronchoscopy yesterday, pt reintubated due to blown cuff. Icu MD managing the vent. Review of Systems Review of Systems: ROS unobtainable: Yes unobtainable due to endotracheal tube Exam Narrative: Exam Narrative: younger male sedated on ventilator abdo soft legs non edematous Objective Data Vital Signs Vital Signs: Vital Signs - 24 hr 10/13/19 17:30 10/13/19 18:00 10/13/19 20:00 Temperature 36.5 C Pulse Rate 80 82 83 Respiratory Rate 18 18 18 Blood Pressure 114/72 124/84 Pulse Oximetry 100 100 10/13/19 20:55 10/13/19 20:58 10/13/19 22:00 Temperature 36.4 C L P
[2019-10-14 18:09] LABS: Glucose Point of Care 160 (65-105)
[2019-10-14] MEDS: ALBUTEROL SULFATE NEB 2.5 MG/0.5 ML INH INHALATION (20:47)
[2019-10-14] MEDS: IPRATROPIUM BR 0.02% INH SOLN 0.5 MG/2.5 ML VIAL INHALATION (20:48)
[2019-10-14] MEDS: CENTRAL LINE FLUSH 10 ML IV PUSH (21:11)
[2019-10-15] VITALS (30 sets, daily range): BP systolic 123–167; BP diastolic 69–108; PULSE 87–109; RESP 13–24; TEMP 36.6–36.8; O2SAT 94–98
[2019-10-15 00:25] LABS: Glucose Point of Care 165 (65-105)
[2019-10-15 03:51] LABS: Base Excess ABG 4.2 mEq/l (+/-2.0); Carboxyhemoglobin 0.1 % THb (0-2.0); Fractional Inspired Oxygen 35 %; HCO3 ABG 27.8 mEq/l (22.0-26.0); Methemoglobin ABG 0.4 %THb (0-1.5); Oxygen Content ABG 17.1 %vol (16.0-22.0); Oxygen Saturation ABG 97.7 % (95.0-100.0); Oxyhemoglobin 96.2 % THb (90.0-100.0); PCO2 ABG 38.3 mmHg (35.0-45.0); PO2 FiO2 Ratio Arterial Blood 2.74 %; Reduced Hemoglobin 3.3 %THb (0-5.0); Total Hemoglobin 12.6 g/dL (12.0-18.0); pH ABG 7.479 (7.350-7.450)
[2019-10-15 03:52] LABS: Device VENTILATOR; Modified Allen's Test Pass; Site Drawn RIGHT RADIAL
[2019-10-15 03:53] LABS: Arterial Blood Gas PEEP 5 cmH2O; Arterial Blood Gas Tidal Volume 500 ml; Arterial Blood Gas Vent Mode CMV; Arterial Blood Gas Ventilator rate 18 /MIN
[2019-10-15 04:40] LABS: Hematocrit 29.2 % (42.0-52.0); Hemoglobin 10.1 g/dL (14.0-18.0); Mean Corpuscular HGB Conc 34.6 g/dl (32-36); Mean Corpuscular Hemoglobin 28.6 pg (26-34); Mean Corpuscular Volume 82.7 fl (80-100); Mean Platelet Volume 8.8 fl (7.4-10.4); Platelet Count Result 455 k/mm3 (150-375); Red Blood Count 3.53 M/mm3 (4.6-6.20); Red Cell Distribution Width 11.8 % (11.5-14.5); White Blood Count 8.6 K/mm3 (4.5-10.0)
[2019-10-15 05:07] LABS: Alanine Aminotransferase 26 U/L (4-50); Albumin Level 2.5 g/dL (3.5-5.1); Alkaline Phosphatase 83 U/L (38-126); Anion Gap 6 mmol/L (8-16); Aspartate Amino Transferase 48 U/L (17-59); Bilirubin,Total 0.1 mg/dL (0.2-1.3); Blood Urea Nitrogen 16 mg/dL (9-20); Calcium 8.4 mg/dL (8.4-10.2); Carbon Dioxide 29 mmol/L (22-30); Chloride 92 mmol/L (98-107); Estimated CRCL calculation 97 ml/min; Estimated Glomerular Filt Rate > 60; Glucose 129 mg/dL (75-110); Sodium 127 mmol/L (137-145)
[2019-10-15] MEDS: CENTRAL LINE FLUSH 10 ML IV PUSH ×3 (05:51→21:57)
--- NOTE | 2019-10-15 08:23 | WPDINFPN2 ---
Progress Note: A&P Assessment and Plan (1) Concern about sexually transmitted disease in male without diagnosis: Code(s): Z71.1 - Person with feared health complaint in whom no diagnosis is made Status: Acute Assessment and Plan: 1. AIDS. Depressed CD4 and PJP. He has likely had HIV infection for years 2. Hemorrhoids 3. CAP, due to PJP. 4. Hep C infection with high viral load 5. Resp. failure. 6. R femoral TLC placed 10/11 REC Stop Ctx and azithro. Continue TMP-SMX IV #, also on steroids. Initiate antiretrovirals soon after discharge. Treat Hepatitis C in about 6 months, assuming he responds well to his antiretrovirals. Subjective Date/time seen: 10/15/19 08:23 Interval history: events noted. Opens eyes briefly to voice Exam Narrative: Exam Narrative: afebrile Const: General: no acute distress Eyes: General: appearance normal, both eyes and all related structures Resp: Effort & Inspection: normal respiratory effort Auscultation: no rales, no rhonchi and no wheezes Other: upper airway noise, vesicular Cardio: Rate: regular rate Rhythm: regular rhythm Heart sounds: no gallops and no murmurs GI: Inspection: non-distended GI Palp: Yes Soft to palpation and No Tenderness to palpation present (GI) Skin: General skin exam: no rashes or lesions noted Objective Data Vital Signs Vital Signs: Vital Signs - 24 hr 10/14/19 09:20 10/14/19 09:25 10/14/19 10:00 Temperature 36.6 C Pulse Rate 88 90 98 Respiratory Rate 18 18 18 Blood Pressure 134/93 H Pulse Oximetry 99 10/14/19 11:09 10/14/19 11:30 10/14/19 12:00 Temperature Pulse Rate 91 90 88 Respiratory Rate 18 Blood Pressure 125/73 Pulse Oximetry 98 96 97 10/14/19 13:39 10/14/19 14:00 10/14/19 14:54 Temperature 36.6 C Pulse Rate 92 100 98 Respiratory Rate 18 Blood Pressure 125/73 Pulse Oximetry 96 92 91 10/14/19 15:20 10/14/19 16:00 10/14/19 16:05 Temperature 36.7 C Pulse Rate 95 92 96 Respiratory Rate 18 18 Blood Pressure 131/70 Pulse Oximetry 96 95 10/14/19 17:10 10/14/19 18:00 10/14/19 18:01 Temperature Pulse Rate 92 92 92 Respiratory Rate 18 18 Blood Pressure 136/81 Pulse Oximetry 94 97 10/14/19 18:02 10/14/19 19:14 10/14/19 20:00 Temperature 36.8 C Pulse Rate 92 95 97 Respiratory Rate 18 18 17 Blood Pressure 131/75 Pulse Oximetry 96 10/14/19 20:36 10/14/19 20:55 10/14/19 21:03 Temperature Pulse Rate 94 100 98 Respiratory Rate 19 18 Blood Pressure Pulse Oximetry 96 10/14/19 22:00 10/14/19 23:15 10/15/19 00:00 Temperature 36.8 C Pulse Rate 90 97 90 Respiratory Rate 18 16 Blood Pressure 122/74 126/69 Pulse Oximetry 95 96 95 10/15/19 01:59 10/15/19 02:00 10/15/19 03:55 Temperature Pulse Rate 91 92 87 Respiratory Rate 17 Blood Pressure 133/74 Pulse Oximetry 97 97 98 10/15/19 04:00 10/15/19 05:14 10/15/19 05:35 Temperature 36.8 C Pulse Rate 89 92 92 Respiratory Rate 17 18 18 Blood Pressure 123/70 Pulse Oximetry 97 10/15/19 05:40 10/15/19 06:00 Temperature Pulse Rate 92 92 Respiratory Rate 18 18 Blood Pressure 131/71 Pulse Oximetry 97 Intake/Output Intake/Output: Intake & Output 10/12/19 10/13/19 10/14/19 10/15/19 23:59 23:59 23:59 23:59 Intake Total 4683 3778.2 3373.8 1838 Output Total 1600 3000 3575 1900 Balance 3083 778.2 -201.2 -62 Meds/Results Medications: Active Medications Generic Name Dose Route Start Last Admin Trade Name Freq PRN Reason Stop Dose Admin Albuterol 2.5 mg 10/13/19 10:15 10/14/19 20:47 Albuterol Sulf Neb 2.5mg/0.5ml INHALATION 2.5 mg Q4HRT PRN Administration Shortness Of Breath Enoxaparin Sodium 40 mg 10/05/19 09:00 10/14/19 08:07 Lovenox SUB-Q 40 mg DAILY RASHAWN Administration Famotidine 20 mg 10/02/19 21:00 10/14/19 21:11 Pepcid Iv IV PUSH 20 mg Q12HR RASHAWN Administration Hydrocortisone Acetate 25 mg 10/03/19 13
[2019-10-15] MEDS: ENOXAPARIN 40 MG/0.4 ML SYRINGE SUB-Q (08:28)
[2019-10-15] MEDS: methylPREDNISolone SOD SUCC 40 MG VIAL 30 MG IV PUSH ×2 (08:29→21:56)
[2019-10-15] MEDS: FAMOTIDINE 20 MG/2 ML VIAL IV PUSH ×2 (08:29→21:56)
--- NOTE | 2019-10-15 08:34 | WPDINTPN ---
Progress Note: A&P Assessment and Plan (1) Acute respiratory failure with hypoxia: Code(s): J96.01 - Acute respiratory failure with hypoxia Status: Acute Assessment and Plan: Acute Respiratory failure secondary to pneumonia in an immunocompromised patient, ?PJP pneumonia Continue full mechanical ventilation support to prevent hypoxemia/hypercarbia and end organ damage. ABG and PCXR reviewed. patient on 30% FiO2 and peep of 5. Chest x-ray continues to show diffuse bilateral infiltrates hypoxia has improved significantly Ventilator adjusted, placed patient on ASV mode of ventilation Continue Bronchodilators Will diurese with Lasix 40 mg IV x1 Patient underwent diagnostic bronchoscopy 10/11. BAL was collected and sent for stains and culture which are pending PJP smear and PCR pending continue empiric Bactrim per infectious disease specialist azithromycin and Rocephin discontinued on 10/15/2019 per Infectious Disease specialist Solu-Medrol started 10/12 (2) Pneumonia: Qualifiers: Laterality: bilateral Lung location: unspecified part of lung Pneumonia type: due to unspecified organism Qualified Code(s): J18.9 - Pneumonia, unspecified organism Code(s): J18.9 - Pneumonia, unspecified organism Status: Acute Assessment and Plan: see above (3) Septic shock: Code(s): A41.9 - Sepsis, unspecified organism; R65.21 - Severe sepsis with septic shock Status: Acute Assessment and Plan: resolved and now off of Levophed since 10/12, 5:00 a.m.. IV fluids discontinue as patient has received significant amount of fluid since admission patient fairly positive on his balance hence will discontinue further fluids Patient status post stress dose steroids (4) Suspected COVID-19 virus infection: Code(s): Z20.828 - Contact with and (suspected) exposure to other viral communicable diseases Status: Acute Assessment and Plan: COVID-19 ruled out. SARS-CoV-2 PCR was negative x 2 Patient was on Airborne, Droplet and Contact Isolation which now has been discontinued. (5) AIDS: Code(s): B20 - Human immunodeficiency virus [HIV] disease Status: Acute Assessment and Plan: New diagnosis HIV antibody screen positive Viral load 187K CD4 count is 120 Patient also positive for hepatitis-C Management per infectious disease (6) DVT prophylaxis: Code(s): Z29.9 - Encounter for prophylactic measures, unspecified Status: Acute Assessment and Plan: Lovenox (7) Dietary counseling and surveillance: Code(s): Z71.3 - Dietary counseling and surveillance Status: Acute Assessment and Plan: patient tolerating tube feeds, at goal. No bowel movements noted, will add MiraLax - stress ulcer prophylaxis with Pepcid Additional Plan will discuss with family and updated them Code Status - Full Code Total Critical Care Time - 34 minutes Due to a high probability of clinically significant, life threatening deterioration, the patient required my highest level of preparedness to intervene emergently and I personally spent this critical care time directly and personally managing the patient. This critical care time included obtaining a history; examining the patient; pulse oximetry; ordering and review of studies; arranging urgent treatment with development of a management plan; evaluation of patient's response to treatment; frequent reassessment; and discussions with other providers. It was exclusive of separately billable procedures and treating other patients and teaching time. Please see Assessment and Plan section and the rest of the note for further information on patient assessment and treatment Subjective Date/time seen: 10/15/19 08:34 Interval history: Reason for Consult: PJP pneumonia, acute respiratory failure, septic shock, acute new onset HIV and hepatitis-C - off Levophed since 10/13/2019 at 5:00 a.m.
[2019-10-15] MEDS: polyethylene glycoL 3350 17 GM POWD.PACK PO (11:19)
[2019-10-15] MEDS: FUROSEMIDE INJ 40 MG/4 ML VIAL IV PUSH (11:19)
[2019-10-15] MEDS: METOCLOPRAMIDE HCL INJ 10 MG/2 ML VIAL IV PUSH ×2 (11:19→17:27)
--- NOTE | 2019-10-15 13:21 | PCDIET ---
Nutrition Follow-Up Complete: Nutrition Diagnosis: Inadequate oral intake related to pneumonia as evidenced by poor po intake and weight loss of 23 lbs. Nutrition Goal: Intake of at least 75% of meals/supplements Goal not met. New Goal: Patient to meet estimated nutritional needs. Patient remains intubated on Vital 1.5. Previously tolerating well, but held earlier today for 400mL residual, per nursing. MD added Reglan and Miralax. Last recorded weight is 51.3 kg. Requested RN obtain new weight. Bowel Motility: No documented BM x several days. Miralax added. Labs Reviewed: Hgb (10.1), Hct (29.2), Glu (129), Na (127), Alb (2.5) Meds Noted: Septra, Albuterol, Fentanyl, Solu Medrol, Reglan, Versed, Pepcid, Atrovent, Levophed, Miralax Additional Notes: No documented skin breakdown. Nutrition Monitoring and Evaluation: Follow up every Tuesday/Tuesday. Follow daily in ICU rounds.
[2019-10-15 13:28] LABS: Glucose Point of Care 149 (65-105)
[2019-10-15] MEDS: IPRATROPIUM BR 0.02% INH SOLN 0.5 MG/2.5 ML VIAL INHALATION (14:42)
[2019-10-15] MEDS: ALBUTEROL SULFATE NEB 2.5 MG/0.5 ML INH INHALATION (14:42)
--- NOTE | 2019-10-15 16:42 | PM.IMPN ---
Progress Note: A&P Assessment and Plan (1) Pneumonia: Qualifiers: Laterality: bilateral Lung location: unspecified part of lung Pneumonia type: due to unspecified organism Qualified Code(s): J18.9 - Pneumonia, unspecified organism Code(s): J18.9 - Pneumonia, unspecified organism Status: Acute Assessment and Plan: Initial CXR shows diffuse lung disease, likely pneumonia. Initial CXR, labs, and clinical picture were highly suggestive of COVID-19, however patient had 2 negative tests. His symptoms had been ongoing approximately [address] showed diffuse groundglass opacities throughout bilateral lung jackman. HIV screen drawn to evaluate for possible pneumonocystis pneumonia; found to be reactive. fever, elevated wcc. Repeat CXR 10/07 shows stable diffuse lung disease concerning for pneumocystis pneumonia. from previous notes unfortunately pt intubated last night due to respiratory failure. Sp bronchoschopy. reintubae on 10/1210/15/19 16:42 patient is a 44 year male HIV and hepatitis C on ventilator most likely secondary to PJP pneumonia patient seen by Dr. Zuniga started the patient on IV Bactrim 10/18, and IV steroids, discussed with corporate safety director will continue present management and plan is to wean the patient off ventilator and further recommendation to follow, once patient is stable Dr. Zuniga is recommended to start the patient on antiviral for HIV and down the road treatment for hepatitis C after 6 months. (2) Concern about sexually transmitted disease in male without diagnosis: Code(s): Z71.1 - Person with feared health complaint in whom no diagnosis is made Status: Acute Assessment and Plan: Reactive HIV screening 10/03. Patient has both receptive and penetrative sex with males. Approximately 8 months ago, he had protected sex using a condom with an HIV positive male who he reports had undetectable viral load. Reactive screening has been discussed with him. CD4 absolute is 120. (3) Sinus tachycardia: Code(s): R00.0 - Tachycardia, unspecified Status: Acute Assessment and Plan: Review of telemetry reveals sinus tachycardia, no alarms overnight; asymptomatic. Likely multifactorial given fever, infection, and pain. TSH is wnl. He is not orthostatic. No pulmonary embolism seen on CTA. Echo performed on 10/05 with EF >70%, no wall abnormality, severe concentric hypertrophy, and possible HOCM. (4) Hypertension: Qualifiers: Hypertension type: essential hypertension Qualified Code(s): I10 - Essential (primary) hypertension Code(s): I10 - Essential (primary) hypertension Status: Acute Assessment and Plan: Monitor blood pressures closely (5) Hemorrhoids: Qualifiers: Hemorrhoid type: unspecified Qualified Code(s): K64.9 - Unspecified hemorrhoids Code(s): K64.9 - Unspecified hemorrhoids Status: Acute Assessment and Plan: Secondary to straining. (6) Emotional stress: Code(s): R45.7 - State of emotional shock and stress, unspecified Status: Acute Assessment and Plan: Unfortunately the patient's father on 10/04 due to complications of COVID-19 and he was informed by his family while hospitalized. depressed breavement. Subjective Date/time seen: 10/15/19 16:42 patient is a 44 year male HIV and hepatitis C on ventilator most likely secondary to PJP pneumonia patient seen by Dr. Zuniga started the patient on IV Bactrim 10/18, and IV steroids, discussed with corporate safety director will continue present management and plan is to wean the patient off ventilator and further recommendation to follow, once patient is stable Dr. Zuniga is recommended to start the pat
[2019-10-15 17:48] LABS: Glucose Point of Care 114 (65-105)
--- NOTE | 2019-10-15 19:46 | PM.PNPUL ---
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 FiO2 is lower, 45%, PEEP 8, Appreciate Dr Caruso sending PCP PCR; other specimens are pending. Samples which were sent for cell count, Gram stain C&S, fungal and AFB. Continue antibiotics. (2) Acute respiratory failure with hypoxia: Code(s): J96.01 - Acute respiratory failure with hypoxia Status: Acute Assessment and Plan: As above, O2 requirement is still significant with 45% and PEEP 8 cm. Acid base status is normal. A-a gradient is better. He is turning the corner and may be able to extubate tomorrow. Subjective Date/time seen: 10/15/19 19:46 This 44 yo man is seen in follow up for pneumonia, had bronchoscopy Oct 11. Review of Systems Review of Systems: All systems reviewed & are unremarkable except as noted in HPI and below (HPI. weight loss 11 lb in 2 months. ) ROS unobtainable: Yes unobtainable due to endotracheal tube Eyes: Eyes: Reports no additional eye complaints ENT: Denies dysphagia Cardiovascular: Cardiovascular: Reports dyspnea Respiratory: Respiratory: Reports cough, Denies hemoptysis and Reports dyspnea Gastrointestinal: Gastrointestinal: Denies change in bowel habits, Denies dysphagia and Denies vomiting Genitourinary: Genitourinary: Denies genital pain Exam Narrative: Exam Narrative: lightly sedated, responds to voice, opens his eyes Const: General: no acute distress (intubated) Orientation/consciousness: patient oriented x3 HENMT: Head: normal to inspection Ears: hearing grossly normal bilaterally General nose exam: Normal external nose present Face and sinus: normal facial exam Mouth: Yes Normal oral and palatal mucosa present Eyes: General: appearance normal, both eyes and all related structures Neck: Neck: no JVD Lymphatic: lymphadenopathy not noted Resp: Auscultation: diminished lung sounds Other: few crackles left anterior chest; no wheezes Cardio: Rate: regular rate Rhythm: regular rhythm Heart sounds: S1 normal heart sound present, S2 normal heart sound present, no gallops, no murmurs and no rubs GI: Auscultation: Hypoactive bowel sounds present Skin: General skin exam: normal color and no rashes or lesions noted Neuro: General: patient oriented x3 and moves all extremities Speech: normal speech Extrem: General: no clubbing, cyanosis or edema Psych: Mental Status: other ( sedated, nonverbal) Objective Data Vital Signs Vital Signs: Vital Signs - 24 hr 10/14/19 20:00 10/14/19 20:36 10/14/19 20:55 Temperature 36.8 C Pulse Rate 97 94 100 Respiratory Rate 17 19 Blood Pressure 131/75 Pulse Oximetry 96 96 10/14/19 21:03 10/14/19 22:00 10/14/19 23:15 Temperature Pulse Rate 98 90 97 Respiratory Rate 18 18 Blood Pressure 122/74 Pulse Oximetry 95 96 10/15/19 00:00 10/15/19 01:59 10/15/19 02:00 Temperature 36.8 C Pulse Rate 90 91 92 Respiratory Rate 16 17 Blood Pressure 126/69 133/74 Pulse Oximetry 95 97 97 10/15/19 03:55 10/15/19 04:00 10/15/19 05:14 Temperature 36.8 C Pulse Rate 87 89 92 Respiratory Rate 17 18 Blood Pressure 123/70 Pulse Oximetry 98 97 10/15/19 05:
[2019-10-16] VITALS (32 sets, daily range): BP systolic 128–156; BP diastolic 72–98; PULSE 92–132; RESP 12–28; TEMP 36.6–37.1; O2SAT 93–97
[2019-10-16 00:16] LABS: Glucose Point of Care 107 (65-105)
[2019-10-16] MEDS: METOCLOPRAMIDE HCL INJ 10 MG/2 ML VIAL IV PUSH ×4 (00:16→17:03)
[2019-10-16 04:23] LABS: Alveolar/Arterial O2 Gradient 98.1 mmHg; Base Excess ABG 4.6 mEq/l (+/-2.0); Carboxyhemoglobin 0.4 % THb (0-2.0); Fractional Inspired Oxygen 35 %; HCO3 ABG 29.7 mEq/l (22.0-26.0); Methemoglobin ABG 0.3 %THb (0-1.5); Oxygen Saturation ABG 97.5 % (95.0-100.0); PCO2 ABG 46.2 mmHg (35.0-45.0); PO2 ABG 97.7 mmHg (80.0-100.0); PO2 FiO2 Ratio Arterial Blood 2.79 %; Reduced Hemoglobin 3.3 %THb (0-5.0); Total Hemoglobin 12.5 g/dL (12.0-18.0); pH ABG 7.426 (7.350-7.450)
[2019-10-16 04:24] LABS: Device VENTILATOR; Modified Allen's Test Pass; Site Drawn RIGHT RADIAL
[2019-10-16 04:25] LABS: Arterial Blood Gas PEEP 5 cmH2O; Arterial Blood Gas Vent Mode ASV
[2019-10-16 04:58] LABS: Basophils Percent Auto 0.1 % (0.2-1.2); Hematocrit 34.5 % (42.0-52.0); Hemoglobin 11.7 g/dL (14.0-18.0); Immature Granulocyte Absolute 0.21 K/mm3 (0.00-0.031); Immature Granulocyte Percent A 2.2 % (0-0.5); Lymphocytes Absolute Auto 0.55 K/mm3 (0.9-3.2); Lymphocytes Percent Auto 5.9 % (18.3-44.2); Mean Corpuscular HGB Conc 33.9 g/dl (32-36); Mean Corpuscular Hemoglobin 28.7 pg (26-34); Mean Corpuscular Volume 84.6 fl (80-100); Mean Platelet Volume 9.1 fl (7.4-10.4); Monocytes Absolute Auto 0.4 K/mm3 (0.1-0.6); Monocytes Percent Auto 3.7 % (2.6-8.5); Neutrophils Absolute Auto 8.2 K/mm3 (1.3-6.7); Neutrophils Percent Auto 88.1 % (45.5-73.1); Platelet Count Result 505 k/mm3 (150-375); Red Blood Count 4.08 M/mm3 (4.6-6.20); Red Cell Distribution Width 11.9 % (11.5-14.5); White Blood Count 9.3 K/mm3 (4.5-10.0)
[2019-10-16 05:10] LABS: Alanine Aminotransferase 32 U/L (4-50); Albumin Level 2.8 g/dL (3.5-5.1); Alkaline Phosphatase 91 U/L (38-126); Anion Gap 5 mmol/L (8-16); Aspartate Amino Transferase 44 U/L (17-59); Bilirubin,Total 0.2 mg/dL (0.2-1.3); Blood Urea Nitrogen 15 mg/dL (9-20); Calcium 8.8 mg/dL (8.4-10.2); Carbon Dioxide 33 mmol/L (22-30); Chloride 91 mmol/L (98-107); Estimated CRCL calculation 74 ml/min; Estimated Glomerular Filt Rate > 60; Glucose 150 mg/dL (75-110); Magnesium 1.9 mg/dL (1.6-2.3); Sodium 129 mmol/L (137-145)
[2019-10-16] MEDS: CENTRAL LINE FLUSH 10 ML IV PUSH ×2 (05:22→14:53)
[2019-10-16] MEDS: polyethylene glycoL 3350 17 GM POWD.PACK PO (08:30)
[2019-10-16] MEDS: ENOXAPARIN 40 MG/0.4 ML SYRINGE SUB-Q (08:30)
[2019-10-16] MEDS: FAMOTIDINE 20 MG/2 ML VIAL IV PUSH ×2 (08:30→21:18)
[2019-10-16] MEDS: methylPREDNISolone SOD SUCC 40 MG VIAL 30 MG IV PUSH ×2 (08:30→21:18)
[2019-10-16] MEDS: FUROSEMIDE INJ 40 MG/4 ML VIAL IV PUSH (10:43)
--- NOTE | 2019-10-16 11:32 | PCNFU ---
Nutrition Follow-Up Complete: Inadequate Oral Intake as related to pneumonia as evidenced by poor po intake and weight loss of 23 ibs. Goal: Patient to meet estimated needs Goal in progress, as tube feedings advancing toward goal rate. Pt current nutrition is Vital 1.5 at 40 ml/hr with goal of 50 ml/hr. Receiving 30 ml. water flush ever 4 hours. Nurse reports 40 ml. residual but tolerating tube feeding well. Nutrition recommendation: Agree with current recommendations Last recorded weight is 49.6 kg. Patient had 1.7 kg weight loss since yesterday (10/15/19) may be related to tube feedings being held. Note I's and O's are negative. Will monitor. Bowel Motility: no recent bowel movement reported - patient on Miralax Labs Reviewed: Hgb (11.7) Hct (34.5) Alb (2.8) Na (129) Glu (150) Meds Noted: Albuterol, Fentanyl, Solu Medrol, Reglan, Versed, Pepcid, Atrovent, Levophed, Miralax, Lasix, Zofran Additional Notes: Skin is WNL. Continue same goal. Nutrition Monitoring and Evaluation: Follow up every Tuesday/Tuesday. Follow daily in ICU rounds.
--- NOTE | 2019-10-16 11:42 | WPDINTPN ---
Progress Note: A&P Assessment and Plan (1) Acute respiratory failure with hypoxia: Code(s): J96.01 - Acute respiratory failure with hypoxia Status: Acute Assessment and Plan: Acute Respiratory failure secondary to pneumonia in an immunocompromised patient, ?PJP pneumonia Continue full mechanical ventilation support to prevent hypoxemia/hypercarbia and end organ damage. ABG and PCXR reviewed. patient on 30% FiO2 and peep of 5. Chest x-ray continues to show diffuse bilateral infiltrates hypoxia has improved significantly On ASV mode of ventilation will try patient on pressure support ventilation 02/01 and decrease support as tolerated Continue Bronchodilators Will diurese with Lasix 40 mg IV x1 Patient underwent diagnostic bronchoscopy 10/11. BAL was collected and sent for stains and culture which are pending PJP direct fluorescent antibody was positive pneumocystis PCR pending continue Bactrim per infectious disease specialist azithromycin and Rocephin discontinued on 10/15/2019 per Infectious Disease specialist Solu-Medrol started 10/12 patient diuresed well yesterday with Lasix, will repeat diuretics (2) Pneumonia: Qualifiers: Laterality: bilateral Lung location: unspecified part of lung Pneumonia type: due to unspecified organism Qualified Code(s): J18.9 - Pneumonia, unspecified organism Code(s): J18.9 - Pneumonia, unspecified organism Status: Acute Assessment and Plan: see above (3) Septic shock: Code(s): A41.9 - Sepsis, unspecified organism; R65.21 - Severe sepsis with septic shock Status: Acute Assessment and Plan: RESOLVED: off of Levophed since 10/12, 5:00 a.m.. IV fluids discontinue as patient has received significant amount of fluid since admission patient fairly positive on his balance hence will discontinue further fluids Patient status post stress dose steroids (4) Suspected COVID-19 virus infection: Code(s): Z20.828 - Contact with and (suspected) exposure to other viral communicable diseases Status: Acute Assessment and Plan: COVID-19 ruled out. SARS-CoV-2 PCR was negative x 2 Patient was on Airborne, Droplet and Contact Isolation which now has been discontinued. (5) AIDS: Code(s): B20 - Human immunodeficiency virus [HIV] disease Status: Acute Assessment and Plan: New diagnosis HIV antibody screen positive Viral load 187K CD4 count is 120 Patient also positive for hepatitis-C influenza a and B PCR pending urine Legionella and pneumococcal antigen: not detected Management per infectious disease (6) DVT prophylaxis: Code(s): Z29.9 - Encounter for prophylactic measures, unspecified Status: Acute Assessment and Plan: Lovenox (7) Dietary counseling and surveillance: Code(s): Z71.3 - Dietary counseling and surveillance Status: Acute Assessment and Plan: patient tolerating tube feeds, at goal. No bowel movements noted, continue MiraLax - stress ulcer prophylaxis with Pepcid Additional Plan discussed with brother and updated with patient's condition and plan of care. I answered all questions Code Status - Full Code Total Critical Care Time - 32 minutes Due to a high probability of clinically significant, life threatening deterioration, the patient required my highest level of preparedness to intervene emergently and I personally spent this critical care time directly and personally managing the patient. This critical care time included obtaining a history; examining the patient; pulse oximetry; ordering and review of studies; arranging urgent treatment with development of a management plan; evaluation of patient's response to treatment; frequent reassessment; and discussions with other providers. It was exclusive of separately billable procedures and treating other patients and teaching time. Please see Assessment and Plan section and the r
--- NOTE | 2019-10-16 12:12 | PCNSR ---
On 10/16/19, the student, Khoi Cooney, provided care and completed [facility] documentation on this patient. I have reviewed the student's documentation and agree with the findings.
[2019-10-16 12:31] LABS: Glucose Point of Care 119 (65-105)
--- NOTE | 2019-10-16 12:37 | WPDINFPN2 ---
Progress Note: A&P Assessment and Plan (1) Concern about sexually transmitted disease in male without diagnosis: Code(s): Z71.1 - Person with feared health complaint in whom no diagnosis is made Status: Acute Assessment and Plan: 1. AIDS. Depressed CD4 and PJP. He has likely had HIV infection for years 2. Hemorrhoids 3. CAP, due to PJP. Remains on vent support, but possibly extubate soon 4. Hep C infection with high viral load 5. Resp. failure. 6. R femoral TLC placed 10/11 REC Off Ctx and azithro. Continue TMP-SMX IV #, also on steroids. Initiate antiretrovirals soon after discharge. Treat Hepatitis C in about 6 months, assuming he responds well to his antiretrovirals. Subjective Date/time seen: 10/16/19 12:37 Interval history: opens eyes to stimulus, makes no attempt communicate Exam Narrative: Exam Narrative: afebrile Const: General: no acute distress Eyes: General: appearance normal, both eyes and all related structures Resp: Effort & Inspection: normal respiratory effort Auscultation: clear to auscultation bilaterally Cardio: Rate: tachycardic Rhythm: regular rhythm Heart sounds: no gallops and no murmurs GI: Inspection: non-distended GI Palp: Yes Soft to palpation and No Tenderness to palpation present (GI) Skin: General skin exam: normal color and no rashes or lesions noted Objective Data Vital Signs Vital Signs: Vital Signs - 24 hr 10/15/19 13:22 10/15/19 14:00 10/15/19 14:43 Temperature 36.7 C Pulse Rate 107 H 106 H 109 H Respiratory Rate 20 17 24 H Blood Pressure 133/73 Pulse Oximetry 96 10/15/19 14:50 10/15/19 14:51 10/15/19 15:25 Temperature Pulse Rate 105 H 108 H 100 Respiratory Rate 24 H 24 H Blood Pressure Pulse Oximetry 96 10/15/19 16:00 10/15/19 17:07 10/15/19 17:55 Temperature 36.6 C Pulse Rate 97 95 101 H Respiratory Rate 13 13 Blood Pressure 138/90 Pulse Oximetry 96 97 10/15/19 17:56 10/15/19 18:00 10/15/19 20:00 Temperature 36.7 C 36.6 C Pulse Rate 99 99 103 H Respiratory Rate 13 20 15 Blood Pressure 167/108 H 140/76 Pulse Oximetry 96 96 10/15/19 20:58 10/15/19 22:00 10/15/19 23:25 Temperature 36.8 C Pulse Rate 102 H 102 H 101 H Respiratory Rate 18 Blood Pressure 142/77 H Pulse Oximetry 96 94 95 10/16/19 00:00 10/16/19 00:33 10/16/19 00:34 Temperature 36.8 C Pulse Rate 94 95 94 Respiratory Rate 12 16 16 Blood Pressure 141/93 H Pulse Oximetry 95 10/16/19 02:00 10/16/19 02:31 10/16/19 04:00 Temperature 36.6 C 36.7 C Pulse Rate 92 101 H 99 Respiratory Rate 16 18 Blood Pressure 154/90 H 137/83 Pulse Oximetry 95 94 97 10/16/19 04:14 10/16/19 05:17 10/16/19 05:18 Temperature Pulse Rate 97 100 98 Respiratory Rate 16 18 Blood Pressure Pulse Oximetry 97 10/16/19 06:00 10/16/19 08:00 10/16/19 08:40 Temperature 36.6 C 36.8 C Pulse Rate 117 H 129 H 122 H Respiratory Rate 18 18 Blood Pressure 154/72 H 156/89 H Pulse Oximetry 95 93 10/16/19 09:38 10/16/19 10:00 10/16/19 11:10 Temperature 37.0 C Pulse Rate 128 H 120 H 123 H Respiratory Rate 18 17 Blood Pressure 131/81 Pulse Oximetry 94 10/16/19 12:00 Temperature 37.1 C Pulse Rate 120 H Respiratory Rate 14 Blood Pressure 140/98 H Pulse Oximetry 94 Intake/Output Intake/Output: Intake & Output 10/13/19 10/14/19 10/15/19 10/16/19 23:59 23:59 23:59 23:59 Intake Total 3778.2 3373.8 3335 1879 Output Total 3000 3575 5300 4050 Balance 778.2 -201.2 -1965 -2171 Meds/Results Medications: Active Medications Generic Name Dose Route Start Last Admin Trade Name Freq PRN Reason Stop Dose Admin Albuterol 2.5 mg 10/13/19 10:15 10/15/19 14:42 Albuterol Sulf Neb 2.5mg/0.5ml INHALATION 2.5 mg Q4HRT PRN Administration Shortness Of Breath Enoxaparin Sodium 40 mg 10/05/19 09:00 10/16/19 08:30 Lovenox SUB-Q 40 mg DAILY RASHAWN Administration Famotidine 20 mg 10/01/
--- NOTE | 2019-10-16 13:59 | PM.IMPN ---
Progress Note: A&P Assessment and Plan (1) Pneumonia: Qualifiers: Laterality: bilateral Lung location: unspecified part of lung Pneumonia type: due to unspecified organism Qualified Code(s): J18.9 - Pneumonia, unspecified organism Code(s): J18.9 - Pneumonia, unspecified organism Status: Acute Assessment and Plan: Initial CXR shows diffuse lung disease, likely pneumonia. Initial CXR, labs, and clinical picture were highly suggestive of COVID-19, however patient had 2 negative tests. His symptoms had been ongoing approximately [address] showed diffuse groundglass opacities throughout bilateral lung jackman. HIV screen drawn to evaluate for possible pneumonocystis pneumonia; found to be reactive. fever, elevated wcc. Repeat CXR 10/07 shows stable diffuse lung disease concerning for pneumocystis pneumonia. from previous notes unfortunately pt intubated last night due to respiratory failure. Sp bronchoschopy. reintubae on 10/1210/16/19 13:59 patient is a 44 year male HIV and hepatitis C on ventilator most likely secondary to PJP pneumonia patient seen by Dr. Zuniga started the patient on IV Bactrim 10/18, and IV steroids, discussed with paper rewinder operator will continue present management and plan is to wean the patient off ventilator and further recommendation to follow, once patient is stable Dr. Zuniga is recommended to start the patient on antiviral for HIV and down the road treatment for hepatitis C after 6 months. today is patient is off sedation in an attempts to wean patient of the ventilator. (2) Concern about sexually transmitted disease in male without diagnosis: Code(s): Z71.1 - Person with feared health complaint in whom no diagnosis is made Status: Acute Assessment and Plan: Reactive HIV screening 10/03. Patient has both receptive and penetrative sex with males. Approximately 8 months ago, he had protected sex using a condom with an HIV positive male who he reports had undetectable viral load. Reactive screening has been discussed with him. CD4 absolute is 120. (3) Sinus tachycardia: Code(s): R00.0 - Tachycardia, unspecified Status: Acute Assessment and Plan: Review of telemetry reveals sinus tachycardia, no alarms overnight; asymptomatic. Likely multifactorial given fever, infection, and pain. TSH is wnl. He is not orthostatic. No pulmonary embolism seen on CTA. Echo performed on 10/05 with EF >70%, no wall abnormality, severe concentric hypertrophy, and possible HOCM. (4) Hypertension: Qualifiers: Hypertension type: essential hypertension Qualified Code(s): I10 - Essential (primary) hypertension Code(s): I10 - Essential (primary) hypertension Status: Acute Assessment and Plan: Monitor blood pressures closely (5) Hemorrhoids: Qualifiers: Hemorrhoid type: unspecified Qualified Code(s): K64.9 - Unspecified hemorrhoids Code(s): K64.9 - Unspecified hemorrhoids Status: Acute Assessment and Plan: Secondary to straining. (6) Emotional stress: Code(s): R45.7 - State of emotional shock and stress, unspecified Status: Acute Assessment and Plan: Unfortunately the patient's father on 10/04 due to complications of COVID-19 and he was informed by his family while hospitalized. depressed breavement. Subjective Date/time seen: 10/16/19 13:59 patient is a 44 year male HIV and hepatitis C on ventilator most likely secondary to PJP pneumonia patient seen by Dr. Zuniga started the patient on IV Bactrim 10/18, and IV steroids, discussed with paper rewinder operator will continue present management and plan is to wean the patient off ventilator and further recommendation to follow, once patient is
--- NOTE | 2019-10-16 15:22 | PM.PNPUL ---
Progress Note: A&P Assessment and Plan (1) Pneumocystis jiroveci pneumonia: Code(s): B59 - Pneumocystosis Status: Acute Assessment and Plan: continue Bactrim and systemic steroids. ID managing antibiotics (2) Pneumocystosis with HIV infection: Code(s): B20 - Human immunodeficiency virus [HIV] disease; B59 - Pneumocystosis Status: Acute (3) Acute respiratory failure with hypoxia: Code(s): J96.01 - Acute respiratory failure with hypoxia Status: Acute Assessment and Plan: continue weaning efforts. Tachcardic on PSV but no respiratory distress. tachycardia may be due to underlying infection. Watch for fever, signs of sepsis. Get Echo if not already done this admission. Subjective Date/time seen: 10/16/19 15:22 Interval history: Intubated, undergoing weaning trial this morning with PSV 12, PEEP 5, looks comfortable but diaphoretic and tachycardic, no fever. Has HIV/AIDS with PJP pneumonia Review of Systems Review of Systems: All systems reviewed & are unremarkable except as noted in HPI and below Exam Const: General: comfortable Other: diaphortetic Neck: Neck: supple and no JVD Resp: Auscultation: clear to auscultation bilaterally, no crackles, no rales and no rhonchi Cardio: Rate: tachycardic Heart sounds: no murmurs GI: Auscultation: normal bowel sounds Neuro: Other: intubated and sedated Extrem: General: normal to inspection and no edema Objective Data Vital Signs Vital Signs: Vital Signs - 24 hr 10/15/19 15:25 10/15/19 16:00 10/15/19 17:07 Temperature 36.6 C Pulse Rate 100 97 95 Respiratory Rate 24 H 13 Blood Pressure 138/90 Pulse Oximetry 96 97 10/15/19 17:55 10/15/19 17:56 10/15/19 18:00 Temperature 36.7 C Pulse Rate 101 H 99 99 Respiratory Rate 13 13 20 Blood Pressure 167/108 H Pulse Oximetry 96 10/15/19 20:00 10/15/19 20:58 10/15/19 22:00 Temperature 36.6 C 36.8 C Pulse Rate 103 H 102 H 102 H Respiratory Rate 15 18 Blood Pressure 140/76 142/77 H Pulse Oximetry 96 96 94 10/15/19 23:25 10/16/19 00:00 10/16/19 00:33 Temperature 36.8 C Pulse Rate 101 H 94 95 Respiratory Rate 12 16 Blood Pressure 141/93 H Pulse Oximetry 95 95 10/16/19 00:34 10/16/19 02:00 10/16/19 02:31 Temperature 36.6 C Pulse Rate 94 92 101 H Respiratory Rate 16 16 Blood Pressure 154/90 H Pulse Oximetry 95 94 10/16/19 04:00 10/16/19 04:14 10/16/19 05:17 Temperature 36.7 C Pulse Rate 99 97 100 Respiratory Rate 18 16 Blood Pressure 137/83 Pulse Oximetry 97 97 10/16/19 05:18 10/16/19 06:00 10/16/19 08:00 Temperature 36.6 C 36.8 C Pulse Rate 98 117 H 129 H Respiratory Rate 18 18 18 Blood Pressure 154/72 H 156/89 H Pulse Oximetry 95 10/16/19 08:40 10/16/19 09:38 10/16/19 10:00 Temperature 37.0 C Pulse Rate 122 H 128 H 120 H Respiratory Rate 18 Blood Pressure 131/81 Pulse Oximetry 93 94 10/16/19 11:10 10/16/19 12:00 10/16/19 14:00 Temperature 37.1 C 36.9 C Pulse Rate 123 H 128 H 114 H Respiratory Rate 17 14 18 Blood Pressure 140/98 H 132/91 H Pulse Oximetry 94 95 Intake/Output Intake/Output: Intake & Output 10/13/19 10/14/19 10/15/19 10/16/19 23:59 23:59 23:59 23:59 Intake Total 3778.2 3373.8 3335 2398 Output Total 3000 3575 5300 4050 Balance 778.2 -201.2 -1965 -1652 Meds/Results Medications: Active Medications Generic Name Dose Route Start Last Admin Trade Name Freq PRN Reason Stop Dose Admin Albuterol 2.5 mg 10/13/19 10:15 10/15/19 14:42 Albuterol Sulf Neb 2.5mg/0.5ml INHALATION 2.5 mg Q4HRT PRN Administration Shortness Of Breath Enoxaparin Sodium 40 mg 10/05/19 09:00 10/16/19 08:30 Lovenox SUB-Q 40 mg DAILY RASHAWN Administration Famotidine 20 mg 10/02/19 21:00 10/16/19 08:30 Pepcid Iv IV PUSH 20 mg Q12HR RASHAWN Administration Hydralazine HCl 10 mg 10/15/19 18:23 Apresoline Hcl Inj IV PUSH Q4HR PRN Blo
[2019-10-17] VITALS (29 sets, daily range): BP systolic 120–173; BP diastolic 77–110; PULSE 101–149; RESP 13–27; TEMP 36.8–37.1; O2SAT 84–100
[2019-10-17] MEDS: CENTRAL LINE FLUSH 10 ML IV PUSH ×4 (01:06→21:50)
[2019-10-17] MEDS: METOCLOPRAMIDE HCL INJ 10 MG/2 ML VIAL IV PUSH ×2 (01:07→05:19)
[2019-10-17] MEDS: IPRATROPIUM BR 0.02% INH SOLN 0.5 MG/2.5 ML VIAL INHALATION (02:16)
[2019-10-17] MEDS: ALBUTEROL SULFATE NEB 2.5 MG/0.5 ML INH INHALATION (02:16)
[2019-10-17 04:26] LABS: Alveolar/Arterial O2 Gradient 102.1 mmHg; Base Excess ABG 7.1 mEq/l (+/-2.0); Carboxyhemoglobin 1.2 % THb (0-2.0); Fractional Inspired Oxygen 35 %; HCO3 ABG 32.8 mEq/l (22.0-26.0); Methemoglobin ABG 0.5 %THb (0-1.5); Oxygen Content ABG 21.9 %vol (16.0-22.0); Oxygen Saturation ABG 97.1 % (95.0-100.0); Oxyhemoglobin 94.7 % THb (90.0-100.0); PCO2 ABG 49.1 mmHg (35.0-45.0); PO2 ABG 90.4 mmHg (80.0-100.0); PO2 FiO2 Ratio Arterial Blood 2.58 %; Reduced Hemoglobin 3.6 %THb (0-5.0); Total Hemoglobin 16.4 g/dL (12.0-18.0); pH ABG 7.442 (7.350-7.450)
[2019-10-17 04:27] LABS: Device VENTILATOR; Site Drawn LEFT BRACHIAL
[2019-10-17 04:28] LABS: Arterial Blood Gas PEEP 5 cmH2O; Arterial Blood Gas Vent Mode ASV
[2019-10-17 05:47] LABS: Basophils Absolute Auto 0.1 K/mm3 (0.0-0.1); Basophils Percent Auto 0.5 % (0.2-1.2); Eosinophils Percent Auto 0.2 % (0-4.4); Hematocrit 36.3 % (42.0-52.0); Hemoglobin 12.5 g/dL (14.0-18.0); Immature Granulocyte Absolute 0.62 K/mm3 (0.00-0.031); Immature Granulocyte Percent A 5.7 % (0-0.5); Lymphocytes Absolute Auto 0.81 K/mm3 (0.9-3.2); Lymphocytes Percent Auto 7.4 % (18.3-44.2); Mean Corpuscular HGB Conc 34.4 g/dl (32-36); Mean Corpuscular Volume 84.2 fl (80-100); Monocytes Absolute Auto 0.7 K/mm3 (0.1-0.6); Monocytes Percent Auto 6.3 % (2.6-8.5); Neutrophils Absolute Auto 8.8 K/mm3 (1.3-6.7); Neutrophils Percent Auto 79.9 % (45.5-73.1); Nucleated Red Blood Cells Perc 0.3 % (0.0-0.2); Platelet Count Result 541 k/mm3 (150-375); Red Blood Count 4.31 M/mm3 (4.6-6.20); Red Cell Distribution Width 11.9 % (11.5-14.5)
[2019-10-17 06:04] LABS: Alanine Aminotransferase 37 U/L (4-50); Alkaline Phosphatase 100 U/L (38-126); Anion Gap 4 mmol/L (8-16); Aspartate Amino Transferase 41 U/L (17-59); Bilirubin,Total 0.2 mg/dL (0.2-1.3); Blood Urea Nitrogen 16 mg/dL (9-20); Calcium 8.9 mg/dL (8.4-10.2); Carbon Dioxide 36 mmol/L (22-30); Chloride 86 mmol/L (98-107); Estimated CRCL calculation 72 ml/min; Estimated Glomerular Filt Rate > 60; Glucose 116 mg/dL (75-110); Magnesium 2.1 mg/dL (1.6-2.3); Potassium 5.5 mmol/L (3.4-5.0); Sodium 126 mmol/L (137-145)
--- NOTE | 2019-10-17 07:00 | WPDINTPN ---
Progress Note: A&P Assessment and Plan (1) Acute respiratory failure with hypoxia: Code(s): J96.01 - Acute respiratory failure with hypoxia Status: Acute Assessment and Plan: Acute Respiratory failure secondary to PJP pneumonia in a newly diagnosed AIDS patient Continue full mechanical ventilation support to prevent hypoxemia/hypercarbia and end organ damage. ABG and PCXR reviewed. will try weaning trial today Chest x-ray continues to show diffuse bilateral infiltrates hypoxia has improved significantly Continue Bronchodilators Patient underwent diagnostic bronchoscopy 10/11. BAL was collected and sent for stains and culture which are pending PJP direct fluorescent antibody was positive pneumocystis PCR pending continue Bactrim per infectious disease specialist azithromycin and Rocephin discontinued on 10/15/2019 per Infectious Disease specialist Solu-Medrol started 10/12 (2) Pneumonia: Qualifiers: Laterality: bilateral Lung location: unspecified part of lung Pneumonia type: due to unspecified organism Qualified Code(s): J18.9 - Pneumonia, unspecified organism Code(s): J18.9 - Pneumonia, unspecified organism Status: Acute Assessment and Plan: see above (3) Septic shock: Code(s): A41.9 - Sepsis, unspecified organism; R65.21 - Severe sepsis with septic shock Status: Acute Assessment and Plan: RESOLVED: off of Levophed since 10/12, 5:00 a.m.. IV fluids discontinue as patient has received significant amount of fluid since admission patient fairly positive on his balance hence will discontinue further fluids Patient status post stress dose steroids (4) Suspected COVID-19 virus infection: Code(s): Z20.828 - Contact with and (suspected) exposure to other viral communicable diseases Status: Acute Assessment and Plan: COVID-19 ruled out. SARS-CoV-2 PCR was negative x 2 Patient was on Airborne, Droplet and Contact Isolation which now has been discontinued. (5) AIDS: Code(s): B20 - Human immunodeficiency virus [HIV] disease Status: Acute Assessment and Plan: New diagnosis HIV antibody screen positive Viral load 187K CD4 count is 120 Patient also positive for hepatitis-C influenza a and B PCR negative urine Legionella and pneumococcal antigen: not detected Management per infectious disease (6) DVT prophylaxis: Code(s): Z29.9 - Encounter for prophylactic measures, unspecified Status: Acute Assessment and Plan: Lovenox (7) Dietary counseling and surveillance: Code(s): Z71.3 - Dietary counseling and surveillance Status: Acute Assessment and Plan: patient tolerating tube feeds, at goal. No bowel movements noted, continue MiraLax - stress ulcer prophylaxis with Pepcid (8) Hyperkalemia: Code(s): E87.5 - Hyperkalemia Status: Acute Assessment and Plan: K 5.5 Kayexalate 15 g per tube x1 and recheck BMP later Additional Plan Code Status - Full Code Total Critical Care Time - 30 minutes Due to a high probability of clinically significant, life threatening deterioration, the patient required my highest level of preparedness to intervene emergently and I personally spent this critical care time directly and personally managing the patient. This critical care time included obtaining a history; examining the patient; pulse oximetry; ordering and review of studies; arranging urgent treatment with development of a management plan; evaluation of patient's response to treatment; frequent reassessment; and discussions with other providers. It was exclusive of separately billable procedures and treating other patients and teaching time. Please see Assessment and Plan section and the rest of the note for further information on patient assessment and treatment Subjective Date/time seen: 10/17/19 0700 Overnight events reviewed Afebrile Continues t
[2019-10-17] MEDS: SODIUM POLYSTYRENE SULFONONATE 15 GM/60 ML BTL PO (08:39)
[2019-10-17] MEDS: methylPREDNISolone SOD SUCC 40 MG VIAL 30 MG IV PUSH ×2 (08:40→21:49)
[2019-10-17] MEDS: FAMOTIDINE 20 MG/2 ML VIAL IV PUSH ×2 (08:43→21:49)
[2019-10-17 09:11] LABS: Alveolar/Arterial O2 Gradient 127.6 mmHg; Base Excess ABG 5.9 mEq/l (+/-2.0); Fractional Inspired Oxygen 35 %; HCO3 ABG 30.6 mEq/l (22.0-26.0); Oxygen Content ABG 18.1 %vol (16.0-22.0); Oxygen Saturation ABG 94.7 % (95.0-100.0); Oxyhemoglobin 92.7 % THb (90.0-100.0); PCO2 ABG 44.6 mmHg (35.0-45.0); PO2 ABG 70.1 mmHg (80.0-100.0); Total Hemoglobin 13.9 g/dL (12.0-18.0); pH ABG 7.454 (7.350-7.450)
[2019-10-17 09:13] LABS: Arterial Blood Gas PEEP 5 cmH2O; Arterial Blood Gas Pressure Support 5 cmH2O; Arterial Blood Gas Vent Mode SPONTANEOUS; Device VENTILATOR; Modified Allen's Test Pass; Site Drawn LEFT RADIAL
[2019-10-17] MEDS: ENOXAPARIN 40 MG/0.4 ML SYRINGE SUB-Q (09:49)
--- NOTE | 2019-10-17 11:01 | WPDINFPN2 ---
Progress Note: A&P Assessment and Plan (1) Concern about sexually transmitted disease in male without diagnosis: Code(s): Z71.1 - Person with feared health complaint in whom no diagnosis is made Status: Acute Assessment and Plan: 1. AIDS. Depressed CD4 and PJP. He has likely had HIV infection for years 2. Hemorrhoids 3. CAP, due to PJP. Extubated 4. Hep C infection with high viral load 5. Resp. failure. 6. R femoral TLC placed 10/11 REC Off Ctx and azithro. Continue TMP-SMX IV #, through 10/27. Also on steroids. Initiate antiretrovirals soon after discharge. Treat Hepatitis C in about 6 months, assuming he responds well to his antiretrovirals. Discussed above with him. Subjective Date/time seen: 10/17/19 11:01 Interval history: extubated, spitting up, no dyspnea no chest pain, not much appetite Exam Narrative: Exam Narrative: afebrile Const: General: no acute distress and uncomfortable Eyes: General: appearance normal, both eyes and all related structures Resp: Effort & Inspection: normal respiratory effort Auscultation: rales Cardio: Rate: tachycardic Rhythm: regular rhythm Heart sounds: no gallops and no murmurs GI: Inspection: non-distended GI Palp: Yes Soft to palpation and No Tenderness to palpation present (GI) Skin: General skin exam: normal color and no rashes or lesions noted Objective Data Vital Signs Vital Signs: Vital Signs - 24 hr 10/16/19 11:10 10/16/19 12:00 10/16/19 14:00 Temperature 37.1 C 36.9 C Pulse Rate 123 H 128 H 114 H Respiratory Rate 17 14 18 Blood Pressure 140/98 H 132/91 H Pulse Oximetry 94 95 10/16/19 14:45 10/16/19 16:00 10/16/19 16:50 Temperature 36.9 C Pulse Rate 114 H 109 H 123 H Respiratory Rate 14 Blood Pressure 130/88 Pulse Oximetry 95 96 95 10/16/19 18:00 10/16/19 19:39 10/16/19 19:56 Temperature 36.9 C Pulse Rate 105 H 113 H 113 H Respiratory Rate 18 18 Blood Pressure 128/91 H Pulse Oximetry 96 96 10/16/19 20:00 10/16/19 20:10 10/16/19 20:30 Temperature 37.1 C Pulse Rate 110 H 113 H 108 H Respiratory Rate 18 15 Blood Pressure 136/86 Pulse Oximetry 94 94 10/16/19 21:10 10/16/19 21:21 10/16/19 21:23 Temperature Pulse Rate 108 H 108 H 108 H Respiratory Rate 15 15 Blood Pressure Pulse Oximetry 10/16/19 22:00 10/16/19 22:49 10/16/19 23:15 Temperature Pulse Rate 108 H 109 H 108 H Respiratory Rate 22 H 15 Blood Pressure 139/86 Pulse Oximetry 95 94 10/17/19 00:00 10/17/19 02:00 10/17/19 02:15 Temperature 36.8 C 37.1 C Pulse Rate 104 H 115 H 116 H Respiratory Rate 18 15 17 Blood Pressure 146/84 H 161/107 H Pulse Oximetry 99 93 10/17/19 02:17 10/17/19 04:00 10/17/19 04:31 Temperature 37.0 C Pulse Rate 116 H 102 H 109 H Respiratory Rate 16 Blood Pressure 138/90 Pulse Oximetry 93 97 95 10/17/19 06:00 10/17/19 08:00 10/17/19 08:04 Temperature 36.8 C 37.0 C Pulse Rate 104 H 101 H 101 H Respiratory Rate 16 23 H Blood Pressure 144/98 H 145/100 H Pulse Oximetry 97 98 96 10/17/19 08:38 10/17/19 09:31 10/17/19 09:46 Temperature Pulse Rate 110 H 139 H Respiratory Rate 19 16 Blood Pressure Pulse Oximetry 91 95 10/17/19 10:00 Temperature Pulse Rate 117 H Respiratory Rate 13 Blood Pressure 168/107 H Pulse Oximetry 96 Intake/Output Intake/Output: Intake & Output 10/14/19 10/15/19 10/16/19 10/17/19 23:59 23:59 23:59 23:59 Intake Total 3373.8 3335 3603 1328 Output Total 9489 6475 4143 1750 Balance -201.2 -1965 -1197 -422 Meds/Results Medications: Active Medications Generic Name Dose Route Start Last Admin Trade Name Freq PRN Reason Stop Dose Admin Albuterol 2.5 mg 10/13/19 10:15 10/17/19 02:16 Albuterol Sulf Neb 2.5mg/0.5ml INHALATION 2.5 mg Q4HRT PRN Administration Shortness Of Breath Enoxaparin Sodium 40 mg 10/05/19 09:00 10/17/19 09:49 Lovenox SUB-Q 40 mg DAILY RASHAWN Administration
--- NOTE | 2019-10-17 11:11 | PCDIET ---
ICU Rounding Note: Patient extubated and on clear liquid diet following bedside swallow evaluation. Diet to advance as tolerated to regular, per MD. Last recorded weight is 49.6kg which is stable. Bowel Motility: No reported BM - RN anticipating BM s/p SPS Labs Reviewed: Hgb (12.5), Hct (36.3), Glu (116), K (5.5), Alb (3.0) Meds Noted: Albuterol, Pepcid, Fentanyl, Atrovent, Solu Medrol, Reglan, Versed, Zofran, Miralax, Septra Additional Notes: s/p SPS earlier today for borderline K+. Patient had emesis but is feeling better now, per nursing. No documented skin breakdown. Following daily in ICU rounds. Assessing/reassessing every 3 days.
[2019-10-17] MEDS: hydrALAZINE HCL 20 MG/ML VIAL 10 MG IV PUSH (13:16)
[2019-10-17] MEDS: NEOMYCIN/POLYMYXIN/BACITRACIN OINTMENT PACKET 1 PACKET (13:17)
--- NOTE | 2019-10-17 13:44 | PM.EVENT ---
Event Note Event Note Event Note: 07/02 PSV SBT done for more than 1 hour. RSBI, ABGI and Vitals were acceptable. Pt was awake and following commands. patient was extubated. Patient now claims that he is having difficulty breathing although his saturation is adequate on nasal cannula. Heart rate has gone up. This could be secondary to increased work of breathing worse anxiety.. I will start patient on BiPAP and will give dose anxiolytics once patient is on BiPAP.
--- NOTE | 2019-10-17 15:06 | PM.IMPN ---
Progress Note: A&P Assessment and Plan (1) Pneumonia: Qualifiers: Laterality: bilateral Lung location: unspecified part of lung Pneumonia type: due to unspecified organism Qualified Code(s): J18.9 - Pneumonia, unspecified organism Code(s): J18.9 - Pneumonia, unspecified organism Status: Acute Assessment and Plan: Initial CXR shows diffuse lung disease, likely pneumonia. Initial CXR, labs, and clinical picture were highly suggestive of COVID-19, however patient had 2 negative tests. His symptoms had been ongoing approximately [address] showed diffuse groundglass opacities throughout bilateral lung jackman. HIV screen drawn to evaluate for possible pneumonocystis pneumonia; found to be reactive. fever, elevated wcc. Repeat CXR 10/07 shows stable diffuse lung disease concerning for pneumocystis pneumonia. from previous notes unfortunately pt intubated last night due to respiratory failure. Sp bronchoschopy. reintubated yesterday pt is on IV rocephin and IV azithromycin. IV bactrim. Iv steroids and vasopressors _10/17/19 15:06 Initial CXR shows diffuse lung disease, likely pneumonia. Initial CXR, labs, and clinical picture were highly suggestive of COVID-19, however patient had 2 negative tests. His symptoms had been ongoing approximately [address] showed diffuse groundglass opacities throughout bilateral lung jackman. HIV screen drawn to evaluate for possible pneumonocystis pneumonia; found to be reactive. fever, elevated wcc. Repeat CXR 10/07 shows stable diffuse lung disease concerning for pneumocystis pneumonia. from previous notes unfortunately pt intubated last night due to respiratory failure. Sp bronchoschopy. reintubae on 10/12 patient is a 44 year male HIV and hepatitis C on ventilator most likely secondary to PJP pneumonia patient seen by Dr. Zuniga started the patient on IV Bactrim 12/18, and IV steroids, discussed with casting and pasting supervisor will continue present management and plan is to wean the patient off ventilator and further recommendation to follow, once patient is stable Dr. Zuniga is recommended to start the patient on antiviral for HIV and down the road treatment for hepatitis C after 6 months. today patient was successfully extubated currently on nasal cannula. complains of sore throat and cough denies any fever or chills discussed with casting and pasting supervisor will monitor patient 1 more day in ICU and possibly transfer the patient to IMU tomorrow (2) Concern about sexually transmitted disease in male without diagnosis: Code(s): Z71.1 - Person with feared health complaint in whom no diagnosis is made Status: Acute Assessment and Plan: Reactive HIV screening 10/03. Patient has both receptive and penetrative sex with males. Approximately 8 months ago, he had protected sex using a condom with an HIV positive male who he reports had undetectable viral load. Reactive screening has been discussed with him. CD4 absolute is 120. (3) Sinus tachycardia: Code(s): R00.0 - Tachycardia, unspecified Status: Acute Assessment and Plan: Review of telemetry reveals sinus tachycardia, no alarms overnight; asymptomatic. Likely multifactorial given fever, infection, and pain. TSH is wnl. He is not orthostatic. No pulmonary embolism seen on CTA. Echo performed on 10/05 with EF >70%, no wall abnormality, severe concentric hypertrophy, and possible HOCM. (4) Hypertension: Qualifiers: Hypertension type: essential hypertension Qualified Code(s): I10 - Essential (primary) hypertension Code(s): I10 - Essential (primary) hypertension Status: Acute Assessment and Plan: Monitor blood pressures closely (5) Hemorrhoids: Qualifiers: Hemorrhoid type: unspecified Qualified Code(s): K64.9 - Unspecifie
--- NOTE | 2019-10-17 22:32 | PM.PNPUL ---
Progress Note: A&P Assessment and Plan (1) Pneumocystis jiroveci pneumonia: Code(s): B59 - Pneumocystosis Status: Acute Assessment and Plan: continue Bactrim and systemic steroids. ID managing antibiotics (2) Pneumocystosis with HIV infection: Code(s): B20 - Human immunodeficiency virus [HIV] disease; B59 - Pneumocystosis Status: Acute (3) Acute respiratory failure with hypoxia: Code(s): J96.01 - Acute respiratory failure with hypoxia Status: Acute Assessment and Plan: extubated and doing well on high flow. continue weaning. Atrovent scheduled and albuterol nebs prn. Subjective Date/time seen: 10/17/19 22:32 Interval history: extubated today and doing well on high flow oxygen 45 liters and 60%. no respiratory distress evident. CXR is relatively unchanged. Review of Systems Review of Systems: All systems reviewed & are unremarkable except as noted in HPI and below Exam Const: General: comfortable Other: diaphortetic Neck: Neck: supple and no JVD Resp: Auscultation: clear to auscultation bilaterally, no crackles, no rales and no rhonchi Cardio: Rate: tachycardic Heart sounds: no murmurs GI: Auscultation: normal bowel sounds Neuro: Other: intubated and sedated Extrem: General: normal to inspection and no edema Objective Data Vital Signs Vital Signs: Vital Signs - 24 hr 10/16/19 22:49 10/16/19 23:15 10/17/19 00:00 Temperature 36.8 C Pulse Rate 109 H 108 H 104 H Respiratory Rate 15 18 Blood Pressure 146/84 H Pulse Oximetry 94 99 10/17/19 02:00 10/17/19 02:15 10/17/19 02:17 Temperature 37.1 C Pulse Rate 115 H 116 H 116 H Respiratory Rate 15 17 Blood Pressure 161/107 H Pulse Oximetry 93 93 10/17/19 04:00 10/17/19 04:31 10/17/19 06:00 Temperature 37.0 C 36.8 C Pulse Rate 102 H 109 H 104 H Respiratory Rate 16 16 Blood Pressure 138/90 144/98 H Pulse Oximetry 97 95 97 10/17/19 08:00 10/17/19 08:04 10/17/19 08:38 Temperature 37.0 C Pulse Rate 101 H 101 H 110 H Respiratory Rate 23 H 19 Blood Pressure 145/100 H Pulse Oximetry 98 96 10/17/19 09:31 10/17/19 09:46 10/17/19 10:00 Temperature Pulse Rate 139 H 117 H Respiratory Rate 16 13 Blood Pressure 168/107 H Pulse Oximetry 91 95 96 10/17/19 11:30 10/17/19 12:00 10/17/19 13:08 Temperature 36.8 C Pulse Rate 101 H 123 H Respiratory Rate 19 17 Blood Pressure 173/110 H Pulse Oximetry 94 93 10/17/19 13:42 10/17/19 14:00 10/17/19 14:28 Temperature Pulse Rate 146 H 147 H 138 H Respiratory Rate 27 H 26 H 26 H Blood Pressure 154/98 H Pulse Oximetry 84 L 91 98 10/17/19 14:44 10/17/19 14:45 10/17/19 15:57 Temperature Pulse Rate 149 H 149 H Respiratory Rate 22 H 22 H Blood Pressure Pulse Oximetry 93 100 100 10/17/19 16:00 10/17/19 18:00 10/17/19 20:00 Temperature 37.1 C 37.1 C Pulse Rate 133 H 133 H 118 H Respiratory Rate 17 22 H 20 Blood Pressure 133/92 H 138/90 126/85 Pulse Oximetry 98 100 98 10/17/19 20:24 10/17/19 21:08 10/17/19 21:33 Temperature Pulse Rate 121 H 119 H 120 H Respiratory Rate 20 20 20 Blood Pressure Pulse Oximetry 98 99 97 10/17/19 22:10 Temperature Pulse Rate 119 H Respiratory Rate 27 H Blood Pressure 120/77 Pulse Oximetry 98 Intake/Output Intake/Output: Intake & Output 10/14/19 10/15/19 10/16/19 10/17/19 23:59 23:59 23:59 23:59 Intake Total 3373.8 3335 3603 2696 Output Total 3400 5541 1448 3309 [facility] -201.2 -1965 -1197 -604 Meds/Results Medications: Active Medications Generic Name Dose Route Start Last Admin Trade Name Freq PRN Reason Stop Dose Admin Enoxaparin Sodium 40 mg 10/05/19 09:00 10/17/19 09:49 Lovenox SUB-Q 40 mg DAILY RASHAWN Administration Famotidine 20 mg 10/02/19 21:00 10/17/19 21:49 Pepcid Iv IV PUSH 20 mg Q12HR RASHAWN Administration Hydralazine HCl 10 mg 10/15/19 18:23 10/17/19 13:16 Apresoline Hcl Inj
[2019-10-18] VITALS (24 sets, daily range): BP systolic 106–139; BP diastolic 70–97; PULSE 100–123; RESP 17–33; TEMP 35.6–37.1; O2SAT 92–99
[2019-10-18 04:38] LABS: Hematocrit 39.6 % (42.0-52.0); Hemoglobin 13.8 g/dL (14.0-18.0); Mean Corpuscular HGB Conc 34.8 g/dl (32-36); Mean Corpuscular Volume 83.2 fl (80-100); Mean Platelet Volume 8.9 fl (7.4-10.4); Platelet Count Result 515 k/mm3 (150-375); Red Blood Count 4.76 M/mm3 (4.6-6.20); Red Cell Distribution Width 11.7 % (11.5-14.5); White Blood Count 10.2 K/mm3 (4.5-10.0)
[2019-10-18 04:51] LABS: Alanine Aminotransferase 38 U/L (4-50); Albumin Level 3.1 g/dL (3.5-5.1); Alkaline Phosphatase 96 U/L (38-126); Anion Gap 8 mmol/L (8-16); Aspartate Amino Transferase 44 U/L (17-59); Bilirubin,Total 0.1 mg/dL (0.2-1.3); Blood Urea Nitrogen 16 mg/dL (9-20); Calcium 9.1 mg/dL (8.4-10.2); Carbon Dioxide 31 mmol/L (22-30); Chloride 88 mmol/L (98-107); Estimated CRCL calculation 72 ml/min; Estimated Glomerular Filt Rate > 60; Glucose 109 mg/dL (75-110); Magnesium 1.9 mg/dL (1.6-2.3); Sodium 127 mmol/L (137-145)
[2019-10-18 05:01] LABS: Potassium 5.1 mmol/L (3.4-5.0)
[2019-10-18 05:27] LABS: Alveolar/Arterial O2 Gradient 211.4 mmHg; Base Excess ABG 6.2 mEq/l (+/-2.0); Carboxyhemoglobin 0.6 % THb (0-2.0); Fractional Inspired Oxygen 50 %; HCO3 ABG 30.2 mEq/l (22.0-26.0); Methemoglobin ABG 0.3 %THb (0-1.5); Oxygen Content ABG 18.6 %vol (16.0-22.0); Oxygen Saturation ABG 97.8 % (95.0-100.0); Oxyhemoglobin 96.2 % THb (90.0-100.0); PCO2 ABG 41.4 mmHg (35.0-45.0); PO2 ABG 98.5 mmHg (80.0-100.0); PO2 FiO2 Ratio Arterial Blood 1.97 %; Reduced Hemoglobin 2.9 %THb (0-5.0); Total Hemoglobin 13.7 g/dL (12.0-18.0); pH ABG 7.481 (7.350-7.450)
[2019-10-18 05:28] LABS: Device HIGH FLOW THERAPY; Modified Allen's Test Pass; Site Drawn RIGHT RADIAL
[2019-10-18] MEDS: CENTRAL LINE FLUSH 10 ML IV PUSH ×3 (05:46→21:15)
[2019-10-18] MEDS: SODIUM POLYSTYRENE SULFONONATE 15 GM/60 ML BTL PO (08:48)
[2019-10-18] MEDS: FAMOTIDINE 20 MG/2 ML VIAL IV PUSH ×2 (08:49→21:14)
[2019-10-18] MEDS: polyethylene glycoL 3350 17 GM POWD.PACK PO (08:49)
[2019-10-18] MEDS: methylPREDNISolone SOD SUCC 40 MG VIAL 30 MG IV PUSH (08:49)
[2019-10-18] MEDS: ENOXAPARIN 40 MG/0.4 ML SYRINGE SUB-Q (08:49)
--- NOTE | 2019-10-18 09:53 | WPDINTPN ---
Progress Note: A&P Assessment and Plan (1) Acute respiratory failure with hypoxia: Code(s): J96.01 - Acute respiratory failure with hypoxia Status: Acute Assessment and Plan: Acute Respiratory failure secondary to PJP pneumonia in a newly diagnosed AIDS patient 10/16 patient was extubated after the successful weaning trial. Post extubation after few hours patient developed respiratory distress and tachycardia although his oxygenation was adequate on nasal cannula. BiPAP was tried but patient did not tolerate it. Patient was placed on Airvo which helped. Still fairly hypoxic and requiring PEEP support from a Airvo lPatient is currently on 50% FiO2 and 35 liter/minute flow. ABG and PCXR reviewed. will try weaning FiO2 if possible Chest x-ray continues to show diffuse bilateral infiltrates hypoxia has improved significantly Continue Bronchodilators p.r.n. Patient underwent diagnostic bronchoscopy 10/11. BAL was collected and sent for stains and culture which are pending PJP direct fluorescent antibody was positive pneumocystis PCR pending continue Bactrim per infectious disease specialist azithromycin and Rocephin discontinued on 10/15/2019 per Infectious Disease specialist Solu-Medrol started 10/12 (2) Pneumonia: Qualifiers: Laterality: bilateral Lung location: unspecified part of lung Pneumonia type: due to unspecified organism Qualified Code(s): J18.9 - Pneumonia, unspecified organism Code(s): J18.9 - Pneumonia, unspecified organism Status: Acute Assessment and Plan: see above (3) Septic shock: Code(s): A41.9 - Sepsis, unspecified organism; R65.21 - Severe sepsis with septic shock Status: Acute Assessment and Plan: RESOLVED: off of Levophed since 10/12, 5:00 a.m.. IV fluids discontinue as patient has received significant amount of fluid since admission patient fairly positive on his balance hence will discontinue further fluids Patient status post stress dose steroids (4) Suspected COVID-19 virus infection: Code(s): Z20.828 - Contact with and (suspected) exposure to other viral communicable diseases Status: Acute Assessment and Plan: COVID-19 ruled out. SARS-CoV-2 PCR was negative x 2 Patient was on Airborne, Droplet and Contact Isolation which now has been discontinued. (5) AIDS: Code(s): B20 - Human immunodeficiency virus [HIV] disease Status: Acute Assessment and Plan: New diagnosis HIV antibody screen positive Viral load 187K CD4 count is 120 Patient also positive for hepatitis-C influenza a and B PCR negative urine Legionella and pneumococcal antigen: not detected Management per infectious disease (6) DVT prophylaxis: Code(s): Z29.9 - Encounter for prophylactic measures, unspecified Status: Acute Assessment and Plan: Lovenox (7) Dietary counseling and surveillance: Code(s): Z71.3 - Dietary counseling and surveillance Status: Acute Assessment and Plan: advance diet - stress ulcer prophylaxis with Pepcid (8) Hyperkalemia: Code(s): E87.5 - Hyperkalemia Status: Acute Assessment and Plan: K 5.1 today after Kayexalate 15 g yesterday. Will give another dose today Additional Plan Code Status - Full Code Total Critical Care Time - 30 minutes Due to a high probability of clinically significant, life threatening deterioration, the patient required my highest level of preparedness to intervene emergently and I personally spent this critical care time directly and personally managing the patient. This critical care time included obtaining a history; examining the patient; pulse oximetry; ordering and review of studies; arranging urgent treatment with development of a management plan; evaluation of patient's response to treatment; frequent reassessment; and discussions with other providers. It was exclusive of separate
--- NOTE | 2019-10-18 10:40 | PCDIET ---
ICU Rounding Note: Patient was made NPO yesterday. RN to order regular diet per MD orders. RN reports patient with minimal appetite but does like Ensure supplements. Last recorded weight is 42.4kg which is significantly decreased. -I/O but would not expect such significant decreased. Would reweigh to ensure accuracy. Bowel Motility: No BM reported. Labs Reviewed: Hgb (13.8), Hct (39.6), K (5.1), Na (127), Alb (3.1) Meds Noted: Pepcid, Xopenex, Septra, Atrovent, Solu Medrol, Kayexalate, Miralax Additional Notes: If no BM after this dose of Kayexalate, would consider additional medication to promote BM. Miralax started on 10/15/19. No documented skin breakdown. Buttocks with preventative Mepilex. Following daily in ICU rounds. Assessing/reassessing every 3 days.
--- NOTE | 2019-10-18 10:58 | PM.PNPUL ---
Progress Note: A&P Assessment and Plan (1) Pneumocystis jiroveci pneumonia: Qualifiers: Laterality: bilateral Lung location: unspecified part of lung Qualified Code(s): B59 - Pneumocystosis Code(s): B59 - Pneumocystosis Status: Acute Assessment and Plan: continue Bactrim and systemic steroids. ID managing antibiotics (2) Pneumocystosis with HIV infection: Code(s): B20 - Human immunodeficiency virus [HIV] disease; B59 - Pneumocystosis Status: Acute (3) Acute respiratory failure with hypoxia: Code(s): J96.01 - Acute respiratory failure with hypoxia Status: Acute Assessment and Plan: extubated and doing well on high flow. continue weaning. Atrovent scheduled and albuterol nebs prn. Subjective Date/time seen: 10/18/19 10:58 Interval history: Doing well, high flow weaning. More lethargic/sleep today like due to sedatives Review of Systems Review of Systems: All systems reviewed & are unremarkable except as noted in HPI and below Exam Const: General: comfortable Other: diaphortetic Neck: Neck: supple and no JVD Resp: Auscultation: clear to auscultation bilaterally, no crackles, no rales and no rhonchi Cardio: Rate: tachycardic Heart sounds: no murmurs GI: Auscultation: normal bowel sounds Neuro: Other: intubated and sedated Extrem: General: normal to inspection and no edema Objective Data Vital Signs Vital Signs: Vital Signs - 24 hr 10/17/19 11:30 10/17/19 12:00 10/17/19 13:08 Temperature 36.8 C Pulse Rate 101 H 123 H Respiratory Rate 19 17 Blood Pressure 173/110 H Pulse Oximetry 94 93 10/17/19 13:42 10/17/19 14:00 10/17/19 14:28 Temperature Pulse Rate 146 H 147 H 138 H Respiratory Rate 27 H 26 H 26 H Blood Pressure 154/98 H Pulse Oximetry 84 L 91 98 10/17/19 14:44 10/17/19 14:45 10/17/19 15:57 Temperature Pulse Rate 149 H 149 H Respiratory Rate 22 H 22 H Blood Pressure Pulse Oximetry 93 100 100 10/17/19 16:00 10/17/19 18:00 10/17/19 20:00 Temperature 37.1 C 37.1 C Pulse Rate 133 H 133 H 118 H Respiratory Rate 17 22 H 20 Blood Pressure 133/92 H 138/90 126/85 Pulse Oximetry 98 100 98 10/17/19 20:24 10/17/19 21:08 10/17/19 21:33 Temperature Pulse Rate 121 H 119 H 120 H Respiratory Rate 20 20 20 Blood Pressure Pulse Oximetry 98 99 97 10/17/19 22:10 10/18/19 00:00 10/18/19 00:31 Temperature 36.8 C Pulse Rate 119 H 116 H 116 H Respiratory Rate 27 H 29 H Blood Pressure 120/77 112/73 Pulse Oximetry 98 96 10/18/19 00:32 10/18/19 02:00 10/18/19 02:08 Temperature Pulse Rate 116 H 114 H 108 H Respiratory Rate 29 H 28 H 22 H Blood Pressure 139/97 H Pulse Oximetry 96 98 99 10/18/19 02:59 10/18/19 04:00 10/18/19 06:00 Temperature 37.1 C Pulse Rate 109 H 111 H 108 H Respiratory Rate 20 24 H 23 H Blood Pressure 106/70 121/74 Pulse Oximetry 97 96 97 10/18/19 08:00 10/18/19 08:47 10/18/19 09:12 Temperature 36.8 C Pulse Rate 104 H 105 H 105 H Respiratory Rate 18 18 Blood Pressure 112/72 Pulse Oximetry 99 99 10/18/19 09:29 10/18/19 10:00 10/18/19 10:18 Temperature Pulse Rate 111 H 110 H 110 H Respiratory Rate 20 24 H 24 H Blood Pressure 124/70 Pulse Oximetry 97 97 97 10/18/19 10:36 Temperature Pulse Rate 112 H Respiratory Rate 24 H Blood Pressure Pulse Oximetry 97 Intake/Output Intake/Output: Intake & Output 10/15/19 10/16/19 10/17/19 10/18/19 23:59 23:59 23:59 23:59 Intake Total 5255 3603 2696 1038 Output Total 0544 0795 6328 137 Balance -1965 -1197 -604 188 Meds/Results Medications: Active Medications Generic Name Dose Route Start Last Admin Trade Name Freq PRN Reason Stop Dose Admin Enoxaparin Sodium 40 mg 10/05/19 09:00 10/18/19 08:49 Lovenox SUB-Q 40 mg DAILY RASHAWN Administration Famotidine 20 mg 10/02/19 21:00 10/18/19 08:49 Pepcid Iv IV PUSH 20 mg Q12HR RASHAWN Administratio
--- NOTE | 2019-10-18 13:50 | WPDINFPN2 ---
Progress Note: A&P Assessment and Plan (1) Concern about sexually transmitted disease in male without diagnosis: Code(s): Z71.1 - Person with feared health complaint in whom no diagnosis is made Status: Acute Assessment and Plan: 1. AIDS. Depressed CD4 and PJP. He has likely had HIV infection for years 2. Hemorrhoids 3. CAP, due to PJP. Extubated 4. Hep C infection with high viral load 5. Resp. failure, compensated REC Off Ctx and azithro. Continue TMP-SMX #, change to oral, through 10/27. Then one DS tablet every MWF. Also on steroids, and from my standpoint can change anytime to Prednisone 20 mg daily through 10/27. Initiate antiretrovirals soon after discharge. Treat Hepatitis C in about 6 months, assuming he responds well to his antiretrovirals. Will sign off. He lives in [place], so should see MDs there. Subjective Date/time seen: 10/18/19 13:50 Interval history: no new complaints, mild dyspnea, up in chair Exam Narrative: Exam Narrative: afebrile Const: General: no acute distress Eyes: General: appearance normal, both eyes and all related structures Resp: Effort & Inspection: normal respiratory effort Auscultation: clear to auscultation bilaterally and diminished lung sounds Cardio: Rate: tachycardic Rhythm: regular rhythm Heart sounds: no gallops and no murmurs GI: Inspection: non-distended GI Palp: Yes Soft to palpation and No Tenderness to palpation present (GI) Objective Data Vital Signs Vital Signs: Vital Signs - 24 hr 10/17/19 14:00 10/17/19 14:28 10/17/19 14:44 Temperature Pulse Rate 147 H 138 H Respiratory Rate 26 H 26 H Blood Pressure 154/98 H Pulse Oximetry 91 98 93 10/17/19 14:45 10/17/19 15:57 10/17/19 16:00 Temperature 37.1 C Pulse Rate 149 H 149 H 133 H Respiratory Rate 22 H 22 H 17 Blood Pressure 133/92 H Pulse Oximetry 100 100 98 10/17/19 18:00 10/17/19 20:00 10/17/19 20:24 Temperature 37.1 C Pulse Rate 133 H 118 H 121 H Respiratory Rate 22 H 20 20 Blood Pressure 138/90 126/85 Pulse Oximetry 100 98 98 10/17/19 21:08 10/17/19 21:33 10/17/19 22:10 Temperature Pulse Rate 119 H 120 H 119 H Respiratory Rate 20 20 27 H Blood Pressure 120/77 Pulse Oximetry 99 97 98 10/18/19 00:00 10/18/19 00:31 10/18/19 00:32 Temperature 36.8 C Pulse Rate 116 H 116 H 116 H Respiratory Rate 29 H 29 H Blood Pressure 112/73 Pulse Oximetry 96 96 10/18/19 02:00 10/18/19 02:08 10/18/19 02:59 Temperature Pulse Rate 114 H 108 H 109 H Respiratory Rate 28 H 22 H 20 Blood Pressure 139/97 H Pulse Oximetry 98 99 97 10/18/19 04:00 10/18/19 06:00 10/18/19 08:00 Temperature 37.1 C Pulse Rate 111 H 108 H 104 H Respiratory Rate 24 H 23 H Blood Pressure 106/70 121/74 Pulse Oximetry 96 97 10/18/19 08:47 10/18/19 09:12 10/18/19 09:29 Temperature 36.8 C Pulse Rate 105 H 105 H 111 H Respiratory Rate 18 18 20 Blood Pressure 112/72 Pulse Oximetry 99 99 97 10/18/19 10:00 10/18/19 10:18 10/18/19 10:36 Temperature Pulse Rate 110 H 110 H 112 H Respiratory Rate 24 H 24 H 24 H Blood Pressure 124/70 Pulse Oximetry 97 97 97 10/18/19 12:00 Temperature 36.9 C Pulse Rate 121 H Respiratory Rate 17 Blood Pressure 111/88 Pulse Oximetry 94 Intake/Output Intake/Output: Intake & Output 10/15/19 10/16/19 10/17/19 10/18/19 23:59 23:59 23:59 23:59 Intake Total 3335 3603 1786 1557 Output Total 7910 1460 7448 850 Balance -1965 -1197 -604 707 Meds/Results Medications: Active Medications Generic Name Dose Route Start Last Admin Trade Name Freq PRN Reason Stop Dose Admin Enoxaparin Sodium 40 mg 10/05/19 09:00 10/18/19 08:49 Lovenox SUB-Q 40 mg DAILY RASHAWN Administration Famotidine 20 mg 10/02/19 21:00 10/18/19 08:49 Pepcid Iv IV PUSH 20 mg Q12HR RASHAWN Administration Hydralazine HCl 10 mg 10/15/19 18:23 10/17/19 13:16 Apresoline Hcl Inj IV PUSH 10 mg Q4HR PRN Administ
[2019-10-18 15:11] LABS: Anion Gap 8 mmol/L (8-16); Blood Urea Nitrogen 19 mg/dL (9-20); Calcium 8.9 mg/dL (8.4-10.2); Carbon Dioxide 32 mmol/L (22-30); Chloride 87 mmol/L (98-107); Estimated CRCL calculation 50 ml/min; Estimated Glomerular Filt Rate > 60; Glucose 111 mg/dL (75-110); Potassium 4.9 mmol/L (3.4-5.0); Sodium 127 mmol/L (137-145)
--- NOTE | 2019-10-18 17:17 | PM.IMPN ---
Progress Note: A&P Assessment and Plan (1) Pneumonia: Qualifiers: Laterality: bilateral Lung location: unspecified part of lung Pneumonia type: due to unspecified organism Qualified Code(s): J18.9 - Pneumonia, unspecified organism Code(s): J18.9 - Pneumonia, unspecified organism Status: Acute Assessment and Plan: Initial CXR shows diffuse lung disease, likely pneumonia. Initial CXR, labs, and clinical picture were highly suggestive of COVID-19, however patient had 2 negative tests. His symptoms had been ongoing approximately [address] showed diffuse groundglass opacities throughout bilateral lung jackman. HIV screen drawn to evaluate for possible pneumonocystis pneumonia; found to be reactive. fever, elevated wcc. Repeat CXR 10/07 shows stable diffuse lung disease concerning for pneumocystis pneumonia. from previous notes unfortunately pt intubated last night due to respiratory failure. Sp bronchoschopy. reintubated yesterday pt is on IV rocephin and IV azithromycin. IV bactrim. Iv steroids and vasopressors _10/17/19 15:06 Initial CXR shows diffuse lung disease, likely pneumonia. Initial CXR, labs, and clinical picture were highly suggestive of COVID-19, however patient had 2 negative tests. His symptoms had been ongoing approximately [address] showed diffuse groundglass opacities throughout bilateral lung jackman. HIV screen drawn to evaluate for possible pneumonocystis pneumonia; found to be reactive. fever, elevated wcc. Repeat CXR 10/07 shows stable diffuse lung disease concerning for pneumocystis pneumonia. from previous notes unfortunately pt intubated last night due to respiratory failure. Sp bronchoschopy. reintubae on 10/1210/18/19 17:17 patient is a 44 year male HIV and hepatitis C on ventilator most likely secondary to PJP pneumonia patient seen by Dr. Zuniga started the patient on IV Bactrim 12/18, and IV steroids, discussed with machine i engraver will continue present management and plan is to wean the patient off ventilator and further recommendation to follow, once patient is stable Dr. Zuniga is recommended to start the patient on antiviral for HIV and down the road treatment for hepatitis C after 6 months. on 10/16 patient was successfully extubated currently on on high-flownasal cannula. is feeling much better compared to yesterday not a short of breath it was able to sleep without oxygen last night, denies any fever or chills will continue monitor patient in ICU and will transfer patient out of IMU tomorrow, patient is seen by machine i engraver, water filterer helper and ID. and appreciate (2) Concern about sexually transmitted disease in male without diagnosis: Code(s): Z71.1 - Person with feared health complaint in whom no diagnosis is made Status: Acute Assessment and Plan: Reactive HIV screening 10/03. Patient has both receptive and penetrative sex with males. Approximately 8 months ago, he had protected sex using a condom with an HIV positive male who he reports had undetectable viral load. Reactive screening has been discussed with him. CD4 absolute is 120. (3) Sinus tachycardia: Code(s): R00.0 - Tachycardia, unspecified Status: Acute Assessment and Plan: Review of telemetry reveals sinus tachycardia, no alarms overnight; asymptomatic. Likely multifactorial given fever, infection, and pain. TSH is wnl. He is not orthostatic. No pulmonary embolism seen on CTA. Echo performed on 10/05 with EF >70%, no wall abnormality, severe concentric hypertrophy, and possible HOCM. (4) Hypertension: Qualifiers: Hypertension type: essential hypertension Qualified Code(s): I10 - Essential (primary) hypertension Code(s): I10 - Essential (primary) hypertension Status: Acute Assessment and Plan: Monitor blood pressures closely
--- NOTE | 2019-10-18 18:04 | PC.NURSE ---
Patient transferred to [facility] via bed with respiratory and RN. All belongings sent with patient in bed. IMU telemetry put on with meds given to RN. Report given to MELODIE Huff.
--- NOTE | 2019-10-18 18:36 | PC.NURSE ---
This patient, Kirt Ramos, was received from ICU-12 on 10/18/19 at 1823. Report received from MELODIE Arias. Personal belongings list checked and signed. Patient/family oriented to unit policies and routines
[2019-10-19] VITALS (17 sets, daily range): BP systolic 118–146; BP diastolic 45–85; PULSE 94–134; RESP 18–24; TEMP 36.6–37.1; O2SAT 92–100
[2019-10-19 04:52] LABS: Hematocrit 37.1 % (42.0-52.0); Hemoglobin 12.6 g/dL (14.0-18.0); Mean Corpuscular Hemoglobin 28.8 pg (26-34); Mean Corpuscular Volume 84.7 fl (80-100); Mean Platelet Volume 9.1 fl (7.4-10.4); Platelet Count Result 440 k/mm3 (150-375); Red Blood Count 4.38 M/mm3 (4.6-6.20); Red Cell Distribution Width 11.9 % (11.5-14.5); White Blood Count 9.1 K/mm3 (4.5-10.0)
[2019-10-19 05:08] LABS: Alanine Aminotransferase 39 U/L (4-50); Albumin Level 2.9 g/dL (3.5-5.1); Alkaline Phosphatase 94 U/L (38-126); Anion Gap 6 mmol/L (8-16); Aspartate Amino Transferase 46 U/L (17-59); Bilirubin,Total 0.2 mg/dL (0.2-1.3); Blood Urea Nitrogen 22 mg/dL (9-20); Calcium 8.7 mg/dL (8.4-10.2); Carbon Dioxide 32 mmol/L (22-30); Chloride 89 mmol/L (98-107); Estimated CRCL calculation 56 ml/min; Estimated Glomerular Filt Rate > 60; Glucose 90 mg/dL (75-110); Magnesium 1.9 mg/dL (1.6-2.3); Potassium 4.1 mmol/L (3.4-5.0); Sodium 127 mmol/L (137-145)
[2019-10-19] MEDS: CENTRAL LINE FLUSH 10 ML IV PUSH ×3 (05:28→21:39)
[2019-10-19] MEDS: ENOXAPARIN 40 MG/0.4 ML SYRINGE SUB-Q (09:33)
[2019-10-19] MEDS: methylPREDNISolone SOD SUCC 40 MG VIAL 30 MG IV PUSH (09:33)
[2019-10-19] MEDS: polyethylene glycoL 3350 17 GM POWD.PACK PO (09:33)
[2019-10-19] MEDS: FAMOTIDINE 20 MG/2 ML VIAL IV PUSH ×2 (09:33→21:39)
--- NOTE | 2019-10-19 11:28 | PM.PNPUL ---
Progress Note: A&P Assessment and Plan (1) Pneumocystis jiroveci pneumonia: Qualifiers: Laterality: bilateral Lung location: unspecified part of lung Qualified Code(s): B59 - Pneumocystosis Code(s): B59 - Pneumocystosis Status: Acute Assessment and Plan: continue Bactrim and systemic steroids. ID managing antibiotics (2) Pneumocystosis with HIV infection: Code(s): B20 - Human immunodeficiency virus [HIV] disease; B59 - Pneumocystosis Status: Acute (3) Acute respiratory failure with hypoxia: Code(s): J96.01 - Acute respiratory failure with hypoxia Status: Acute Assessment and Plan: - transfer to medical [facility] - weaned to Nasal Cannula this morning at 6 liters and tolerating. - continuing weaning oxygen to keep sats > 92%. Time Spent With Patient Time with patient: 15 - 25 minutes Subjective Date/time seen: 10/19/19 11:28 Interval history: Doing well. Tearful regarding his condition. He's recovering. weaned to NC 6 liters this morning Review of Systems Review of Systems: All systems reviewed & are unremarkable except as noted in HPI and below Exam Const: General: comfortable Other: diaphortetic Neck: Neck: supple and no JVD Resp: Auscultation: clear to auscultation bilaterally, no crackles, no rales and no rhonchi Cardio: Rate: tachycardic Heart sounds: no murmurs GI: Auscultation: normal bowel sounds Neuro: Other: intubated and sedated Extrem: General: normal to inspection and no edema Objective Data Vital Signs Vital Signs: Vital Signs - 24 hr 10/18/19 12:00 10/18/19 14:00 10/18/19 15:58 Temperature 36.9 C Pulse Rate 121 H 122 H 110 H Respiratory Rate 17 20 Blood Pressure 111/88 Pulse Oximetry 94 94 10/18/19 16:00 10/18/19 17:56 10/18/19 19:44 Temperature 37.0 C 35.6 C L Pulse Rate 113 H 110 H 113 H Respiratory Rate 33 H 18 Blood Pressure 124/88 121/72 Pulse Oximetry 96 96 10/18/19 20:00 10/18/19 20:41 10/18/19 22:00 Temperature Pulse Rate 109 H 107 H 100 Respiratory Rate 20 Blood Pressure Pulse Oximetry 92 10/19/19 00:00 10/19/19 00:08 10/19/19 02:00 Temperature 36.9 C Pulse Rate 109 H 120 H 110 H Respiratory Rate 18 Blood Pressure 118/69 Pulse Oximetry 96 10/19/19 04:00 10/19/19 06:00 10/19/19 08:00 Temperature 36.6 C 36.8 C Pulse Rate 112 H 110 H 104 H Respiratory Rate 18 18 Blood Pressure 123/64 127/69 Pulse Oximetry 98 99 10/19/19 09:49 10/19/19 10:00 Temperature Pulse Rate Respiratory Rate Blood Pressure Pulse Oximetry 93 93 Intake/Output Intake/Output: Intake & Output 10/16/19 10/17/19 10/18/19 10/19/19 23:59 23:59 23:59 23:59 Intake Total 3603 2696 1557 Output Total 4800 3300 1756 325 [facility] -1197 -604 -194 -325 Meds/Results Medications: Active Medications Generic Name Dose Route Start Last Admin Trade Name Freq PRN Reason Stop Dose Admin Enoxaparin Sodium 40 mg 10/05/19 09:00 10/19/19 09:33 Lovenox SUB-Q 40 mg DAILY RASHAWN Administration Famotidine 20 mg 10/02/19 21:00 10/19/19 09:33 Pepcid Iv IV PUSH 20 mg Q12HR RASHAWN Administration Hydralazine HCl 10 mg 10/15/19 18:23 10/17/19 13:16 Apresoline Hcl Inj IV PUSH 10 mg Q4HR PRN Administration Blood Pressure - High Hydrocortisone Acetate 25 mg 10/03/19 13:44 10/04/19 21:22 Anusol-Hc Suppository RECTAL 25 mg Q12HR PRN Administration rectal pain Ipratropium [place] 0.5 mg 10/13/19 10:15 10/17/19 02:16 Atrovent Neb INHALATION 0.5 mg Q4HRT PRN Administration wheezing Levalbuterol HCl 1.25 mg 10/17/19 22:15 Xopenex 1.25 Mg/0.5 Ml INHALATION Q6HRT PRN Shortness Of Breath Or Wheezing Lidocaine HCl 1 applic 10/05/19 11:55 10/11/19 12:57 Lidocaine Jelly 2% MUCOUS MEM 1 applic Q6H PRN Administration Rectal pain Lorazepam 1 mg 10/17/19 17:39 10/18/19 23:53 Ativan Inj I
--- NOTE | 2019-10-19 14:36 | PCDIET ---
Nutrition Follow-Up Complete: Nutrition Diagnosis: Inadequate oral intake related to pneumonia as evidenced by poor po intake and weight loss of 23 ibs. Nutrition Goal: Intake of at least 75% of meals/supplements Goal in progress. Patient with minimal intake on 10/18/19, but patient reports eating good breakfast this morning, including sausage, eggs, juice and Ensure Enlive. Discussed importance of continued intake and supplementation to gain back strength. Snacks between meals suggested. Would also add Frozen Nutritional Treat (previously Thrive Ice Cream for 300kcal, 9g protein) BID to promote intakes. Last recorded weight is 47.4 kg which is up from last review. Bowel Motility: +BM today. Labs Reviewed: Hgb (12.6), Hct (37.1), BUN (22), Na (127), Alb (2.9) Meds Noted: Pepcid, Atrovent, Xopenex, Solu Medrol, Miralax, Septra Additional Notes: No documented skin breakdown. Will continue to monitor with same goal. Nutrition Monitoring and Evaluation: Will follow up in 3 days.
--- NOTE | 2019-10-19 17:41 | PM.IMPN ---
Progress Note: A&P Assessment and Plan (1) Pneumonia: Qualifiers: Laterality: bilateral Lung location: unspecified part of lung Pneumonia type: due to unspecified organism Qualified Code(s): J18.9 - Pneumonia, unspecified organism Code(s): J18.9 - Pneumonia, unspecified organism Status: Acute Assessment and Plan: Initial CXR shows diffuse lung disease, likely pneumonia. Initial CXR, labs, and clinical picture were highly suggestive of COVID-19, however patient had 2 negative tests. His symptoms had been ongoing approximately [address] showed diffuse groundglass opacities throughout bilateral lung jackman. HIV screen drawn to evaluate for possible pneumonocystis pneumonia; found to be reactive. fever, elevated wcc. Repeat CXR 10/07 shows stable diffuse lung disease concerning for pneumocystis pneumonia. from previous notes unfortunately pt intubated last night due to respiratory failure. Sp bronchoschopy. reintubated yesterday pt is on IV rocephin and IV azithromycin. IV bactrim. Iv steroids and vasopressors _10/17/19 15:06 Initial CXR shows diffuse lung disease, likely pneumonia. Initial CXR, labs, and clinical picture were highly suggestive of COVID-19, however patient had 2 negative tests. His symptoms had been ongoing approximately [address] showed diffuse groundglass opacities throughout bilateral lung jackman. HIV screen drawn to evaluate for possible pneumonocystis pneumonia; found to be reactive. fever, elevated wcc. Repeat CXR 10/07 shows stable diffuse lung disease concerning for pneumocystis pneumonia. from previous notes unfortunately pt intubated last night due to respiratory failure. Sp bronchoschopy. reintubae on 10/1210/19/19 17:41 patient is a 44 year male HIV and hepatitis C on ventilator most likely secondary to PJP pneumonia patient seen by Dr. Zuniga started the patient on IV Bactrim 12/18, and IV steroids, discussed with tail edger will continue present management and plan is to wean the patient off ventilator and further recommendation to follow, once patient is stable Dr. Zuniga is recommended to start the patient on antiviral for HIV and down the road treatment for hepatitis C after 6 months. on 10/16 patient was successfully extubated currently on on high-flownasal cannula. is feeling much better compared to yesterday not a short of breath it was able to sleep without oxygen last night, denies any fever or chills will continue monitor patient in ICU and will transfer patient, patient is seen in IMU states feeling much better not a short of breath, denies any fever or chills (2) Concern about sexually transmitted disease in male without diagnosis: Code(s): Z71.1 - Person with feared health complaint in whom no diagnosis is made Status: Acute Assessment and Plan: Reactive HIV screening 10/03. Patient has both receptive and penetrative sex with males. Approximately 8 months ago, he had protected sex using a condom with an HIV positive male who he reports had undetectable viral load. Reactive screening has been discussed with him. CD4 absolute is 120. (3) Sinus tachycardia: Code(s): R00.0 - Tachycardia, unspecified Status: Acute Assessment and Plan: Review of telemetry reveals sinus tachycardia, no alarms overnight; asymptomatic. Likely multifactorial given fever, infection, and pain. TSH is wnl. He is not orthostatic. No pulmonary embolism seen on CTA. Echo performed on 10/05 with EF >70%, no wall abnormality, severe concentric hypertrophy, and possible HOCM. (4) Hypertension: Qualifiers: Hypertension type: essential hypertension Qualified Code(s): I10 - Essential (primary) hypertension Code(s): I10 - Essential (primary) hypertension Status: Acute Assessment and Plan: Monitor blood pressures closely
[2019-10-20] VITALS (22 sets, daily range): BP systolic 109–127; BP diastolic 71–84; PULSE 93–115; RESP 18–20; TEMP 35.7–36.8; O2SAT 87–100
[2019-10-20 04:44] LABS: Hematocrit 37.4 % (42.0-52.0); Hemoglobin 12.9 g/dL (14.0-18.0); Mean Corpuscular HGB Conc 34.5 g/dl (32-36); Mean Corpuscular Hemoglobin 29.1 pg (26-34); Mean Corpuscular Volume 84.2 fl (80-100); Mean Platelet Volume 8.9 fl (7.4-10.4); Platelet Count Result 361 k/mm3 (150-375); Red Blood Count 4.44 M/mm3 (4.6-6.20); Red Cell Distribution Width 12.2 % (11.5-14.5); White Blood Count 6.7 K/mm3 (4.5-10.0)
[2019-10-20 04:57] LABS: Alanine Aminotransferase 48 U/L (4-50); Albumin Level 3.1 g/dL (3.5-5.1); Alkaline Phosphatase 97 U/L (38-126); Anion Gap 6 mmol/L (8-16); Aspartate Amino Transferase 51 U/L (17-59); Bilirubin,Total 0.3 mg/dL (0.2-1.3); Blood Urea Nitrogen 28 mg/dL (9-20); Calcium 8.8 mg/dL (8.4-10.2); Carbon Dioxide 28 mmol/L (22-30); Chloride 93 mmol/L (98-107); Estimated CRCL calculation 48 ml/min; Estimated Glomerular Filt Rate > 60; Glucose 94 mg/dL (75-110); Magnesium 2.1 mg/dL (1.6-2.3); Potassium 4.7 mmol/L (3.4-5.0); Sodium 127 mmol/L (137-145)
[2019-10-20] MEDS: CENTRAL LINE FLUSH 10 ML IV PUSH (05:53)
[2019-10-20] MEDS: methylPREDNISolone SOD SUCC 40 MG VIAL 30 MG IV PUSH (09:20)
[2019-10-20] MEDS: FAMOTIDINE 20 MG/2 ML VIAL IV PUSH ×2 (09:22→21:17)
[2019-10-20] MEDS: ENOXAPARIN 40 MG/0.4 ML SYRINGE SUB-Q (09:22)
[2019-10-20] MEDS: polyethylene glycoL 3350 17 GM POWD.PACK PO (09:26)
--- NOTE | 2019-10-20 11:16 | PCPTNOTE ---
P.T. attempted to see patient at this time. Patient unable to participate due to Zoom viewing his father's service. P.T. will attempt to follow up later today. Plant to continue PT per plan of care.
[2019-10-20] MEDS: ACETAMINOPHEN 325 MG TABLET 650 MG PO (15:03)
[2019-10-20] MEDS: LIDOCAINE 5% PATCH 2 PATCH TRANSDERM (16:28)
--- NOTE | 2019-10-20 16:32 | PM.IMPN ---
Progress Note: A&P Assessment and Plan (1) Pneumonia: Qualifiers: Laterality: bilateral Lung location: unspecified part of lung Pneumonia type: due to unspecified organism Qualified Code(s): J18.9 - Pneumonia, unspecified organism Code(s): J18.9 - Pneumonia, unspecified organism Status: Acute Assessment and Plan: Initial CXR shows diffuse lung disease, likely pneumonia. Initial CXR, labs, and clinical picture were highly suggestive of COVID-19, however patient had 2 negative tests. His symptoms had been ongoing approximately [address] showed diffuse groundglass opacities throughout bilateral lung jackman. HIV screen drawn to evaluate for possible pneumonocystis pneumonia; found to be reactive. fever, elevated wcc. Repeat CXR 10/07 shows stable diffuse lung disease concerning for pneumocystis pneumonia. from previous notes unfortunately pt intubated last night due to respiratory failure. Sp bronchoschopy. reintubated yesterday pt is on IV rocephin and IV azithromycin. IV bactrim. Iv steroids and vasopressors _10/17/19 15:06 Initial CXR shows diffuse lung disease, likely pneumonia. Initial CXR, labs, and clinical picture were highly suggestive of COVID-19, however patient had 2 negative tests. His symptoms had been ongoing approximately [address] showed diffuse groundglass opacities throughout bilateral lung jackman. HIV screen drawn to evaluate for possible pneumonocystis pneumonia; found to be reactive. fever, elevated wcc. Repeat CXR 10/07 shows stable diffuse lung disease concerning for pneumocystis pneumonia. from previous notes unfortunately pt intubated last night due to respiratory failure. Sp bronchoschopy. reintubae on 10/1210/20/19 16:32 patient is a 44 year male HIV and hepatitis C on ventilator most likely secondary to PJP pneumonia patient seen by Dr. Zuniga started the patient on IV Bactrim 12/18, and IV steroids, discussed with leadite worker will continue present management and plan is to wean the patient off ventilator and further recommendation to follow, once patient is stable Dr. Zuniga is recommended to start the patient on antiviral for HIV and down the road treatment for hepatitis C after 6 months. on 10/16 patient was successfully extubated currently was on high-flownasal cannula. he was feeling much better compared to 10/17 not a short of breath it was able to sleep without oxygen last night, and patient was transferred to IMU, today repeat chest x-ray shows slight improvement in pneumonia, patient clinically symptoms are improving and is not requiring 1 L of oxygen, will continue present management will repeat chest x-ray on Tuesday, will do home O2 eval and if clinically stable will going discharge the patient home. (2) Concern about sexually transmitted disease in male without diagnosis: Code(s): Z71.1 - Person with feared health complaint in whom no diagnosis is made Status: Acute Assessment and Plan: Reactive HIV screening 10/03. Patient has both receptive and penetrative sex with males. Approximately 8 months ago, he had protected sex using a condom with an HIV positive male who he reports had undetectable viral load. Reactive screening has been discussed with him. CD4 absolute is 120. (3) Sinus tachycardia: Code(s): R00.0 - Tachycardia, unspecified Status: Acute Assessment and Plan: Review of telemetry reveals sinus tachycardia, no alarms overnight; asymptomatic. Likely multifactorial given fever, infection, and pain. TSH is wnl. He is not orthostatic. No pulmonary embolism seen on CTA. Echo performed on 10/05 with EF >70%, no wall abnormality, severe concentric hypertrophy, and possible HOCM. (4) Hypertension: Qualifiers: Hypertension type: essential hypertension Qualified Code(s): I10 - Essential (primary) hypertension Code(s): I10 - Essential
--- NOTE | 2019-10-20 19:10 | PM.PNPUL ---
Progress Note: A&P Assessment and Plan (1) Pneumocystis jiroveci pneumonia: Qualifiers: Laterality: bilateral Lung location: unspecified part of lung Qualified Code(s): B59 - Pneumocystosis Code(s): B59 - Pneumocystosis Status: Acute Assessment and Plan: continue Bactrim and systemic steroids. ID managing antibiotics (2) Pneumocystosis with HIV infection: Code(s): B20 - Human immunodeficiency virus [HIV] disease; B59 - Pneumocystosis Status: Acute (3) Acute respiratory failure with hypoxia: Code(s): J96.01 - Acute respiratory failure with hypoxia Status: Acute Assessment and Plan: Doing well. Quickly recovering. can be discharge home without oxygen. - Will need outpatient CXR in 4-5 weeks Subjective Date/time seen: 10/20/19 19:10 Interval history: Doing well, appetite improving. Down to 1 liter oxygen by nasal cannula Review of Systems Review of Systems: All systems reviewed & are unremarkable except as noted in HPI and below Exam Const: General: comfortable Other: diaphortetic Neck: Neck: supple and no JVD Resp: Auscultation: clear to auscultation bilaterally, no crackles, no rales and no rhonchi Cardio: Rate: tachycardic Heart sounds: no murmurs GI: Auscultation: normal bowel sounds Neuro: Other: intubated and sedated Extrem: General: normal to inspection and no edema Objective Data Vital Signs Vital Signs: Vital Signs - 24 hr 10/19/19 19:42 10/19/19 20:00 10/19/19 21:16 Temperature 36.9 C Pulse Rate 101 H 102 H Respiratory Rate 18 18 Blood Pressure 125/85 Pulse Oximetry 100 100 92 10/19/19 22:00 10/20/19 00:00 10/20/19 01:45 Temperature 36.6 C Pulse Rate 94 94 Respiratory Rate 18 Blood Pressure 120/74 Pulse Oximetry 100 100 10/20/19 01:58 10/20/19 02:10 10/20/19 04:00 Temperature 36.8 C Pulse Rate 96 103 H Respiratory Rate 18 Blood Pressure 127/84 Pulse Oximetry 100 100 10/20/19 06:00 10/20/19 06:15 10/20/19 06:35 Temperature Pulse Rate 103 H Respiratory Rate Blood Pressure Pulse Oximetry 99 98 10/20/19 08:00 08/22/20 10:00 10/20/19 10:18 Temperature 36.7 C Pulse Rate 105 H 103 H Respiratory Rate 20 Blood Pressure 122/76 Pulse Oximetry 97 97 10/20/19 10:44 10/20/19 11:43 10/20/19 11:50 Temperature Pulse Rate Respiratory Rate Blood Pressure Pulse Oximetry 95 87 L 92 10/20/19 12:00 10/20/19 13:29 10/20/19 14:00 Temperature 35.7 C L Pulse Rate 107 H 102 H 102 H Respiratory Rate 20 20 Blood Pressure 122/75 Pulse Oximetry 92 98 10/20/19 16:00 10/20/19 18:00 Temperature 36.7 C Pulse Rate 100 96 Respiratory Rate 20 Blood Pressure 109/78 Pulse Oximetry 98 Intake/Output Intake/Output: Intake & Output 10/17/19 10/18/19 10/19/19 10/20/19 23:59 23:59 23:59 23:59 Intake Total 2698 5469 094 5401 Output Total 3300 1751 765 775 [facility] [phone] Meds/Results Medications: Active Medications Generic Name Dose Route Start Last Admin Trade Name Freq PRN Reason Stop Dose Admin Acetaminophen 650 mg 10/20/19 14:28 10/20/19 15:03 Tylenol Tablet PO 650 mg Q6H PRN Administration Mild Pain (1-3) or Fever Enoxaparin Sodium 40 mg 10/05/19 09:00 10/20/19 09:22 Lovenox SUB-Q 40 mg DAILY RASHAWN Administration Famotidine 20 mg 10/02/19 21:00 10/20/19 09:22 Pepcid Iv IV PUSH 20 mg Q12HR RASHAWN Administration Hydralazine HCl 10 mg 10/15/19 18:23 10/17/19 13:16 Apresoline Hcl Inj IV PUSH 10 mg Q4HR PRN Administration Blood Pressure - High Hydrocortisone Acetate 25 mg 10/03/19 13:44 10/04/19 21:22 Anusol-Hc Suppository RECTAL 25 mg Q12HR PRN Administration rectal pain Ipratropium Pandora 0.5 mg 10/13/19 10:15 10/17/19 02:16 Atrovent Neb INHALATION 0.5 mg Q4HRT PRN Administration wheezing Levalbuterol HCl 1.25 mg
[2019-10-20] MEDS: MELATONIN 5 MG TABLET PO (23:40)
[2019-10-21] VITALS (7 sets, daily range): BP systolic 118–131; BP diastolic 76–97; PULSE 91–108; RESP 12–20; TEMP 35.8–36.2; O2SAT 90–98
[2019-10-21 04:44] LABS: Hematocrit 38.3 % (42.0-52.0); Mean Corpuscular HGB Conc 33.9 g/dl (32-36); Mean Corpuscular Hemoglobin 28.8 pg (26-34); Mean Corpuscular Volume 84.7 fl (80-100); Mean Platelet Volume 9.2 fl (7.4-10.4); Platelet Count Result 313 k/mm3 (150-375); Red Blood Count 4.52 M/mm3 (4.6-6.20); Red Cell Distribution Width 12.8 % (11.5-14.5); White Blood Count 4.9 K/mm3 (4.5-10.0)
[2019-10-21 05:02] LABS: Alanine Aminotransferase 53 U/L (4-50); Albumin Level 3.1 g/dL (3.5-5.1); Alkaline Phosphatase 98 U/L (38-126); Anion Gap 9 mmol/L (8-16); Aspartate Amino Transferase 51 U/L (17-59); Bilirubin,Total 0.2 mg/dL (0.2-1.3); Blood Urea Nitrogen 32 mg/dL (9-20); Calcium 8.8 mg/dL (8.4-10.2); Carbon Dioxide 25 mmol/L (22-30); Chloride 95 mmol/L (98-107); Estimated CRCL calculation 48 ml/min; Estimated Glomerular Filt Rate > 60; Glucose 88 mg/dL (75-110); Magnesium 2.2 mg/dL (1.6-2.3); Sodium 129 mmol/L (137-145)
[2019-10-21] MEDS: polyethylene glycoL 3350 17 GM POWD.PACK PO (08:20)
[2019-10-21] MEDS: FAMOTIDINE 20 MG/2 ML VIAL IV PUSH (08:22)
[2019-10-21] MEDS: LIDOCAINE 5% PATCH 2 PATCH TRANSDERM (08:22)
[2019-10-21] MEDS: methylPREDNISolone SOD SUCC 40 MG VIAL 30 MG IV PUSH (08:23)
[2019-10-21] MEDS: ENOXAPARIN 40 MG/0.4 ML SYRINGE SUB-Q (08:24)
--- NOTE | 2019-10-21 13:13 | PM.DS ---
DS: Admitting Diagnosis Admitting Diagnosis Admitting Diagnosis: pneumonia,hyoxemia DS: Discharge Diagnosis Discharge Diagnosis (1) Pneumonia: Qualifiers: Laterality: bilateral Lung location: unspecified part of lung Pneumonia type: due to unspecified organism Qualified Code(s): J18.9 - Pneumonia, unspecified organism Code(s): J18.9 - Pneumonia, unspecified organism Status: Acute Assessment and Plan: Initial CXR shows diffuse lung disease, likely pneumonia. Initial CXR, labs, and clinical picture were highly suggestive of COVID-19, however patient had 2 negative tests. His symptoms had been ongoing approximately [address] showed diffuse groundglass opacities throughout bilateral lung jackman. HIV screen drawn to evaluate for possible pneumonocystis pneumonia; found to be reactive. fever, elevated wcc. Repeat CXR 10/07 shows stable diffuse lung disease concerning for pneumocystis pneumonia. from previous notes unfortunately pt intubated last night due to respiratory failure. Sp bronchoschopy. reintubated yesterday pt is on IV rocephin and IV azithromycin. IV bactrim. Iv steroids and vasopressors _10/17/19 15:06 Initial CXR shows diffuse lung disease, likely pneumonia. Initial CXR, labs, and clinical picture were highly suggestive of COVID-19, however patient had 2 negative tests. His symptoms had been ongoing approximately [address] showed diffuse groundglass opacities throughout bilateral lung jackman. HIV screen drawn to evaluate for possible pneumonocystis pneumonia; found to be reactive. fever, elevated wcc. Repeat CXR 10/07 shows stable diffuse lung disease concerning for pneumocystis pneumonia. from previous notes unfortunately pt intubated last night due to respiratory failure. Sp bronchoschopy. reintubae on 10/1210/20/19 16:32 patient is a 44 year male HIV and hepatitis C on ventilator most likely secondary to PJP pneumonia patient seen by Dr. Zuniga started the patient on IV Bactrim 12/18, and IV steroids, discussed with doctor of veterinary medicine will continue present management and plan is to wean the patient off ventilator and further recommendation to follow, once patient is stable Dr. Zuniga is recommended to start the patient on antiviral for HIV and down the road treatment for hepatitis C after 6 months. on 10/16 patient was successfully extubated currently was on high-flownasal cannula. he was feeling much better compared to 10/17 not a short of breath it was able to sleep without oxygen last night, and patient was transferred to IMU, today repeat chest x-ray shows slight improvement in pneumonia, patient clinically symptoms are improving and is not requiring 1 L of oxygen, will continue present management will repeat chest x-ray on Tuesday, will do home O2 eval and if clinically stable will going discharge the patient home. (2) Concern about sexually transmitted disease in male without diagnosis: Code(s): Z71.1 - Person with feared health complaint in whom no diagnosis is made Status: Acute Assessment and Plan: Reactive HIV screening 10/03. Patient has both receptive and penetrative sex with males. Approximately 8 months ago, he had protected sex using a condom with an HIV positive male who he reports had undetectable viral load. Reactive screening has been discussed with him. CD4 absolute is 120. (3) Sinus tachycardia: Code(s): R00.0 - Tachycardia, unspecified Status: Acute Assessment and Plan: Review of telemetry reveals sinus tachycardia, no alarms overnight; asymptomatic. Likely multifactorial given fever, infection, and pain. TSH is wnl. He is not orthostatic. No pulmonary embolism seen on CTA. Echo performed on 10/05 with EF >70%, no wall abnormality, severe concentric hypertrophy, and possible HOCM. (4) Hypertension: Qualifiers: Hypertension type: essential hypertens
[2019-10-22 12:58] LABS: Reference Lab Test Result Detected
== END 2019-10-21 14:40 | disposition home or self-care (01) | DRG 890 ==
LOC: ANHED 14:29 → ANH3MEDSUR 14:39 → ANHIMU 10-09 23:07 → ANHICU 10-12 03:03 → ANHIMU 10-21 13:02 → ANHICU 10-22 13:15 → ANHIMU 10-22 13:15
PROVIDERS: Emergency Medicine Emergency Medical Services; Family Medicine; Internal Medicine; Internal Medicine Critical Care Medicine; Internal Medicine Infectious Disease; Physician Assistant; Admitting Provider Internal Medicine; Emergency Provider General Practice; Visit Provider Family Medicine
PROC: 0BJ08ZZ Inspection of Tracheobronchial Tree, Via Natural or Artificial Opening Endoscopic (ICD-10-PCS; CPT 31622; principal; 2019-10-12 13:00)
DX: B20 Human immunodeficiency virus [HIV] disease (principal); B59 Pneumocystosis; J96.01 Acute respiratory failure with hypoxia; R65.21 Severe sepsis with septic shock; A41.9 Sepsis, unspecified organism; I10 Essential (primary) hypertension; Z20.828 Contact with and (suspected) exposure to other viral communicable diseases; B19.20 Unspecified viral hepatitis C without hepatic coma; K64.9 Unspecified hemorrhoids; R45.7 State of emotional shock and stress, unspecified; Z87.891 Personal history of nicotine dependence
CPT/HCPCS: 31500; 36415; 36600; 71045; 71046; 71275; 74019; 80048; 80053; 80074; 80076; 82375; 82550; 82728; 82805; 83050; 83605; 83615; 83735; 84443; 85025; 85027; 85380; 85999; 86140; 86361; 86592; 86701; 86702; 86703; 87015; 87040; 87070; 87086; 87102; 87106; 87116; 87205; 87206; 87281; 87389; 87449; 87491; 87502; 87522; 87529; 87536; 87591; 87635; 87798; 87899; 93005; 93306; 94002; 94003; 94640; 94667; 94668; 96361; 96365; 96367; 96372; 96374; 96375; 96376; 97110; 97116; 97161; 97166; 97535; 99285; A9270; C1751; C9803; G0378; G0379; G0432; J0131; J0330; J0360; J0456; J0696; J1100; J1650; J1720; J1885; J1940; J2060; J2250; J2405; J2704; J2765; J2920; J3010; J7030; J7040; J7060; J7120; Q9967; U0003

== ENCOUNTER 2021-03-17 09:02 | Emergency (ER) | payer SELFPAY ==
--- NOTE | 2021-03-17 09:26 | PC.NURSE ---
code terminated. unsuccessful. mother at bedside
--- NOTE | 2021-03-17 09:33 | ED.CPR ---
HPI - CPR General Chief Complaint: Cardiac Arrest/CPR Stated Complaint: CARDIAC ARREST Time Seen by Provider: 03/17/21 09:30 Source: EMS and RN notes reviewed Mode of arrival: EMS History of Present Illness HPI narrative: Patient is 45 years old -[place] male brought to the ED by ambulance because of chest pain, diaphoresis, and responsiveness, and pulseless. CPR was in process with Ambu bag. On arrival to the ED with the monitor showing asystole. CPR process was continued,, monitor showing PEA, the code was continued for 60 minutes from the time of arrival of the ambulance to his house Family members at the bedside in the last 20 minutes of the CPR Related Data Home Medications Medication Instructions Recorded Confirmed ascorbic acid (vitamin C) 500 mg PO DAILY 10/02/19 10/02/19 fish lda-ddtam-2-vit C-vit E 1 g PO DAILY 10/02/19 10/02/19 ginseng 250 mg PO DAILY 10/02/19 10/02/19 vitamin B complex [B 1 tablet PO DAILY 10/02/19 10/02/19 Complex-Vitamin B12] vitamin E 1,000 unit PO DAILY 10/02/19 10/02/19 Allergies Allergy/AdvReac Type Severity Reaction Status Date / Time strawberry Allergy Swelling Verified 10/02/19 14:02 of Lip/Tongue/Throat tomato Allergy Swelling Verified 10/02/19 14:03 of Lip/Tongue/Throat zinc Allergy Rash Verified 10/02/19 14:02 Review of Systems Review of Systems: ROS unobtainable: Yes unobtainable due to endotracheal tube and unobtainable due to medical condition PMFSH Past Medical History Medical History (Updated 03/17/21 @ 18:41 by Romi Murrieta MD) Healthy adult male Hemorrhoids Unspecified asthma in childhood Family History Family History Mother COVID-19 Carcinoma of colon Breast cancer Father , Oct 05, 2019 at [facility] an hour after intubation, age 68 COVID-19 Sibling Diabetes mellitus Hypertension Social History Social History Social History: Mr. Ramos lives in an apartment with his aunt. 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 He designates his mom, Zeina, as his surrogate decision maker. He would like to be a full code. Years smoked: 4 Smoking status: Former smoker Tobacco type: cigars Smoking end date: 09/18/19 Additional smoking assessment comments: Smokes 2 cigars per day. Stopped 2 weeks ago when he became SOB. No vaping. 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 Gender identity (if verbalized by the patient): Male Spiritual care concerns: No Exam Narrative: General appearance: Well-developed, well-nourished Skin: Pale, cold Head: Normocephalic, nontraumatic Eyes: Clear conjunctiva ENT: Oropharynx normal, Neck: Supple, Chest and respiratory: No spontaneous breathing e Heart: Pulseless Abdomen: Soft, no mass, no swelling Vascular: Pulseless Neurologic: Unresponsive, pulseless Course Course Emergency Course: Procedures Intubation Intubation #1: Intubation Date: 03/17/21 Intubation Time: 11:35 Time out performed: Yes sedative: none paralytic: other (None) Laryngoscope: fiber optic video scope Tube Size (cm): 7.5 Method of Intubation: orotracheal Number of Attempts: 1 Tube Placement Confirmation: visualized tube passing through cords, equal breath sounds bilaterally, no breath sounds over epigastrium and confirmation by capnometry Patient Tolerated Procedure: no
--- NOTE | 2021-03-17 09:54 | PC.NURSE ---
bal from coroners office notified.
== END 2021-03-17 10:00 | disposition expired ==
PROVIDERS: Emergency Provider Emergency Medicine
DX: I46.9 Cardiac arrest, cause unspecified (principal); J45.909 Unspecified asthma, uncomplicated; Z87.891 Personal history of nicotine dependence
CPT/HCPCS: 31500; 92950; 99291; J0171